=== PATIENT | female | born 1980 ===

== ENCOUNTER 2019-07-06 22:12 | Emergency (ER) | payer OTHER ==
[~2019-07-06] VITALS: Ht 157.5 cm; Wt 65.0 kg
--- NOTE | 2019-07-06 22:42 | NUR ---
PT C/O ABDOMINAL PAIN, N/V, DENIES ANY OTHER C/O AT THIS TIME. REPORTS HX OF SAME POST GASTIC SLEEVE IN 2016. REPORTS PAIN IS WORSE FOR LAST X1 WEEK. PT CONENCTED TO MONITORING, CALL LIGHT WITHIN REACH, ALL SAFETY MEASURES IN PLACE.
[2019-07-06] MEDS ORDERED: HYDROmorphone 2 MG/ML, 1ML IVPush PRN (23:00)
[2019-07-06] MEDS ORDERED: PROMETHAZINE 25 MG/ML, 1ML IM ONE (23:00)
[2019-07-06] MEDS ORDERED: SODIUM CHLORIDE FLUSH 10ML SYR IVF ONE (23:00)
[2019-07-06] MEDS: SODIUM CHLORIDE 0.9% 1,000ML IVBOLUS ONE ×2 (23:15→23:42)
[2019-07-06] MEDS ORDERED: HYDROmorphone 1 MG/ML, 1ML INJ ONE (23:19)
[2019-07-06] MEDS ORDERED: PROMETHAZINE 25 MG/ML, 1ML ONE (23:19)
--- NOTE | 2019-07-06 23:49 | NUR ---
PT RESTING ON [place] WITH FAMILY AT BS. CHEST PORT ACCESSED, MEDICATED PER MAR AND IVF STARTED. PT TOLERATED WELL. PT RESPORTS NO NEEDS AT THIS TIME. PROVIDED BLANKET, CONNECTED TO MONTIORING, CALL LIGHT WITHIN REACH.
[2019-07-06 23:54] LABS: MICROSCOPIC INDICATED
[2019-07-06 23:59] LABS: MEAN CORPUSCULAR HEMOGLOBIN 28.3 pg (27.0-34.8); MEAN CORPUSCULAR HGB CONC 32.4 g/dL (32.4-35.8); MEAN CORPUSCULAR VOLUME 87.4 fL (80-100); MEAN PLATELET VOLUME 8.2 fL (7.4-10.4); PLATELET COUNT 123 x10^3/uL (130-400); RED BLOOD COUNT 2.74 x10^6/uL (3.82-5.3); RED CELL DISTRIBUTION WIDTH 20.5 % (9.6-15.2)
[2019-07-07] LABS: MD YES
[2019-07-07 00:03] LABS: CULTURE INDICATED? NO
[2019-07-07 00:08] LABS: ALANINE AMINOTRANSFERASE 24 U/L (12-78); ALBUMIN 1.7 g/dL (3.4-5.0); ANION GAP 7 mmol/L (5-15); CALCIUM 6.9 mg/dL (8.5-10.1); CHLORIDE 117 mmol/L (98-107); CREATININE 0.36 mg/dL (0.55-1.02)
[2019-07-07 00:13] LABS: ALKALINE PHOSPHATASE 232 U/L (45-117); BILIRUBIN,TOTAL 1.4 mg/dL (0.2-1.0)
[2019-07-07 00:24] LABS: EOS% (MANUAL) 2 % (1-7); LYMPHS% (MANUAL) 36 % (22-44); MONOS#(MANUAL) 0.05 x10^3/uL (0.3-2.7); MONOS% (MANUAL) 1 % (2-9); SEG#(MANUAL) 3.05 x10^3/uL (1.8-6.8); SEGS% (MANUAL) 61 % (42-75)
[2019-07-07 00:25] LABS: ANISOCYTOSIS 1+
[2019-07-07 00:33] LABS: ECHINOCYTES 1+; SCHISTOCYTES 1+
[2019-07-07 00:34] LABS: OVALOCYTES 1+
[2019-07-07 00:35] LABS: <PLATELET ESTIMATE> ADEQUATE; <PLT MORPHOLOGY> NORMAL PLT MORPH
--- NOTE | 2019-07-07 01:04 | NUR ---
PT RESTING ON [facility] WITH FAMILY AT , AWAITING IMAGING AND LAB RESULTS AT THIS TIME. ALL MONITORS CONNECTED, CALL LIGHT WITHIN REACH.
--- NOTE | 2019-07-07 01:35 | NUR ---
PT PORT FLUSHED WITH 5ML HEPARIN AND D/C'D. PT TOLERATED WELL.
[2019-07-07 01:36] VITALS: BP 101/64
== END 2019-07-07 01:39 | disposition home or self-care (01) ==
LOC: ED 23:00
DX: K70.31 Alcoholic cirrhosis of liver with ascites (principal); R11.10 Vomiting, unspecified
CPT/HCPCS: 74176; 96361; 96372; 96374; 99284; J7030

== ENCOUNTER 2019-07-09 03:19 | Emergency (ER) | payer OTHER ==
[~2019-07-09] VITALS: Ht 160 cm; Wt 66.0 kg
--- NOTE | 2019-07-09 03:30 | NUR ---
BIB EMS W/ CO GENERALIZED ABD PAIN/N/V X TWO DAYS. ABD DISTENDED AND DIFFUSELY TENDER. HX OF LIVER CIRRHOSIS, LAST DRINK TODAY. +JAUNDICE. SEEN IN ED 07/06 FOR SAME. LBM "A FEW DAYS AGO". REPORTS BLOOD IN EMESIS, DENIES HX OF ESOPHAGEAL VARICES OR TAKING BLOOD THINNERS. EMS REPORTS NO VOMITING ENROUTE FROM [facility]. GIVEN IM PHENERGAN AND INTRANASAL FENTANYL PET WALKER WITH LITTLE IMPROVEMENT IN PAIN, 04/24. BP/SPO2 MONITORING IN PLACE. SO AT BEDSIDE. REPORT TO PRIMARY RNNETO.
--- NOTE | 2019-07-09 03:56 | NUR ---
RECEIVED REPORT FROM NOHEMI COBB TO ASSUME CARE OF PT. AT THIS TIME.
[2019-07-09] MEDS ORDERED: LIDOCAINE-MPF 1%, 5ML ONE (04:15)
[2019-07-09 04:23] LABS: ALANINE AMINOTRANSFERASE 29 U/L (12-78); ALBUMIN 2.1 g/dL (3.4-5.0); ANION GAP 9 mmol/L (5-15); CALCIUM 7.4 mg/dL (8.5-10.1); CHLORIDE 118 mmol/L (98-107); CREATININE 0.57 mg/dL (0.55-1.02)
[2019-07-09 04:25] LABS: ALKALINE PHOSPHATASE 270 U/L (45-117); TOTAL PROTEIN 7.4 g/dL (6.4-8.2)
[2019-07-09] MEDS ORDERED: PROMETHAZINE 25 MG/ML, 1ML ONE (04:29)
[2019-07-09] MEDS ORDERED: PROMETHAZINE 25 MG/ML, 1ML IM ONE (04:30)
[2019-07-09] MEDS ORDERED: HYDROmorphone 1 MG/ML, 1ML INJ ONE (04:30)
[2019-07-09] MEDS ORDERED: LIDOCAINE 1%, 10ML INFIL ONE (04:30)
[2019-07-09] MEDS ORDERED: HYDROmorphone 2 MG/ML, 1ML IVPush PRN (04:30)
[2019-07-09] MEDS ORDERED: SODIUM CHLORIDE 0.9% 1,000ML IVBOLUS ONE (04:30)
--- NOTE | 2019-07-09 04:34 | NUR ---
PARACENTESIS REMAINS IN PROCESS BY DR. PLEITEZ. WILL ACCESS PORT, REDRAW LABS, AND MEDICATE PT. WHEN DR. PLEITEZ FINISHED.
--- NOTE | 2019-07-09 05:04 | NUR ---
PORT ACCESSED; PT. TOLERATED WELL. PT MEDICATED PER MAR. IVF INFUSING. BLOOD DRAWN AND SENT TO LAB. AT BS FOR SUPPORT. PT. DENIES OTHER NEEDS AT THIS TIME. O2 PLACED FOR DESAT AFTER PAIN MEDS WITH IMMEDIATE INCREASE OF O2 SAT TO 96% AND ABOVE.
[2019-07-09 05:12] LABS: MEAN CORPUSCULAR HEMOGLOBIN 27.9 pg (27.0-34.8); MEAN CORPUSCULAR HGB CONC 32.3 g/dL (32.4-35.8); MEAN CORPUSCULAR VOLUME 86.6 fL (80-100); PLATELET COUNT 121 x10^3/uL (130-400); RED BLOOD COUNT 2.89 x10^6/uL (3.82-5.3); RED CELL DISTRIBUTION WIDTH 20.4 % (9.6-15.2)
[2019-07-09 05:38] LABS: MD YES
[2019-07-09 05:43] LABS: ANISOCYTOSIS 1+; BAND#(MANUAL) 0.15 x10^3/uL; BANDS%(MANUAL) 3 % (0-7); ECHINOCYTES 1+; EOS% (MANUAL) 2 % (1-7); LYMPH#(MANUAL) 2.04 x10^3/uL (1-3.4); LYMPHS% (MANUAL) 40 % (22-44); MONOS#(MANUAL) 0.26 x10^3/uL (0.3-2.7); MONOS% (MANUAL) 5 % (2-9); SEG#(MANUAL) 2.55 x10^3/uL (1.8-6.8); SEGS% (MANUAL) 50 % (42-75)
[2019-07-09 05:45] LABS: <PLATELET ESTIMATE> DECREASED; SCHISTOCYTES 1+
[2019-07-09 05:46] LABS: <PLT MORPHOLOGY> NORMAL PLT MORPH
[2019-07-09 05:52] LABS: CELLS COUNTED 76
[2019-07-09 06:42] VITALS: BP 102/61
== END 2019-07-09 06:43 | disposition home or self-care (01) ==
LOC: ED 04:02
DX: K70.31 Alcoholic cirrhosis of liver with ascites (principal)
CPT/HCPCS: 36415; 49083; 80053; 83690; 85025; 87070; 87205; 89051; 96361; 96372; 96374; 99285; J1170; J2550; J7030

== ENCOUNTER 2019-07-11 23:45 | Emergency (ER) | payer BC, OTHER ==
[~2019-07-11] VITALS: Ht 160 cm; Wt 65.1 kg
--- NOTE | 2019-07-12 01:10 | NUR ---
THIS IS A 38Y F THAT COMES FROM HOME FOR ABD PAIN LASTING 3 DAYS. PT STS PAIN IS WORSENING AND SHE IS UNABLE TO EAT BECAUSE OF THIS. PT HAS HX OF GASTRIC SX LAST ONE 2016. HX OF CARDIAC ARREST 06/18/19. PT CONNECTED TO ALL MONITORS, VSS CALL LIGHT IN REACH AT BEDSIDE. URINE SAMPLE SENT TO LAB
--- NOTE | 2019-07-12 01:36 | NUR ---
URINE SENT TO LAB
[2019-07-12 02:00] LABS: CULTURE INDICATED? YES; MICROSCOPIC INDICATED
[2019-07-12] MEDS ORDERED: OMNIPAQUE 350 MG/ML, 100ML BOTTLE ONE (02:04)
[2019-07-12] MEDS ORDERED: DIPHENHYDRAMINE 50 MG/ML, 1ML ONE (02:10)
[2019-07-12] MEDS ORDERED: PROCHLORPERAZINE 5 MG/ML, 2ML ONE (02:10)
[2019-07-12] MEDS ORDERED: MORPHINE SULFATE 4 MG/ML, 1ML ONE (02:11)
[2019-07-12] MEDS ORDERED: DIPHENHYDRAMINE 50 MG/ML, 1ML IVPush ONE (02:30)
[2019-07-12] MEDS ORDERED: PROCHLORPERAZINE 5 MG/ML, 2ML IVPush ONE (02:30)
[2019-07-12] MEDS ORDERED: MORPHINE SULFATE 4 MG/ML, 1ML IVPush PRN (02:30)
[2019-07-12 02:48] LABS: ALANINE AMINOTRANSFERASE 23 U/L (12-78); ALBUMIN 1.9 g/dL (3.4-5.0); ANION GAP 8 mmol/L (5-15); CALCIUM 7.3 mg/dL (8.5-10.1); CHLORIDE 114 mmol/L (98-107); CREATININE 0.49 mg/dL (0.55-1.02)
[2019-07-12 02:50] LABS: ALKALINE PHOSPHATASE 241 U/L (45-117); BILIRUBIN,TOTAL 2.4 mg/dL (0.2-1.0); TOTAL PROTEIN 6.8 g/dL (6.4-8.2)
--- NOTE | 2019-07-12 02:52 | NUR ---
PT TO CT Addendum: 07/12/19 at 0259 by [email or web address] PT MEDICATED PRIOR TO CT WITH CONTRAST PER MD
[2019-07-12 02:57] LABS: MEAN CORPUSCULAR HGB CONC 32.1 g/dL (32.4-35.8); MEAN CORPUSCULAR VOLUME 87.2 fL (80-100); MEAN PLATELET VOLUME 8.4 fL (7.4-10.4); PLATELET COUNT 119 x10^3/uL (130-400); RED BLOOD COUNT 3.11 x10^6/uL (3.82-5.3); RED CELL DISTRIBUTION WIDTH 20.8 % (9.6-15.2)
[2019-07-12 03:15] LABS: MD YES
[2019-07-12 03:20] VITALS: BP 128/84
[2019-07-12 03:20] LABS: EOS#(MANUAL) 0.43 x10^3/uL (0.0-0.4); EOS% (MANUAL) 8 % (1-7); LYMPH#(MANUAL) 2.32 x10^3/uL (1-3.4); LYMPHS% (MANUAL) 43 % (22-44); SEG#(MANUAL) 2.65 x10^3/uL (1.8-6.8); SEGS% (MANUAL) 49 % (42-75)
--- NOTE | 2019-07-12 03:21 | NUR ---
BREAK RN: PT BACK FROM CT, RESTING ON GURNEY IN NAD. DENIES ANY NEEDS AT THIS TIME. AWAITING CT RESULTS. WILL CONTINUE TO MONITOR.
[2019-07-12 03:22] LABS: <PLATELET ESTIMATE> DECREASED; <PLT MORPHOLOGY> NORMAL PLT MORPH; ANISOCYTOSIS 1+; HYPOCHROMIA 1+; MICROCYTOSIS 1+; OVALOCYTES 1+; TARGET CELLS 1+
--- NOTE | 2019-07-12 04:13 | NUR ---
PT GIVEN ICE WATER FOR PO CHALLENGE, PT TOLERATING SIPS WITHOUT NAUSEA OR DIFFICULTY. MD TO BE UPDATED
--- NOTE | 2019-07-12 04:17 | NUR ---
AT BEDSIDE FOR REASSESSMENT OF PT
== END 2019-07-12 04:36 | disposition home or self-care (01) ==
LOC: ED 07-12 01:24
DX: K70.31 Alcoholic cirrhosis of liver with ascites (principal); R10.84 Generalized abdominal pain; R11.2 Nausea with vomiting, unspecified; N28.1 Cyst of kidney, acquired
CPT/HCPCS: 36415; 74177; 80053; 81001; 81025; 83690; 85025; 87086; 87147; 93005; 96374; 96375; 99284; J0780; J1200; J2270; Q9967

== ENCOUNTER 2019-07-20 20:21 | Emergency (ER) | payer BC, OTHER ==
[~2019-07-20] VITALS: Ht 160 cm; Wt 65.5 kg
--- NOTE | 2019-07-20 20:59 | NUR ---
First contact with pt. Pt c/o SOB, N/V, upper abd pain x2 weeks. Pt states seen here multiple times for same, no improvement. Pt speaking in full sentences, noted abd distention. Pt placed in gown and positioned for comfort in bed with warm blankets. Continuous heart, oxygen and BP monitors applied, all safety measures observed. Awaiting provider eval.
[2019-07-20] MEDS ORDERED: HYDROmorphone 2 MG/ML, 1ML IVPush PRN (21:30)
[2019-07-20] MEDS ORDERED: PROMETHAZINE 25 MG/ML, 1ML IM ONE (21:30)
--- NOTE | 2019-07-20 21:43 | NUR ---
Pt's port accessed and labs collected, labeled at bedside, sent to lab. Pt taken to US via [place].
[2019-07-20 21:59] LABS: ALANINE AMINOTRANSFERASE 21 U/L (12-78); ALBUMIN 1.8 g/dL (3.4-5.0); ANION GAP 6 mmol/L (5-15); CALCIUM 7.2 mg/dL (8.5-10.1); CHLORIDE 113 mmol/L (98-107); CREATININE 0.57 mg/dL (0.55-1.02)
[2019-07-20 22:03] LABS: ALKALINE PHOSPHATASE 217 U/L (45-117); BILIRUBIN,TOTAL 1.5 mg/dL (0.2-1.0); MD YES; MEAN CORPUSCULAR HEMOGLOBIN 28.1 pg (27.0-34.8); MEAN CORPUSCULAR HGB CONC 31.6 g/dL (32.4-35.8); MEAN PLATELET VOLUME 8.6 fL (7.4-10.4); PLATELET COUNT 61 x10^3/uL (130-400); RED BLOOD COUNT 2.65 x10^6/uL (3.82-5.3); RED CELL DISTRIBUTION WIDTH 26.6 % (9.6-15.2); TOTAL PROTEIN 6.4 g/dL (6.4-8.2); TROPONIN I < 0.015 ng/mL (0.000-0.045)
[2019-07-20 22:09] LABS: ANISOCYTOSIS 1+; EOS#(MANUAL) 0.07 x10^3/uL (0.0-0.4); EOS% (MANUAL) 2 % (1-7); HYPOCHROMIA 1+; LYMPH#(MANUAL) 1.41 x10^3/uL (1-3.4); LYMPHS% (MANUAL) 38 % (22-44); MICROCYTOSIS 1+; MONOS#(MANUAL) 0.26 x10^3/uL (0.3-2.7); MONOS% (MANUAL) 7 % (2-9); SEG#(MANUAL) 1.96 x10^3/uL (1.8-6.8); SEGS% (MANUAL) 53 % (42-75)
[2019-07-20 22:10] LABS: OVALOCYTES 1+; SPHEROCYTES 1+; TARGET CELLS 1+
[2019-07-20 22:11] LABS: <PLATELET ESTIMATE> DECREASED; <PLT MORPHOLOGY> NORMAL PLT MORPH; SCHISTOCYTES 1+
[2019-07-20] MEDS ORDERED: PROMETHAZINE 25 MG/ML, 1ML ONE (22:25)
[2019-07-20] MEDS ORDERED: HYDROmorphone 1 MG/ML, 1ML INJ ONE (22:25)
--- NOTE | 2019-07-20 22:30 | NUR ---
Pt medicated per MAR, denies other needs.
[2019-07-20] MEDS ORDERED: LIDOCAINE-MPF 1%, 5ML ONE (22:55)
--- NOTE | 2019-07-20 23:15 | NUR ---
Pt resting in bed with eyes closed, resp even and unlabored, NADN.
[2019-07-20] MEDS ORDERED: DIPHENHYDRAMINE 50 MG/ML, 1ML ONE (23:19)
--- NOTE | 2019-07-20 23:23 | NUR ---
Pt pre-medicated with Benadryl per SEP. Pt to CT via sal.
[2019-07-20] MEDS ORDERED: DIPHENHYDRAMINE 50 MG/ML, 1ML IVPush PRN (23:30)
[2019-07-20] MEDS ORDERED: OMNIPAQUE 350 MG/ML, 100ML BOTTLE ONE (23:35)
--- NOTE | 2019-07-20 23:38 | NUR ---
Pt back from CT, resting in bed with eyes closed, resp even and unlabored, NADN. Appears to have tolerated the CT contrast without adverse reaction.
--- NOTE | 2019-07-21 00:07 | NUR ---
Pt continues resting in bed with eyes closed, resp even and unlabored, NADN.
--- NOTE | 2019-07-21 01:00 | NUR ---
Pt continues resting in bed with eyes closed, resp even and unlabored, NADN.
[2019-07-21 01:10] LABS: CELLS COUNTED 22
--- NOTE | 2019-07-21 01:22 | NUR ---
Dr. Montemayor at bedside to discuss POC with pt.
--- NOTE | 2019-07-21 01:40 | NUR ---
PORT ACCESSED DC'D, FLUSHED WITH HEPARIN FLUSH PER PROTOCOL. POC DISCUSSED. PT DECLINES ASSISTANCE GETTING DRESSED. CALL LIGHT AT BEDSIDE. AWAITING DC PAPERWORK AT THIS TIME.
[2019-07-21 01:48] VITALS: BP 119/54
--- NOTE | 2019-07-21 01:54 | NUR ---
pt ambulatory with steady gait to dc desk
[2019-07-21] MEDS ORDERED: POTA25TA PO (19:12)
[2019-07-21] MEDS ORDERED: MAGN300C PO (19:12)
[2019-07-21] MEDS ORDERED: LACT10SO28 PO (19:13)
[2019-07-21] MEDS ORDERED: ACET650S21 PO (19:13)
[2019-07-21] MEDS ORDERED: FURO-93 PO (19:13)
== END 2019-07-21 01:55 | disposition home or self-care (01) ==
LOC: ED 21:17
DX: R10.84 Generalized abdominal pain (principal); R06.00 Dyspnea, unspecified; D53.9 Nutritional anemia, unspecified; K70.31 Alcoholic cirrhosis of liver with ascites
CPT/HCPCS: 36415; 49083; 71275; 74177; 80053; 82042; 83615; 83690; 84484; 84703; 85025; 85379; 87070; 87205; 89051; 93005; 93971; 96372; 96374; 96375; 99285; J1170; J1200; J2550; Q9967

== ENCOUNTER 2019-07-21 16:16 | Inpatient (IN) | payer OTHER ==
[~2019-07-21] VITALS: Ht 160 cm; Wt 65.6 kg
--- NOTE | 2019-07-21 16:45 | NUR ---
lemon grower: Pt ambulatory to ED room 23 from lobby in [facility] at this time. Pt declined wheelchair to room.
--- NOTE | 2019-07-21 16:55 | NUR ---
THIS IS A 38 YO FEMALE COMING IN FOR INCREASED DISTENTION OF ABDOMEN LEADING TO CHEST PAIN AND DIFFICULTY TAKING DEEP BREATHS. PATIENT STATES "I WAS SEEN HERE LAST NIGHT FOR ABDOMINAL PAIN, I HAVE CIRRHOSIS, AND THEY DRAINED 125ML TO TEST FOR INFECTION".PATIENT STATES NOW THERE IS AN INCREASE IN DISTENTION, LEADING TO PRESSURE AND PAIN IN CHEST RATED 10/10, SWELLING IN THE LOWER LEGS, AND DIFFICULTY TAKING DEEP BREATHS. PATIENT DESCRIBED THE PAIN THROBBING, "HEAD PRESSURE, I CAN FEEL MY HEARTBEAT IN MY HEAD", AND CONSTANT. PATIENT HAS HX OF CARDIAC ARREST 1 MONTH AGO DUE TO LOW POTASSIUM. PATIENT HAS PORT PLACED IN RIGHT UPPER CHEST FOR ACCESS, AND WAS PREVIOUSLY GIVEN TPA THROUGH PORT. PATIENT'S ABDOMEN IS DISTENDED, ROUND, AND TENDER TO PALPATION IN ALL QUADRANTS. ALL MONITORING IN PLACE, NSR NOTED ON MONITOR, VSS, NAD, CALL LIGHT IN REACH, FAMILY IN ROOM.
[2019-07-21] MEDS ORDERED: MORPHINE SULFATE 4 MG/ML, 1ML IVPush PRN (17:00)
[2019-07-21] MEDS ORDERED: DIPHENHYDRAMINE 50 MG/ML, 1ML IVPush ONE (17:00)
[2019-07-21 17:04] LABS: ALANINE AMINOTRANSFERASE 22 U/L (12-78); ALBUMIN 1.9 g/dL (3.4-5.0); ANION GAP 5 mmol/L (5-15); CALCIUM 7.1 mg/dL (8.5-10.1); CHLORIDE 112 mmol/L (98-107)
[2019-07-21 17:09] LABS: ALKALINE PHOSPHATASE 209 U/L (45-117); BILIRUBIN,TOTAL 1.6 mg/dL (0.2-1.0); TOTAL PROTEIN 6.8 g/dL (6.4-8.2); TROPONIN I < 0.015 ng/mL (0.000-0.045)
[2019-07-21] MEDS ORDERED: ONDANSETRON 2MG/ML, 2ML ONE (17:09)
[2019-07-21] MEDS ORDERED: DIPHENHYDRAMINE 50 MG/ML, 1ML ONE (17:09)
[2019-07-21] MEDS ORDERED: MORPHINE SULFATE 4 MG/ML, 1ML ONE ×2 (17:09→21:34)
[2019-07-21] MEDS ORDERED: PROMETHAZINE 25 MG/ML, 1ML ONE (17:13)
[2019-07-21 17:27] LABS: MD YES; MEAN CORPUSCULAR HEMOGLOBIN 28.1 pg (27.0-34.8); MEAN CORPUSCULAR HGB CONC 31.6 g/dL (32.4-35.8); MEAN CORPUSCULAR VOLUME 89.1 fL (80-100); MEAN PLATELET VOLUME 8.6 fL (7.4-10.4); PLATELET COUNT 62 x10^3/uL (130-400); RED BLOOD COUNT 2.79 x10^6/uL (3.82-5.3); RED CELL DISTRIBUTION WIDTH 27.1 % (9.6-15.2)
[2019-07-21] MEDS ORDERED: PROMETHAZINE 25 MG/ML, 1ML IM ONE (17:30)
--- NOTE | 2019-07-21 17:36 | NUR ---
MAIDA RN PLACED PORT WITH STERILE TECHNIQUE. PATIENT MEDICATED THROUGH PORT PER EMAR, TOELRATED WELL. VSS, NAD, DENIES NEEDS AT THIS TIME.
[2019-07-21 17:52] LABS: BASOS#(MANUAL) 0.03 x10^3/uL (0-0.1); BASOS% (MANUAL) 1 % (0-1); EOS#(MANUAL) 0.03 x10^3/uL (0.0-0.4); EOS% (MANUAL) 1 % (1-7); LYMPH#(MANUAL) 0.96 x10^3/uL (1-3.4); LYMPHS% (MANUAL) 29 % (22-44); MONOS% (MANUAL) 9 % (2-9); SEG#(MANUAL) 1.98 x10^3/uL (1.8-6.8); SEGS% (MANUAL) 60 % (42-75)
[2019-07-21 17:53] LABS: HYPOCHROMIA 1+; OVALOCYTES 1+; POLYCHROMASIA 1+; SCHISTOCYTES 1+
[2019-07-21 17:54] LABS: TARGET CELLS 1+
[2019-07-21 17:55] LABS: CRENATED 1+
[2019-07-21 17:56] LABS: MICROCYTOSIS 1+
[2019-07-21 17:57] LABS: <PLATELET ESTIMATE> DECREASED; <PLT MORPHOLOGY> NORMAL PLT MORPH
--- NOTE | 2019-07-21 18:00 | NUR ---
pt to ct
--- NOTE | 2019-07-21 18:25 | NUR ---
PATIENT COMING BACK FROM CT WITH CRUSHING CHEST PAIN. EKG COMPLETED, GIVEN TO MD HERNANDO. PT PLACED ON 2L NC.
[2019-07-21] MEDS ORDERED: OMNIPAQUE 350 MG/ML, 100ML BOTTLE ONE (18:31)
[2019-07-21] MEDS ORDERED: LORazepam 2 MG/ML, 1ML ONE (18:36)
[2019-07-21] MEDS ORDERED: FENTANYL PF 100 MCG/2ML ONE (18:36)
--- NOTE | 2019-07-21 18:47 | NUR ---
1837: MD TO ROOM TO DISCUSS RESULTS AND PLAN OF CARE PATIENT MEDICATED PER EMAR FOR PAIN AND SHAKING, TOLERATED WELL. IVF STARTED TO MAINTAIN BLOOD PRESSURE. CALL LIGHT IN REACH, VSS AT THIS TIME, CALL LIGHT IN REACH, FAMILY IN ROOM. PATIENT STATES PAIN IS DOWN TO 8-9/10
[2019-07-21] MEDS ORDERED: FENTANYL PF 100 MCG/2ML IV ONE (19:00)
[2019-07-21] MEDS ORDERED: SODIUM CHLORIDE 0.9%, 500ML IVBOLUS ONE (19:00)
[2019-07-21] MEDS ORDERED: LORazepam 2 MG/ML, 1ML IVPush ONE (19:00)
--- NOTE | 2019-07-21 19:05 | NUR ---
PATIENT STATES PAIN IS NOW 6-7/10, RESTING ON GURNEY, NO LABORED BREATHING, SPEAKING IN FULL SENTENCES. VSS, NAD, CALL LIGHT IN REACH, FAMILY IN ROOM
[2019-07-21] MEDS ORDERED: POTA25TA PO (19:12)
[2019-07-21] MEDS ORDERED: MAGN300C PO (19:12)
[2019-07-21] MEDS ORDERED: ACET650S21 PO (19:13)
[2019-07-21] MEDS ORDERED: FURO-93 PO (19:13)
[2019-07-21] MEDS ORDERED: LACT10SO28 PO (19:13)
--- NOTE | 2019-07-21 19:48 | NUR ---
PATIENT RESTING, RESPIRATIONS EVEN AND UNLABORED. CALL LIGHT IN REACH, VSS, ON 2L NC, ALL MONITORING IN PLACE. FAMILY IN ROOM.
[2019-07-21] MEDS ORDERED: morphine SULFATE 10 MG/ML, 1ML IVPush PRN (20:00)
[2019-07-21] MEDS ORDERED: hydrALAzine 20 MG/ML, 1ML IVPush PRN (20:00)
[2019-07-21 20:28] LABS: FREE T4 (FREE THYROXINE) 1.33 ng/dL (0.76-1.46)
[2019-07-21] MEDS ORDERED: LACTULOSE 10 GM/15 ML UDC PO SCH (21:00)
--- NOTE | 2019-07-21 21:00 | NUR ---
LABS DRAWN OFF PORT PER LAB ORDERS.
--- NOTE | 2019-07-21 21:30 | NUR ---
PHARMACY SLIP SENT FOR ALBUMIN
[2019-07-21 21:31] LABS: INTERNATIONAL NORMALIZED RATIO 1.92 (0.93-1.1); PROTHROMBIN TIME 19.7 Seconds (9.6-11.5)
--- NOTE | 2019-07-21 21:52 | NUR ---
CALL PLACED TO PHARMACY TO CHECK WHERE ALBUMIN IS. PHARMACY STATES THEY WILL SEND IT SHORTLY
[2019-07-21] MEDS: ALBUMIN HUMAN 25% 100 ML IV SCH (22:01)
--- NOTE | 2019-07-21 22:07 | NUR ---
ALBUMIN STARTED PRIOR TO TRANSPORT
--- NOTE | 2019-07-21 22:13 | NUR ---
REPORT GIVEN TO NOHEMI BARRERA. PLAN OF CARE DISCUSSED. RN AWARE ALBUMIN INFUSING AT TIME OF TRANSFER.
[2019-07-21 23:14] VITALS: BP 106/66
[2019-07-21] MEDS: OXYcodone IR 5MG TABLET PO PRN (23:22)
[2019-07-21] MEDS: LACTULOSE 10 GM/15 ML UDC PO SCH (23:22)
[2019-07-22] VITALS (10 sets, daily range): BP systolic 104–117; BP diastolic 60–75
[2019-07-22] MEDS: OXYcodone IR 5MG TABLET PO PRN ×6 (00:05→21:16)
[2019-07-22 00:19] LABS: MICROSCOPIC NOT IND
[2019-07-22 00:22] LABS: CULTURE INDICATED? NO
[2019-07-22] MEDS: TEMAZEPAM 15 MG CAPSULE PO PRN ×2 (00:50→20:39)
[2019-07-22] MEDS: ALBUMIN HUMAN 25% 100 ML IV SCH ×2 (04:03→10:59)
[2019-07-22] MEDS: PROMETHAZINE 25 MG/ML, 1ML IM PRN ×2 (04:06→09:00)
[2019-07-22 05:47] LABS: CHLORIDE 108 mmol/L (98-107)
[2019-07-22 05:56] LABS: ALANINE AMINOTRANSFERASE 18 U/L (12-78); ALBUMIN 2.3 g/dL (3.4-5.0); ALKALINE PHOSPHATASE 156 U/L (45-117); ANION GAP 8 mmol/L (5-15); BILIRUBIN,TOTAL 2.3 mg/dL (0.2-1.0); CALCIUM 6.9 mg/dL (8.5-10.1); CHOL/HDL RATIO 3.1; CHOLESTEROL, TOTAL 108 mg/dL (140-239); CREATININE 0.52 mg/dL (0.55-1.02); HDL CHOL % 32 % (28-40); HDL CHOLESTEROL (DIRECT) 35 mg/dL (40-60); LDL CHOLESTEROL,CALCULATED 58 mg/dL (54-169); LDL/HDL RATIO 1.7 (0.5-3.0); TOTAL PROTEIN 5.8 g/dL (6.4-8.2); TRIGLYCERIDES 76 mg/dL (50-200); VLDL CHOLESTEROL 15 mg/dL (0-25)
[2019-07-22 08:00] LABS: MEAN CORPUSCULAR HEMOGLOBIN 28.8 pg (27.0-34.8); MEAN CORPUSCULAR HGB CONC 32.2 g/dL (32.4-35.8); MEAN CORPUSCULAR VOLUME 89.6 fL (80-100); MEAN PLATELET VOLUME 8.6 fL (7.4-10.4); PLATELET COUNT 50 x10^3/uL (130-400); RED CELL DISTRIBUTION WIDTH 26.2 % (9.6-15.2)
[2019-07-22 08:01] LABS: MD YES
[2019-07-22 08:05] LABS: LYMPH#(MANUAL) 1.22 x10^3/uL (1-3.4); LYMPHS% (MANUAL) 58 % (22-44); MONOS#(MANUAL) 0.17 x10^3/uL (0.3-2.7); MONOS% (MANUAL) 8 % (2-9); SEG#(MANUAL) 0.71 x10^3/uL (1.8-6.8); SEGS% (MANUAL) 34 % (42-75)
[2019-07-22 08:07] LABS: <PLATELET ESTIMATE> DECREASED; <PLT MORPHOLOGY> NORMAL PLT MORPH; ANISOCYTOSIS 2+; HYPOCHROMIA 1+; POLYCHROMASIA 1+
[2019-07-22 08:11] LABS: TARGET CELLS 1+
[2019-07-22] MEDS: MAGNESIUM OXIDE 400 MG TABLET PO SCH ×2 (09:00→09:02)
[2019-07-22] MEDS: FUROSEMIDE 20 MG TABLET PO SCH ×2 (09:00→09:02)
[2019-07-22] MEDS: SPIRONOLACTONE 25 MG TABLET PO SCH ×2 (09:00→09:02)
[2019-07-22] MEDS: LACTULOSE 10 GM/15 ML UDC PO SCH ×4 (09:00→20:39)
[2019-07-22] MEDS: POTASSIUM CHLORIDE 20 MEQ TAB.ER.PRT PO SCH ×2 (09:00→09:02)
[2019-07-22] MEDS: DIPHENHYDRAMINE 50 MG/ML, 1ML IVPush PRN ×2 (12:04→18:31)
[2019-07-22] MEDS ORDERED: LIDOCAINE 1%, 10ML ONE (12:34)
[2019-07-23 00:20] VITALS: BP 115/73
[2019-07-23] MEDS: DIPHENHYDRAMINE 50 MG/ML, 1ML IVPush PRN ×2 (02:00→08:59)
[2019-07-23] MEDS: OXYcodone IR 5MG TABLET PO PRN ×2 (02:00→06:21)
[2019-07-23] MEDS ORDERED: POTASSIUM CHLORIDE 20 MEQ TAB.ER.PRT PO ONE (07:00)
[2019-07-23 07:11] VITALS: BP 115/71
[2019-07-23 08:06] LABS: ALANINE AMINOTRANSFERASE 16 U/L (12-78); ALBUMIN 2.3 g/dL (3.4-5.0); ANION GAP 4 mmol/L (5-15); CALCIUM 7.7 mg/dL (8.5-10.1); CHLORIDE 107 mmol/L (98-107); CREATININE 0.43 mg/dL (0.55-1.02)
[2019-07-23 08:08] LABS: ALKALINE PHOSPHATASE 145 U/L (45-117); BILIRUBIN,TOTAL 3.3 mg/dL (0.2-1.0); TOTAL PROTEIN 5.8 g/dL (6.4-8.2)
[2019-07-23 08:24] LABS: MEAN CORPUSCULAR HEMOGLOBIN 29.2 pg (27.0-34.8); MEAN CORPUSCULAR HGB CONC 32.8 g/dL (32.4-35.8); MEAN CORPUSCULAR VOLUME 89.1 fL (80-100); MEAN PLATELET VOLUME 9.9 fL (7.4-10.4); RED BLOOD COUNT 2.56 x10^6/uL (3.82-5.3); RED CELL DISTRIBUTION WIDTH 24.6 % (9.6-15.2)
[2019-07-23 08:33] LABS: PLATELET COUNT 44 x10^3/uL (130-400)
[2019-07-23 08:37] LABS: MD YES
[2019-07-23 08:39] LABS: EOS#(MANUAL) 0.12 x10^3/uL (0.0-0.4); EOS% (MANUAL) 5 % (1-7); LYMPH#(MANUAL) 0.94 x10^3/uL (1-3.4); LYMPHS% (MANUAL) 39 % (22-44); MONOS#(MANUAL) 0.34 x10^3/uL (0.3-2.7); MONOS% (MANUAL) 14 % (2-9); SEG#(MANUAL) 1.01 x10^3/uL (1.8-6.8); SEGS% (MANUAL) 42 % (42-75)
[2019-07-23 08:40] LABS: ANISOCYTOSIS 1+; HYPOCHROMIA 1+; MICROCYTOSIS 1+; POLYCHROMASIA 1+; TARGET CELLS 1+
[2019-07-23 08:42] LABS: OVALOCYTES 1+
[2019-07-23 08:43] LABS: <PLATELET ESTIMATE> DECREASED; LARGE PLATELETS 1+; SCHISTOCYTES 1+
[2019-07-23] MEDS ORDERED: SPIRONOLACTONE 25 MG TABLET PO SCH (09:00)
[2019-07-23] MEDS: POTASSIUM CHLORIDE 20 MEQ TAB.ER.PRT PO SCH (09:00)
[2019-07-23] MEDS: FUROSEMIDE 20 MG TABLET PO SCH (09:00)
[2019-07-23] MEDS: MAGNESIUM OXIDE 400 MG TABLET PO SCH (09:00)
[2019-07-23] MEDS: LACTULOSE 10 GM/15 ML UDC PO SCH (09:00)
[2019-07-23] MEDS ORDERED: FLU VACC QS2019-20 36MOS UP/PF 0.5 ML IM-VACC ONE (12:30)
[2019-07-23 12:33] VITALS: BP 115/73
[2019-07-23] MEDS ORDERED: SPIR25TA PO (14:30)
== END 2019-07-23 14:45 | disposition home or self-care (01) | DRG 809 ==
LOC: ED 17:50 → EDIP 19:02 → 4EST 22:28 → DCLOUNGE 07-23 14:44
PROVIDERS: ADMIT Internal Medicine; ATTEND Internal Medicine
PROC: 30233N1 Transfusion of Nonautologous Red Blood Cells into Peripheral Vein, Percutaneous Approach (ICD-10-PCS; principal; 2019-07-22)
DX: D61.818 Other pancytopenia (principal); D68.9 Coagulation defect, unspecified; J90 Pleural effusion, not elsewhere classified; R18.8 Other ascites; K74.60 Unspecified cirrhosis of liver; D69.59 Other secondary thrombocytopenia; D72.819 Decreased white blood cell count, unspecified; E83.42 Hypomagnesemia; E83.51 Hypocalcemia; E87.6 Hypokalemia; E88.09 Other disorders of plasma-protein metabolism, not elsewhere classified; Z86.74 Personal history of sudden cardiac arrest; Z91.14 Patient's other noncompliance with medication regimen; Z98.84 Bariatric surgery status
CPT/HCPCS: 36415; 83036; 96360; 96372; 99285; J3490; 49083; 71045; 71275; 74176; 80053; 80061; 81003; 82306; 82607; 82728; 83540; 83550; 83735; 84439; 84443; 84466; 84484; 85014; 85018; 85025; 85610; 86850; 86900; 86923; 93005; 93970; G0378; J2550; J3010; P9047; Q9967; J1200; J2060; J2270; J7040; P9016

== ENCOUNTER 2019-07-27 16:05 | Inpatient (IN) | payer OTHER ==
[~2019-07-27] VITALS: Ht 160 cm; Wt 59.2 kg
[~2019-07-27 16:05] MED LIST: ACET650S21 PO; FURO-93 PO; LACT10SO28 PO; MAGN300C PO; POTA25TA PO; SPIR25TA PO
--- NOTE | 2019-07-27 16:43 | NUR ---
THIS IS A 38 YO FEMALE BIB [facility] FOR CHEST PAIN STARTING ABOUT 1400. PATIENT HAS HX OF [place], CIRRHOSIS WITH CHRONIC ABD PAIN. PATIENT DESCRIBED CHEST PAIN ACHING, RATED 8/10, AND IS INTERMITTENT WITH RADIATION DOWN BOTH ARMS. PATIENT STATES "I HAVE A LITTLE SHORTNESS OF BREATH, BUT I USUALLY DO ANYWAYS FROM THE CIRRHOSSI AND FLUID BUILDUP". PATIENT HAS PORT ON LEFT CHEST FOR ACCESS. PER [facility], "PATIENT REFUSED TAKING ASPIRIN, 12 LEAD WAS DONE AND PATIENT WAS IN SINUS RHYTHM". PATIENT A&OX4, VSS AT THIS TIME, ALL MONITORING IN PLACE, NAD, CALL LIGHT IN REACH, FAMILY IN ROOM.
--- NOTE | 2019-07-27 17:18 | NUR ---
PORT ACCESSED WITH 0.75INCH, PATIENT TOLERATED WELL. LABS DRAWN.
[2019-07-27 17:34] LABS: MD YES; MEAN CORPUSCULAR HEMOGLOBIN 28.7 pg (27.0-34.8); MEAN CORPUSCULAR HGB CONC 32.4 g/dL (32.4-35.8); MEAN CORPUSCULAR VOLUME 88.4 fL (80-100); MEAN PLATELET VOLUME 8.3 fL (7.4-10.4); PLATELET COUNT 98 x10^3/uL (130-400); RED CELL DISTRIBUTION WIDTH 25.8 % (9.6-15.2)
[2019-07-27 17:35] LABS: ALANINE AMINOTRANSFERASE 21 U/L (12-78); ALBUMIN 2.3 g/dL (3.4-5.0); ANION GAP 6 mmol/L (5-15); CALCIUM 6.9 mg/dL (8.5-10.1); CHLORIDE 119 mmol/L (98-107); CREATININE 0.51 mg/dL (0.55-1.02)
[2019-07-27 17:40] LABS: ALKALINE PHOSPHATASE 182 U/L (45-117); BILIRUBIN,TOTAL 1.7 mg/dL (0.2-1.0); TOTAL PROTEIN 6.9 g/dL (6.4-8.2); TROPONIN I < 0.015 ng/mL (0.000-0.045)
[2019-07-27 17:45] LABS: BAND#(MANUAL) 0.05 x10^3/uL; BANDS%(MANUAL) 1 % (0-7); EOS#(MANUAL) 0.32 x10^3/uL (0.0-0.4); EOS% (MANUAL) 6 % (1-7); LYMPH#(MANUAL) 1.54 x10^3/uL (1-3.4); LYMPHS% (MANUAL) 29 % (22-44); MONOS#(MANUAL) 0.27 x10^3/uL (0.3-2.7); MONOS% (MANUAL) 5 % (2-9); SEG#(MANUAL) 3.13 x10^3/uL (1.8-6.8); SEGS% (MANUAL) 59 % (42-75)
[2019-07-27 17:46] LABS: ANISOCYTOSIS 1+; HYPOCHROMIA 1+; MICROCYTOSIS 1+; POLYCHROMASIA 1+
[2019-07-27 17:47] LABS: <PLATELET ESTIMATE> DECREASED; ACANTHOCYTES 1+; SCHISTOCYTES 1+; TARGET CELLS 1+
[2019-07-27 17:48] LABS: <PLT MORPHOLOGY> NORMAL PLT MORPH
--- NOTE | 2019-07-27 17:56 | NUR ---
TASK RN: PT AMBULATED STEADILY TO RESTROOM TO PROVIDE UA.
[2019-07-27 18:20] LABS: MICROSCOPIC NOT IND
[2019-07-27 18:24] LABS: CULTURE INDICATED? NO
[2019-07-27] MEDS ORDERED: PROMETHAZINE 25 MG/ML, 1ML IM ONE (18:30)
[2019-07-27] MEDS: D5%-0.45% NACL 1,000 ML IV SCH ×3 (18:30→22:03)
[2019-07-27] MEDS ORDERED: MORPHINE SULFATE 4 MG/ML, 1ML ONE ×2 (18:35→20:12)
[2019-07-27] MEDS ORDERED: PROMETHAZINE 25 MG/ML, 1ML ONE (18:37)
[2019-07-27] MEDS: MORPHINE SULFATE 4 MG/ML, 1ML IVPush PRN ×2 (18:42→20:15)
--- NOTE | 2019-07-27 18:47 | NUR ---
PATIENT MEDICATED PER EMAR, TOELRATED WELL. VSS AT THIS TIME, IVF RUNNING, NAD, CALL LIGHT IN REACH, FAMILY IN ROOM.
--- NOTE | 2019-07-27 19:16 | NUR ---
DISCUSSED POC (ADMIT) WITH PT/SO WHO DEMONSTRATE UNDERSTANDING. PT DENIES PAIN/NEED FOR ADDITIONAL MEDICATIONS. IVF CONTINUES TO INFUSE. AWAITING ADMIT.
--- NOTE | 2019-07-27 20:16 | NUR ---
PATIENT GIVEN SECOND DOSE OF MORPHINE PER EMAR ND MD ORDERS, FOR 9/10 ABD AND CHEST PAIN. TOLERATED WELL, VSS, TACHYCARDIC AT 115, NAD, CALL LIGHT IN REACH, NEEDS ADDRESSED. WAITING FOR ADMITTING MD TO SEE
--- NOTE | 2019-07-27 20:32 | NUR ---
ATTEMPT TO CALL REPORT X1
[2019-07-27] MEDS ORDERED: ONDANSETRON 2MG/ML, 2ML IVPush PRN (21:00)
[2019-07-27] MEDS ORDERED: ONDANSETRON ODT 4 MG PO PRN (21:00)
[2019-07-27] MEDS ORDERED: hydrALAzine 20 MG/ML, 1ML IVPush PRN (21:00)
[2019-07-27 21:26] VITALS: BP 107/63
[2019-07-27] MEDS: SUCRALFATE 1 GM/10 ML UDC PO SCH (21:54)
[2019-07-27] MEDS: LACTULOSE 10 GM/15 ML UDC PO SCH (21:54)
[2019-07-27] MEDS: PANTOPRAZOLE 40 MG IV IVPush SCH (21:55)
[2019-07-27] MEDS: OXYcodone IR 5MG TABLET PO PRN (21:55)
[2019-07-27] MEDS: PROMETHAZINE 25 MG/ML, 1ML IM PRN (22:33)
[2019-07-28] MEDS: D5%-0.45% NACL 1,000 ML IV SCH (00:30)
[2019-07-28 02:35] VITALS: BP 96/55
[2019-07-28] MEDS: morphine SULFATE 10 MG/ML, 1ML IVPush PRN ×3 (03:27→21:23)
[2019-07-28] MEDS: PROMETHAZINE 25 MG/ML, 1ML IM PRN ×3 (03:49→13:23)
[2019-07-28 04:50] LABS: MEAN CORPUSCULAR HEMOGLOBIN 28.6 pg (27.0-34.8); MEAN CORPUSCULAR HGB CONC 31.9 g/dL (32.4-35.8); MEAN CORPUSCULAR VOLUME 89.8 fL (80-100); MEAN PLATELET VOLUME 8.2 fL (7.4-10.4); PLATELET COUNT 89 x10^3/uL (130-400); RED CELL DISTRIBUTION WIDTH 26.6 % (9.6-15.2)
[2019-07-28 04:57] LABS: CALCIUM 7.2 mg/dL (8.5-10.1); CHLORIDE 114 mmol/L (98-107)
[2019-07-28 05:01] LABS: ALANINE AMINOTRANSFERASE 18 U/L (12-78); ALBUMIN 2.2 g/dL (3.4-5.0); ALKALINE PHOSPHATASE 157 U/L (45-117); ANION GAP 5 mmol/L (5-15); BILIRUBIN,TOTAL 1.8 mg/dL (0.2-1.0); CREATININE 0.42 mg/dL (0.55-1.02); TOTAL PROTEIN 6.4 g/dL (6.4-8.2)
[2019-07-28 05:50] LABS: MD YES
[2019-07-28 05:51] LABS: EOS#(MANUAL) 0.04 x10^3/uL (0.0-0.4); EOS% (MANUAL) 1 % (1-7); LYMPH#(MANUAL) 1.44 x10^3/uL (1-3.4); LYMPHS% (MANUAL) 36 % (22-44); MONOS#(MANUAL) 0.28 x10^3/uL (0.3-2.7); MONOS% (MANUAL) 7 % (2-9); SEG#(MANUAL) 2.24 x10^3/uL (1.8-6.8); SEGS% (MANUAL) 56 % (42-75)
[2019-07-28 05:52] LABS: ACANTHOCYTES 1+; ANISOCYTOSIS 1+; ECHINOCYTES 1+; HYPOCHROMIA 1+; MICROCYTOSIS 1+
[2019-07-28 05:53] LABS: SCHISTOCYTES 1+; TARGET CELLS 1+
[2019-07-28 05:54] LABS: <PLATELET ESTIMATE> DECREASED; <PLT MORPHOLOGY> NORMAL PLT MORPH; POLYCHROMASIA 1+
[2019-07-28] MEDS: SUCRALFATE 1 GM/10 ML UDC PO SCH ×4 (07:13→20:34)
[2019-07-28] MEDS: LACTULOSE 10 GM/15 ML UDC PO SCH ×3 (08:37→20:34)
[2019-07-28] MEDS: PANTOPRAZOLE 40 MG IV IVPush SCH ×2 (08:40→20:34)
[2019-07-28] MEDS: MAGNESIUM OXIDE 400 MG TABLET PO SCH (08:40)
[2019-07-28] MEDS: OXYcodone IR 5MG TABLET PO PRN ×3 (08:40→19:11)
[2019-07-28 08:55] VITALS: BP 113/68
[2019-07-28 14:28] VITALS: BP 125/69
[2019-07-28] MEDS: METOCLOPRAMIDE 5 MG/ML, 2ML IVPush PRN (19:10)
[2019-07-28 21:17] VITALS: BP 118/70
[2019-07-29] MEDS: OXYcodone IR 5MG TABLET PO PRN ×5 (00:17→20:44)
[2019-07-29] MEDS: morphine SULFATE 10 MG/ML, 1ML IVPush PRN ×2 (02:07→06:37)
[2019-07-29 02:23] VITALS: BP 115/67
[2019-07-29 04:41] LABS: ANION GAP 6 mmol/L (5-15); CHLORIDE 105 mmol/L (98-107)
[2019-07-29] MEDS: METOCLOPRAMIDE 5 MG/ML, 2ML IVPush PRN (04:42)
[2019-07-29 04:45] LABS: ALANINE AMINOTRANSFERASE 21 U/L (12-78); ALKALINE PHOSPHATASE 158 U/L (45-117); CREATININE 0.52 mg/dL (0.55-1.02); TOTAL PROTEIN 5.9 g/dL (6.4-8.2)
[2019-07-29 05:45] LABS: BASOPHILS # (AUTO) 0.01 x10^3/uL (0-0.1); BASOPHILS % (AUTO) 0 % (0-1); EOSINOPHILS # (AUTO) 0.14 x10^3/uL (0-0.4); EOSINOPHILS % (AUTO) 4 % (1-7); LYMPHOCYTES # (AUTO) 1.26 x10^3/uL (1-3.4); LYMPHOCYTES % (AUTO) 34 % (22-44); MD SCAN; MEAN CORPUSCULAR HEMOGLOBIN 29.1 pg (27.0-34.8); MEAN CORPUSCULAR HGB CONC 32.2 g/dL (32.4-35.8); MEAN CORPUSCULAR VOLUME 90.4 fL (80-100); MEAN PLATELET VOLUME 8.3 fL (7.4-10.4); MONOCYTES # (AUTO) 0.46 x10^3/uL (0.2-0.8); MONOCYTES % (AUTO) 13 % (2-9); NEUTROPHILS % (AUTO) 49 % (42-75); PLATELET COUNT 79 x10^3/uL (130-400); RED BLOOD COUNT 2.61 x10^6/uL (3.82-5.3); RED CELL DISTRIBUTION WIDTH 26.2 % (9.6-15.2)
[2019-07-29] MEDS: SUCRALFATE 1 GM/10 ML UDC PO SCH ×4 (06:37→20:44)
[2019-07-29 07:44] VITALS: BP 128/75
[2019-07-29] MEDS: LACTULOSE 10 GM/15 ML UDC PO SCH ×3 (08:44→20:44)
[2019-07-29] MEDS: PANTOPRAZOLE 40 MG IV IVPush SCH ×2 (08:44→20:44)
[2019-07-29] MEDS: MAGNESIUM OXIDE 400 MG TABLET PO SCH (08:45)
[2019-07-29] MEDS: DIPHENHYDRAMINE 25 MG CAPSULE PO PRN ×2 (10:11→22:14)
[2019-07-29 15:29] VITALS: BP 119/69
[2019-07-29 19:42] VITALS: BP 122/73
[2019-07-30 01:33] VITALS: BP 119/69
[2019-07-30] MEDS: OXYcodone IR 5MG TABLET PO PRN ×3 (02:40→20:44)
[2019-07-30] MEDS: DIPHENHYDRAMINE 25 MG CAPSULE PO PRN ×3 (04:49→22:09)
[2019-07-30 05:30] LABS: ALBUMIN 2.1 g/dL (3.4-5.0); ANION GAP 6 mmol/L (5-15); CALCIUM 7.9 mg/dL (8.5-10.1); CHLORIDE 106 mmol/L (98-107)
[2019-07-30 05:36] LABS: ALANINE AMINOTRANSFERASE 15 U/L (12-78); ALKALINE PHOSPHATASE 155 U/L (45-117); BILIRUBIN,TOTAL 3.9 mg/dL (0.2-1.0)
[2019-07-30 05:41] LABS: MEAN CORPUSCULAR HEMOGLOBIN 29.1 pg (27.0-34.8); MEAN CORPUSCULAR HGB CONC 32.4 g/dL (32.4-35.8); MEAN CORPUSCULAR VOLUME 89.7 fL (80-100); MEAN PLATELET VOLUME 8.3 fL (7.4-10.4); PLATELET COUNT 80 x10^3/uL (130-400); RED BLOOD COUNT 2.61 x10^6/uL (3.82-5.3); RED CELL DISTRIBUTION WIDTH 24.7 % (9.6-15.2)
[2019-07-30 06:28] LABS: MD YES
[2019-07-30 06:38] LABS: BAND#(MANUAL) 0.03 x10^3/uL; BANDS%(MANUAL) 1 % (0-7); BASOS#(MANUAL) 0.06 x10^3/uL (0-0.1); BASOS% (MANUAL) 2 % (0-1); EOS#(MANUAL) 0.03 x10^3/uL (0.0-0.4); EOS% (MANUAL) 1 % (1-7); LYMPHS% (MANUAL) 25 % (22-44); MONOS#(MANUAL) 0.16 x10^3/uL (0.3-2.7); MONOS% (MANUAL) 5 % (2-9); SEG#(MANUAL) 2.11 x10^3/uL (1.8-6.8); SEGS% (MANUAL) 66 % (42-75)
[2019-07-30 06:39] LABS: ACANTHOCYTES 1+; ANISOCYTOSIS 1+; ECHINOCYTES 1+; HYPOCHROMIA 1+; MICROCYTOSIS 1+; POLYCHROMASIA 1+; TARGET CELLS 1+
[2019-07-30 06:41] LABS: <PLATELET ESTIMATE> DECREASED; <PLT MORPHOLOGY> NORMAL PLT MORPH
[2019-07-30] MEDS: SUCRALFATE 1 GM/10 ML UDC PO SCH ×4 (07:00→20:44)
[2019-07-30 08:01] VITALS: BP 121/75
[2019-07-30] MEDS: LACTULOSE 10 GM/15 ML UDC PO SCH ×3 (09:00→20:44)
[2019-07-30] MEDS: MAGNESIUM OXIDE 400 MG TABLET PO SCH (09:00)
[2019-07-30] MEDS ORDERED: DIPHENHYDRAMINE 50 MG/ML, 1ML IVPush ONE (10:00)
[2019-07-30] MEDS ORDERED: MORPHINE SULFATE 4 MG/ML, 1ML IVPush PRN ×2 (10:00→12:30)
[2019-07-30] MEDS: PANTOPRAZOLE 40 MG IV IVPush SCH ×2 (10:11→20:44)
[2019-07-30] MEDS ORDERED: PROPOFOL 10 MG/ML, 50ML ONE (11:30)
[2019-07-30 11:38] LABS: HCG UR SG 1.009 (1.003-1.030)
[2019-07-30] MEDS ORDERED: DIPHENHYDRAMINE 50 MG/ML, 1ML ONE (12:06)
[2019-07-30] MEDS ORDERED: MORPHINE SULFATE 4 MG/ML, 1ML ONE (12:06)
[2019-07-30] MEDS ORDERED: METOCLOPRAMIDE 5 MG/ML, 2ML ONE (12:07)
[2019-07-30] MEDS ORDERED: METOCLOPRAMIDE 5 MG/ML, 2ML IVPush ONE (12:30)
[2019-07-30] MEDS ORDERED: DIPHENHYDRAMINE 50 MG/ML, 1ML IVPush PRN (12:30)
[2019-07-30 13:51] VITALS: BP 103/65
[2019-07-30 15:09] LABS: INTERNATIONAL NORMALIZED RATIO 2.41 (0.93-1.1); PROTHROMBIN TIME 25.8 Seconds (9.6-11.5)
[2019-07-30 19:48] VITALS: BP 103/64
[2019-07-31 01:46] VITALS: BP 119/71
[2019-07-31] MEDS: OXYcodone IR 5MG TABLET PO PRN ×4 (01:49→20:39)
[2019-07-31] MEDS: DIPHENHYDRAMINE 25 MG CAPSULE PO PRN ×3 (04:02→18:11)
[2019-07-31 05:56] LABS: CHLORIDE 104 mmol/L (98-107)
[2019-07-31 06:04] LABS: ALANINE AMINOTRANSFERASE 14 U/L (12-78); ALKALINE PHOSPHATASE 151 U/L (45-117); ANION GAP 7 mmol/L (5-15); CALCIUM 7.9 mg/dL (8.5-10.1); CREATININE 0.39 mg/dL (0.55-1.02); TOTAL PROTEIN 5.9 g/dL (6.4-8.2)
[2019-07-31 06:58] LABS: MEAN CORPUSCULAR HEMOGLOBIN 28.7 pg (27.0-34.8); MEAN CORPUSCULAR VOLUME 89.7 fL (80-100); MEAN PLATELET VOLUME 8.6 fL (7.4-10.4); PLATELET COUNT 84 x10^3/uL (130-400); RED BLOOD COUNT 2.49 x10^6/uL (3.82-5.3); RED CELL DISTRIBUTION WIDTH 25.3 % (9.6-15.2)
[2019-07-31 07:00] LABS: BASOPHILS # (AUTO) 0.02 x10^3/uL (0-0.1); BASOPHILS % (AUTO) 1 % (0-1); EOSINOPHILS # (AUTO) 0.11 x10^3/uL (0-0.4); EOSINOPHILS % (AUTO) 4 % (1-7); LYMPHOCYTES # (AUTO) 1.15 x10^3/uL (1-3.4); LYMPHOCYTES % (AUTO) 35 % (22-44); MD SCAN; MONOCYTES # (AUTO) 0.32 x10^3/uL (0.2-0.8); MONOCYTES % (AUTO) 10 % (2-9); NEUTROPHILS # (AUTO) 1.66 x10^3/uL (1.8-6.8); NEUTROPHILS % (AUTO) 51 % (42-75)
[2019-07-31] MEDS: SUCRALFATE 1 GM/10 ML UDC PO SCH ×4 (07:48→20:39)
[2019-07-31] MEDS: LACTULOSE 10 GM/15 ML UDC PO SCH ×3 (07:49→20:39)
[2019-07-31] MEDS: PANTOPRAZOLE 40 MG IV IVPush SCH ×2 (07:49→20:38)
[2019-07-31 08:47] VITALS: BP 116/69
[2019-07-31] MEDS ORDERED: DIPHENHYDRAMINE 25 MG CAPSULE PO PRN (10:00)
[2019-07-31 14:03] LABS: MEAN CORPUSCULAR HEMOGLOBIN 28.7 pg (27.0-34.8); MEAN CORPUSCULAR HGB CONC 31.9 g/dL (32.4-35.8); MEAN CORPUSCULAR VOLUME 89.9 fL (80-100); MEAN PLATELET VOLUME 8.4 fL (7.4-10.4); PLATELET COUNT 82 x10^3/uL (130-400); RED BLOOD COUNT 2.51 x10^6/uL (3.82-5.3); RED CELL DISTRIBUTION WIDTH 25.3 % (9.6-15.2)
[2019-07-31 14:26] LABS: MD YES
[2019-07-31 14:29] LABS: ANISOCYTOSIS 1+; BASOS#(MANUAL) 0.03 x10^3/uL (0-0.1); BASOS% (MANUAL) 1 % (0-1); EOS#(MANUAL) 0.08 x10^3/uL (0.0-0.4); EOS% (MANUAL) 3 % (1-7); HYPOCHROMIA 1+; LYMPH#(MANUAL) 0.78 x10^3/uL (1-3.4); LYMPHS% (MANUAL) 31 % (22-44); MONOS% (MANUAL) 4 % (2-9); SEG#(MANUAL) 1.53 x10^3/uL (1.8-6.8); SEGS% (MANUAL) 61 % (42-75)
[2019-07-31 14:30] LABS: <PLATELET ESTIMATE> DECREASED; <PLT MORPHOLOGY> NORMAL PLT MORPH; ACANTHOCYTES 1+; OVALOCYTES 1+; TARGET CELLS 1+
[2019-07-31 16:34] VITALS: BP 107/69
[2019-07-31 20:14] VITALS: BP 130/79
[2019-08-01] VITALS (8 sets, daily range): BP systolic 106–128; BP diastolic 62–78
[2019-08-01] MEDS: DIPHENHYDRAMINE 25 MG CAPSULE PO PRN ×3 (01:34→14:20)
[2019-08-01] MEDS: OXYcodone IR 5MG TABLET PO PRN ×4 (01:34→19:23)
[2019-08-01 05:45] LABS: ALANINE AMINOTRANSFERASE 13 U/L (12-78); ANION GAP 7 mmol/L (5-15); CALCIUM 7.2 mg/dL (8.5-10.1); CHLORIDE 104 mmol/L (98-107); CREATININE 0.49 mg/dL (0.55-1.02)
[2019-08-01 05:47] LABS: ALKALINE PHOSPHATASE 160 U/L (45-117); BILIRUBIN,TOTAL 1.9 mg/dL (0.2-1.0); TOTAL PROTEIN 5.7 g/dL (6.4-8.2)
[2019-08-01 06:20] LABS: MEAN CORPUSCULAR HEMOGLOBIN 28.9 pg (27.0-34.8); MEAN CORPUSCULAR HGB CONC 32.4 g/dL (32.4-35.8); MEAN CORPUSCULAR VOLUME 89.3 fL (80-100); RED BLOOD COUNT 2.39 x10^6/uL (3.82-5.3); RED CELL DISTRIBUTION WIDTH 25.2 % (9.6-15.2)
[2019-08-01 07:15] LABS: MD YES
[2019-08-01 07:19] LABS: BAND#(MANUAL) 0.06 x10^3/uL; BANDS%(MANUAL) 2 % (0-7); BASOS#(MANUAL) 0.03 x10^3/uL (0-0.1); BASOS% (MANUAL) 1 % (0-1); EOS#(MANUAL) 0.12 x10^3/uL (0.0-0.4); EOS% (MANUAL) 4 % (1-7); LYMPH#(MANUAL) 0.99 x10^3/uL (1-3.4); LYMPHS% (MANUAL) 32 % (22-44); MONOS#(MANUAL) 0.19 x10^3/uL (0.3-2.7); MONOS% (MANUAL) 6 % (2-9); SEG#(MANUAL) 1.71 x10^3/uL (1.8-6.8); SEGS% (MANUAL) 55 % (42-75)
[2019-08-01 07:28] LABS: MEAN PLATELET VOLUME 8.3 fL (7.4-10.4); PLATELET COUNT 82 x10^3/uL (130-400)
[2019-08-01 07:29] LABS: ANISOCYTOSIS 1+
[2019-08-01 07:30] LABS: <PLATELET ESTIMATE> DECREASED; <PLT MORPHOLOGY> NORMAL PLT MORPH; ECHINOCYTES 1+; HYPOCHROMIA 1+; OVALOCYTES 1+; TARGET CELLS 1+
[2019-08-01 07:31] LABS: ACANTHOCYTES 1+
[2019-08-01] MEDS: SUCRALFATE 1 GM/10 ML UDC PO SCH ×4 (07:42→21:14)
[2019-08-01] MEDS: LACTULOSE 10 GM/15 ML UDC PO SCH ×3 (10:53→21:14)
[2019-08-01] MEDS: PANTOPRAZOLE 40 MG IV IVPush SCH ×2 (10:54→21:14)
[2019-08-01] MEDS ORDERED: DIPHENHYDRAMINE 25 MG CAPSULE PO ONE (14:30)
[2019-08-02] MEDS: DIPHENHYDRAMINE 25 MG CAPSULE PO PRN ×2 (00:02→06:53)
[2019-08-02 02:37] VITALS: BP 105/63
[2019-08-02] MEDS: OXYcodone IR 5MG TABLET PO PRN ×2 (02:46→10:41)
[2019-08-02 03:17] LABS: MEAN CORPUSCULAR HGB CONC 32.7 g/dL (32.4-35.8); MEAN CORPUSCULAR VOLUME 88.8 fL (80-100); RED BLOOD COUNT 2.77 x10^6/uL (3.82-5.3); RED CELL DISTRIBUTION WIDTH 24.2 % (9.6-15.2)
[2019-08-02 03:38] LABS: MEAN PLATELET VOLUME 8.5 fL (7.4-10.4); PLATELET COUNT 82 x10^3/uL (130-400)
[2019-08-02 03:39] LABS: MD YES
[2019-08-02 03:45] LABS: ANISOCYTOSIS 1+; BAND#(MANUAL) 0.03 x10^3/uL; BANDS%(MANUAL) 1 % (0-7); HYPOCHROMIA 1+; LYMPH#(MANUAL) 1.02 x10^3/uL (1-3.4); LYMPHS% (MANUAL) 33 % (22-44); METAMYELOCYTES# (MANUAL) 0.06 x10^3/uL (0-0); METAMYELOCYTES% (MANUAL) 2 % (0-1); MONOS#(MANUAL) 0.12 x10^3/uL (0.3-2.7); MONOS% (MANUAL) 4 % (2-9); SEG#(MANUAL) 1.86 x10^3/uL (1.8-6.8); SEGS% (MANUAL) 60 % (42-75)
[2019-08-02 03:46] LABS: <PLATELET ESTIMATE> DECREASED; <PLT MORPHOLOGY> NORMAL PLT MORPH; ACANTHOCYTES 1+; ECHINOCYTES 1+; OVALOCYTES 1+; TARGET CELLS 1+
[2019-08-02] MEDS: LACTULOSE 10 GM/15 ML UDC PO SCH (08:11)
[2019-08-02] MEDS: SUCRALFATE 1 GM/10 ML UDC PO SCH ×2 (08:11→10:40)
[2019-08-02 08:56] VITALS: BP 112/71
[2019-08-02] MEDS ORDERED: PANTOPROZOLE 40MG TABLET PO SCH (09:00)
[2019-08-02] MEDS ORDERED: SUCR1ORA5 PO (11:32)
[2019-08-02] MEDS ORDERED: PANT40TA5 PO (11:32)
== END 2019-08-02 13:43 | disposition home or self-care (01) | DRG 381 ==
LOC: ED 16:34 → EDIP 19:52 → 3N 21:10 → DCLOUNGE 08-02 13:31
PROVIDERS: ADMIT Internal Medicine; ATTEND Internal Medicine
PROC: 0DB68ZX Excision of Stomach, Via Natural or Artificial Opening Endoscopic, Diagnostic (ICD-10-PCS; principal; 2019-07-30 11:30)
PROC: 30233N1 Transfusion of Nonautologous Red Blood Cells into Peripheral Vein, Percutaneous Approach (ICD-10-PCS; 2019-08-01)
DX: K28.9 Gastrojejunal ulcer, unspecified as acute or chronic, without hemorrhage or perforation (principal); E87.0 Hyperosmolality and hypernatremia; D62 Acute posthemorrhagic anemia; D61.818 Other pancytopenia; K76.6 Portal hypertension; K70.31 Alcoholic cirrhosis of liver with ascites; K29.70 Gastritis, unspecified, without bleeding; G89.29 Other chronic pain; F10.10 Alcohol abuse, uncomplicated; E88.09 Other disorders of plasma-protein metabolism, not elsewhere classified; Z98.84 Bariatric surgery status; Z90.49 Acquired absence of other specified parts of digestive tract; Z91.041 Radiographic dye allergy status; Z88.0 Allergy status to penicillin; Z88.6 Allergy status to analgesic agent; Z88.8 Allergy status to other drugs, medicaments and biological substances; Z71.41 Alcohol abuse counseling and surveillance of alcoholic
CPT/HCPCS: 36415; 71045; 74018; 76705; 80053; 81003; 81025; 82140; 82728; 83540; 83550; 83690; 83735; 84484; 85025; 85610; 86850; 86900; 86923; 88305; 88342; 93005; 96372; 96374; 99285; G0378; J2550; J2704; C9113; J1200; J2270; J2765; P9016; Q0163

== ENCOUNTER 2019-08-11 23:32 | Emergency (ER) | payer BC, OTHER ==
[~2019-08-11] VITALS: Ht 160 cm; Wt 57.1 kg
[~2019-08-11 23:32] MED LIST changes: +PANT40TA5 PO; +SUCR1ORA5 PO
[2019-08-12] MEDS ORDERED: ONDANSETRON 2MG/ML, 2ML IVPush ONE (00:30)
[2019-08-12] MEDS ORDERED: PROMETHAZINE 25 MG/ML, 1ML IM ONE (00:30)
[2019-08-12] MEDS ORDERED: SODIUM CHLORIDE 0.9% 1,000ML IVBOLUS ONE (00:30)
[2019-08-12] MEDS ORDERED: SODIUM CHLORIDE FLUSH 10ML SYR IVF ONE (00:30)
[2019-08-12] MEDS ORDERED: MORPHINE SULFATE 4 MG/ML, 1ML IVPush PRN (00:30)
[2019-08-12 00:41] LABS: MEAN CORPUSCULAR HEMOGLOBIN 29.3 pg (27.0-34.8); MEAN CORPUSCULAR HGB CONC 32.4 g/dL (32.4-35.8); MEAN CORPUSCULAR VOLUME 90.4 fL (80-100); RED BLOOD COUNT 3.57 x10^6/uL (3.82-5.3); RED CELL DISTRIBUTION WIDTH 26.2 % (9.6-15.2)
[2019-08-12] MEDS ORDERED: MORPHINE SULFATE 4 MG/ML, 1ML ONE (01:02)
[2019-08-12] MEDS ORDERED: PROMETHAZINE 25 MG/ML, 1ML ONE (01:02)
[2019-08-12] MEDS ORDERED: ONDANSETRON 2MG/ML, 2ML ONE (01:02)
[2019-08-12 01:06] LABS: MD YES; PLATELET COUNT 121 x10^3/uL (130-400)
[2019-08-12 01:09] LABS: LYMPH#(MANUAL) 2.95 x10^3/uL (1-3.4); LYMPHS% (MANUAL) 50 % (22-44); MONOS#(MANUAL) 0.06 x10^3/uL (0.3-2.7); MONOS% (MANUAL) 1 % (2-9); SEG#(MANUAL) 2.89 x10^3/uL (1.8-6.8); SEGS% (MANUAL) 49 % (42-75)
[2019-08-12 01:10] LABS: ANISOCYTOSIS 1+
[2019-08-12 01:11] LABS: <PLATELET ESTIMATE> DECREASED; <PLT MORPHOLOGY> NORMAL PLT MORPH
[2019-08-12 01:19] LABS: ALANINE AMINOTRANSFERASE 27 U/L (12-78); ALBUMIN 2.4 g/dL (3.4-5.0); ANION GAP 8 mmol/L (5-15); CALCIUM 7.7 mg/dL (8.5-10.1); CHLORIDE 112 mmol/L (98-107); CREATININE 0.47 mg/dL (0.55-1.02)
--- NOTE | 2019-08-12 01:19 | NUR ---
Rn to bedside, patient assessed and orders placed by provider. RN to bedside with peripheral venous access supplies. Patient states prefers to have her port-o-cath accessed. RN returned with supplies. Port accessed per hospital protocol under sterile conditions, line draws and flushes. Rubber Goods Repairer returned to bedside to redraw patient due to hemalyzation of previous draw. RN pamela from central line and center mgr transferred from syringe into laboratory tubes. Patient attached to blood pressure cuff and pulsatile oxygen sensor. Vital signs are stable and improved from triage (see vital signs flowsheet.) RN then returned with medications ordered. Patient agreeable to analgesic and antiemetic IM shot, declines Zofran due to reported history of tachycardia. RN reviewed final order for urinalysis. Patient declines being able to provide at the moment. Reviewed clean catch technique and detached from monitor, informed patient where the patient bathroom is. Encouraged the patient to obtain sample as soon as possible. Patient states she is agreeable. Awaiting lab results and urinalysis.
[2019-08-12 01:20] LABS: ALKALINE PHOSPHATASE 256 U/L (45-117); BILIRUBIN,TOTAL 2.3 mg/dL (0.2-1.0); TOTAL PROTEIN 7.8 g/dL (6.4-8.2)
[2019-08-12 02:31] LABS: MICROSCOPIC INDICATED
[2019-08-12 02:39] LABS: CULTURE INDICATED? NO
[2019-08-12 02:40] VITALS: BP 126/77
== END 2019-08-12 03:14 | disposition home or self-care (01) ==
LOC: MERGE 08-12 01:30 → ED 08-12 01:30
DX: R10.84 Generalized abdominal pain (principal); R11.2 Nausea with vomiting, unspecified; R19.7 Diarrhea, unspecified
CPT/HCPCS: 36415; 80053; 81001; 83690; 84703; 85025; 96372; 96374; 99283; J2270; J2550

== ENCOUNTER 2019-08-20 07:27 | Inpatient (IN) | payer OTHER ==
[~2019-08-20] VITALS: Ht 160 cm; Wt 60.8 kg
[2019-08-20] MEDS ORDERED: PANTOPRAZOLE 80 MG in SODIUM CHLORIDE 0.9% 50 ML IVPB ONE (07:49)
[2019-08-20] MEDS ORDERED: PANTOPRAZOLE 80 MG in SODIUM CHLORIDE 0.9% 100 ML IV SCH (07:49)
[2019-08-20] MEDS ORDERED: SODIUM CHLORIDE 0.9% 1,000ML IVBOLUS ONE (08:00)
[2019-08-20] MEDS ORDERED: METOCLOPRAMIDE 5 MG/ML, 2ML IVPush ONE (08:00)
[2019-08-20] MEDS ORDERED: SODIUM CHLORIDE FLUSH 10ML SYR IVF ONE (08:00)
[2019-08-20] MEDS ORDERED: MORPHINE SULFATE 4 MG/ML, 1ML ONE (08:41)
[2019-08-20] MEDS ORDERED: METOCLOPRAMIDE 5 MG/ML, 2ML ONE (08:41)
[2019-08-20] MEDS: MORPHINE SULFATE 4 MG/ML, 1ML IVPush PRN ×2 (08:44→11:50)
[2019-08-20 08:50] LABS: INTERNATIONAL NORMALIZED RATIO 1.8 (0.93-1.1); PROTHROMBIN TIME 19.2 Seconds (9.6-11.5)
[2019-08-20 08:52] LABS: ALANINE AMINOTRANSFERASE 20 U/L (12-78); ALBUMIN 2.1 g/dL (3.4-5.0); ANION GAP 6 mmol/L (5-15); CALCIUM 7.2 mg/dL (8.5-10.1); CHLORIDE 115 mmol/L (98-107); CREATININE 0.58 mg/dL (0.55-1.02)
[2019-08-20 08:59] LABS: ALKALINE PHOSPHATASE 241 U/L (45-117); BILIRUBIN,TOTAL 2.3 mg/dL (0.2-1.0); TOTAL PROTEIN 7.3 g/dL (6.4-8.2); TROPONIN I < 0.015 ng/mL (0.000-0.045)
[2019-08-20 09:03] LABS: MEAN CORPUSCULAR HEMOGLOBIN 30.6 pg (27.0-34.8); MEAN CORPUSCULAR HGB CONC 33.1 g/dL (32.4-35.8); MEAN CORPUSCULAR VOLUME 92.6 fL (80-100); MEAN PLATELET VOLUME 9.2 fL (7.4-10.4); PLATELET COUNT 63 x10^3/uL (130-400); RED BLOOD COUNT 2.89 x10^6/uL (3.82-5.3); RED CELL DISTRIBUTION WIDTH 28.2 % (9.6-15.2)
[2019-08-20 09:09] LABS: MD YES
[2019-08-20 09:12] LABS: EOS#(MANUAL) 0.17 x10^3/uL (0.0-0.4); EOS% (MANUAL) 3 % (1-7); LYMPH#(MANUAL) 2.09 x10^3/uL (1-3.4); LYMPHS% (MANUAL) 36 % (22-44); MONOS#(MANUAL) 0.46 x10^3/uL (0.3-2.7); MONOS% (MANUAL) 8 % (2-9); SEG#(MANUAL) 3.07 x10^3/uL (1.8-6.8); SEGS% (MANUAL) 53 % (42-75)
[2019-08-20 09:13] LABS: ACANTHOCYTES 1+; ANISOCYTOSIS 1+; ECHINOCYTES 1+; OVALOCYTES 1+
[2019-08-20 09:14] LABS: TARGET CELLS 1+
[2019-08-20 09:15] LABS: <PLATELET ESTIMATE> DECREASED; <PLT MORPHOLOGY> NORMAL PLT MORPH
--- NOTE | 2019-08-20 09:41 | NUR ---
resting with eyes closed. no vomiting since arrival, some improvement in abdominal pain since medicated for same. bolus infusing and protonix drip as noted on MAR
--- NOTE | 2019-08-20 10:02 | NUR ---
HOSPITALIST AT BEDSIDE
[2019-08-20] MEDS ORDERED: LORazepam 2 MG/ML, 1ML IV PRN ×2 (10:30)
[2019-08-20] MEDS ORDERED: LORazepam 1MG TABLET PO PRN ×2 (10:30)
[2019-08-20] MEDS ORDERED: POTASSIUM CHLORIDE 20 MEQ, MAGNESIUM SULFATE 1 GM, FOLIC ACID 1 MG, THIAMINE 200 MG, MV... IV SCH (10:30)
[2019-08-20] MEDS ORDERED: LORazepam 0.5MG TABLET PO PRN (10:30)
[2019-08-20] MEDS ORDERED: THIAMINE 200 MG in SODIUM CHLORIDE 0.9% 50 ML IV ONE (10:30)
[2019-08-20] MEDS ORDERED: FOLIC ACID 5 MG/ML IM ONE (10:30)
--- NOTE | 2019-08-20 11:05 | NUR ---
REPORT TO SHAWN SONG. PT TO BE TRANSFERRED TO THE FLOOR
[2019-08-20 11:29] VITALS: BP 111/71
[2019-08-20 11:48] LABS: TROPONIN I < 0.015 ng/mL (0.000-0.045)
[2019-08-20] MEDS: POTASSIUM CHLORIDE 20 MEQ TAB.ER.PRT PO SCH (12:01)
[2019-08-20] MEDS: SUCRALFATE 1 GM/10 ML UDC PO SCH ×3 (12:01→20:38)
[2019-08-20] MEDS: PANTOPRAZOLE 40 MG IV IVPush SCH ×2 (12:01→20:38)
[2019-08-20 14:02] VITALS: BP 106/69
[2019-08-20] MEDS: LACTULOSE 10 GM/15 ML UDC PO SCH ×2 (16:59→20:38)
[2019-08-20 19:17] LABS: TROPONIN I < 0.015 ng/mL (0.000-0.045)
[2019-08-20 19:40] VITALS: BP 100/65
[2019-08-20 21:17] LABS: CULTURE INDICATED? YES; MICROSCOPIC INDICATED
[2019-08-21] VITALS (9 sets, daily range): BP systolic 87–109; BP diastolic 52–72
[2019-08-21] MEDS: LORazepam 2 MG/ML, 1ML IV PRN ×4 (05:51→21:03)
[2019-08-21 06:14] LABS: ALANINE AMINOTRANSFERASE 17 U/L (12-78); ALBUMIN 1.7 g/dL (3.4-5.0); ANION GAP 4 mmol/L (5-15); CALCIUM 6.7 mg/dL (8.5-10.1); CHLORIDE 115 mmol/L (98-107); CREATININE 0.42 mg/dL (0.55-1.02)
[2019-08-21 06:25] LABS: ALKALINE PHOSPHATASE 173 U/L (45-117); BILIRUBIN,TOTAL 2.3 mg/dL (0.2-1.0); TOTAL PROTEIN 5.8 g/dL (6.4-8.2)
[2019-08-21 06:28] LABS: MEAN CORPUSCULAR HEMOGLOBIN 31.2 pg (27.0-34.8); MEAN CORPUSCULAR HGB CONC 33.3 g/dL (32.4-35.8); MEAN CORPUSCULAR VOLUME 93.7 fL (80-100); RED BLOOD COUNT 2.24 x10^6/uL (3.82-5.3); RED CELL DISTRIBUTION WIDTH 28.1 % (9.6-15.2)
[2019-08-21 06:50] LABS: MEAN PLATELET VOLUME 8.5 fL (7.4-10.4)
[2019-08-21 06:52] LABS: PLATELET COUNT 42 x10^3/uL (130-400)
[2019-08-21 07:12] LABS: MD YES
[2019-08-21 07:17] LABS: BAND#(MANUAL) 0.02 x10^3/uL; BANDS%(MANUAL) 1 % (0-7); EOS#(MANUAL) 0.06 x10^3/uL (0.0-0.4); EOS% (MANUAL) 3 % (1-7); LYMPH#(MANUAL) 0.98 x10^3/uL (1-3.4); LYMPHS% (MANUAL) 49 % (22-44); MONOS% (MANUAL) 5 % (2-9); SEG#(MANUAL) 0.84 x10^3/uL (1.8-6.8); SEGS% (MANUAL) 42 % (42-75)
[2019-08-21 07:18] LABS: ANISOCYTOSIS 2+; OVALOCYTES 1+
[2019-08-21 07:19] LABS: HYPOCHROMIA 2+; SCHISTOCYTES 1+; TARGET CELLS 1+
[2019-08-21 07:20] LABS: <PLATELET ESTIMATE> DECREASED; <PLT MORPHOLOGY> NORMAL PLT MORPH
[2019-08-21] MEDS ORDERED: MAGNESIUM SULFATE PMX 4GM/100M 100 ML IV ONE (07:30)
[2019-08-21] MEDS ORDERED: POTASSIUM PHOSPHATE 22 MEQ in SODIUM CHLORIDE 0.9% 500 ML IV ONE (07:30)
[2019-08-21] MEDS: POTASSIUM CHLORIDE 20 MEQ TAB.ER.PRT PO SCH (08:44)
[2019-08-21] MEDS: PANTOPRAZOLE 40 MG IV IVPush SCH ×2 (08:44→20:44)
[2019-08-21] MEDS: FUROSEMIDE 20 MG TABLET PO SCH ×2 (08:44→20:44)
[2019-08-21] MEDS: LACTULOSE 10 GM/15 ML UDC PO SCH ×3 (08:44→20:43)
[2019-08-21] MEDS: SPIRONOLACTONE 25 MG TABLET PO SCH (08:44)
[2019-08-21] MEDS: SUCRALFATE 1 GM/10 ML UDC PO SCH ×4 (08:55→20:44)
[2019-08-21] MEDS ORDERED: FUROSEMIDE 20 MG TABLET PO SCH (09:00)
[2019-08-21] MEDS ORDERED: LIDOCAINE 1%, 10ML ONE (09:46)
[2019-08-21 11:10] LABS: CELLS COUNTED 42
[2019-08-21] MEDS: OXYcodone IR 5MG TABLET PO PRN ×4 (11:17→21:04)
[2019-08-21] MEDS: METOCLOPRAMIDE 5 MG/ML, 2ML IVPush PRN ×2 (11:18→22:50)
[2019-08-21] MEDS: CEFTRIAXONE PMX 2GM/50ML 50 ML IV SCH (17:08)
[2019-08-21] MEDS: METRONIDAZOLE PMX 500MG/100ML 100 ML IV SCH (17:50)
[2019-08-21] MEDS: MAGNESIUM OXIDE 400 MG TABLET PO SCH (20:44)
[2019-08-22] MEDS: LORazepam 2 MG/ML, 1ML IV PRN ×7 (01:04→22:24)
[2019-08-22] MEDS: METRONIDAZOLE PMX 500MG/100ML 100 ML IV SCH ×3 (01:09→17:17)
[2019-08-22 02:21] VITALS: BP 104/68
[2019-08-22] MEDS: OXYcodone IR 5MG TABLET PO PRN ×4 (03:15→21:51)
[2019-08-22 05:38] VITALS: BP 102/65
[2019-08-22] MEDS: SUCRALFATE 1 GM/10 ML UDC PO SCH ×4 (06:06→20:16)
[2019-08-22 06:10] LABS: MEAN CORPUSCULAR HEMOGLOBIN 30.9 pg (27.0-34.8); MEAN CORPUSCULAR HGB CONC 33.8 g/dL (32.4-35.8); MEAN CORPUSCULAR VOLUME 91.5 fL (80-100); RED BLOOD COUNT 2.68 x10^6/uL (3.82-5.3); RED CELL DISTRIBUTION WIDTH 27.1 % (9.6-15.2)
[2019-08-22 06:19] LABS: ALBUMIN 1.8 g/dL (3.4-5.0); ANION GAP 5 mmol/L (5-15); CALCIUM 7.2 mg/dL (8.5-10.1); CHLORIDE 104 mmol/L (98-107)
[2019-08-22 06:22] LABS: ALANINE AMINOTRANSFERASE 17 U/L (12-78); ALKALINE PHOSPHATASE 191 U/L (45-117); BILIRUBIN,TOTAL 2.7 mg/dL (0.2-1.0); CREATININE 0.56 mg/dL (0.55-1.02); TOTAL PROTEIN 6.2 g/dL (6.4-8.2)
[2019-08-22 06:32] LABS: MD YES; MEAN PLATELET VOLUME 8.9 fL (7.4-10.4)
[2019-08-22 06:36] LABS: PLATELET COUNT 38 x10^3/uL (130-400)
[2019-08-22 06:39] LABS: BAND#(MANUAL) 0.06 x10^3/uL; BANDS%(MANUAL) 2 % (0-7); LYMPH#(MANUAL) 1.15 x10^3/uL (1-3.4); LYMPHS% (MANUAL) 37 % (22-44); MONOS#(MANUAL) 0.16 x10^3/uL (0.3-2.7); MONOS% (MANUAL) 5 % (2-9); NRBC % (MANUAL) 1 % (0-1); SEG#(MANUAL) 1.74 x10^3/uL (1.8-6.8); SEGS% (MANUAL) 56 % (42-75)
[2019-08-22 06:41] LABS: ANISOCYTOSIS 2+; OVALOCYTES 1+
[2019-08-22 06:42] LABS: <PLATELET ESTIMATE> DECREASED; <PLT MORPHOLOGY> NORMAL PLT MORPH; ECHINOCYTES 1+
[2019-08-22 07:11] VITALS: BP 102/67
[2019-08-22] MEDS: PANTOPRAZOLE 40 MG IV IVPush SCH ×2 (09:29→20:16)
[2019-08-22] MEDS: LACTULOSE 10 GM/15 ML UDC PO SCH ×3 (09:30→20:17)
[2019-08-22] MEDS: POTASSIUM CHLORIDE 20 MEQ TAB.ER.PRT PO SCH (09:30)
[2019-08-22] MEDS: SPIRONOLACTONE 25 MG TABLET PO SCH (09:30)
[2019-08-22] MEDS: MAGNESIUM OXIDE 400 MG TABLET PO SCH ×2 (09:31→20:17)
[2019-08-22] MEDS: FUROSEMIDE 20 MG TABLET PO SCH ×2 (09:31→20:17)
[2019-08-22] MEDS: THIAMINE 100MG TABLET PO SCH (09:31)
[2019-08-22] MEDS: FOLIC ACID 1 MG TABLET PO SCH (09:31)
[2019-08-22] MEDS: METOCLOPRAMIDE 5 MG/ML, 2ML IVPush PRN ×2 (12:42→19:13)
[2019-08-22 13:43] VITALS: BP 102/68
[2019-08-22] MEDS ORDERED: MORPHINE SULFATE 4 MG/ML, 1ML IVPush PRN (17:00)
[2019-08-22] MEDS: CEFTRIAXONE PMX 2GM/50ML 50 ML IV SCH (17:13)
[2019-08-22 19:51] VITALS: BP 107/69
[2019-08-23] MEDS: LORazepam 2 MG/ML, 1ML IV PRN ×4 (00:14→06:35)
[2019-08-23 00:19] VITALS: BP 103/66
[2019-08-23] MEDS: METRONIDAZOLE PMX 500MG/100ML 100 ML IV SCH ×3 (01:18→17:41)
[2019-08-23] MEDS: METOCLOPRAMIDE 5 MG/ML, 2ML IVPush PRN ×3 (01:19→17:08)
[2019-08-23] MEDS: OXYcodone IR 5MG TABLET PO PRN ×4 (04:05→21:16)
[2019-08-23] MEDS: SUCRALFATE 1 GM/10 ML UDC PO SCH ×4 (06:35→21:15)
[2019-08-23 07:51] VITALS: BP 100/64
[2019-08-23] MEDS: THIAMINE 100MG TABLET PO SCH (08:33)
[2019-08-23] MEDS: SPIRONOLACTONE 25 MG TABLET PO SCH (08:33)
[2019-08-23] MEDS: PANTOPRAZOLE 40 MG IV IVPush SCH ×2 (08:33→21:16)
[2019-08-23] MEDS: LACTULOSE 10 GM/15 ML UDC PO SCH ×2 (08:33→17:08)
[2019-08-23] MEDS: FOLIC ACID 1 MG TABLET PO SCH (08:33)
[2019-08-23] MEDS: MAGNESIUM OXIDE 400 MG TABLET PO SCH ×2 (08:33→21:15)
[2019-08-23] MEDS: POTASSIUM CHLORIDE 20 MEQ TAB.ER.PRT PO SCH (08:33)
[2019-08-23] MEDS: FUROSEMIDE 20 MG TABLET PO SCH ×2 (08:34→21:15)
[2019-08-23 14:06] VITALS: BP 105/64
[2019-08-23] MEDS: CEFTRIAXONE PMX 2GM/50ML 50 ML IV SCH (17:08)
[2019-08-23] MEDS ORDERED: MAGNESIUM SULFATE PMX 2GM/50ML 50 ML IV ONE (18:30)
[2019-08-23 19:28] VITALS: BP 101/66
[2019-08-23] MEDS ORDERED: POTASSIUM PHOSPHATE 44 MEQ in SODIUM CHLORIDE 0.9% 500 ML IV ONE (20:30)
[2019-08-23] MEDS: LACTULOSE 20 GM/30 ML UDC PO SCH (21:15)
[2019-08-23] MEDS: PROPRANOLOL 20 MG TABLET PO SCH (21:16)
[2019-08-24 00:01] VITALS: BP 98/62
[2019-08-24] MEDS: OXYcodone IR 5MG TABLET PO PRN ×4 (01:16→17:29)
[2019-08-24] MEDS: METRONIDAZOLE PMX 500MG/100ML 100 ML IV SCH ×3 (01:16→18:15)
[2019-08-24] MEDS: PROPRANOLOL 20 MG TABLET PO SCH ×3 (06:01→22:11)
[2019-08-24] MEDS: SUCRALFATE 1 GM/10 ML UDC PO SCH ×4 (06:01→22:10)
[2019-08-24 06:29] LABS: ALBUMIN 1.8 g/dL (3.4-5.0); ANION GAP 5 mmol/L (5-15); CALCIUM 7.4 mg/dL (8.5-10.1); CHLORIDE 105 mmol/L (98-107)
[2019-08-24 06:33] LABS: ALANINE AMINOTRANSFERASE 15 U/L (12-78); ALKALINE PHOSPHATASE 178 U/L (45-117); BILIRUBIN,TOTAL 2.5 mg/dL (0.2-1.0); TOTAL PROTEIN 6.2 g/dL (6.4-8.2)
[2019-08-24 08:16] LABS: MD YES; MEAN CORPUSCULAR HEMOGLOBIN 30.6 pg (27.0-34.8); MEAN CORPUSCULAR HGB CONC 32.6 g/dL (32.4-35.8); MEAN PLATELET VOLUME 9.3 fL (7.4-10.4); RED BLOOD COUNT 2.94 x10^6/uL (3.82-5.3); RED CELL DISTRIBUTION WIDTH 27.2 % (9.6-15.2)
[2019-08-24 08:20] LABS: ANISOCYTOSIS 2+; HYPOCHROMIA 1+; LYMPH#(MANUAL) 0.64 x10^3/uL (1-3.4); LYMPHS% (MANUAL) 16 % (22-44); MONOS#(MANUAL) 0.16 x10^3/uL (0.3-2.7); MONOS% (MANUAL) 4 % (2-9); OVALOCYTES 1+; SEGS% (MANUAL) 80 % (42-75)
[2019-08-24 08:21] LABS: <PLATELET ESTIMATE> DECREASED
[2019-08-24 08:22] LABS: PLATELET COUNT 47 x10^3/uL (130-400)
[2019-08-24 08:38] VITALS: BP 99/62
[2019-08-24] MEDS: THIAMINE 100MG TABLET PO SCH (09:18)
[2019-08-24] MEDS: FOLIC ACID 1 MG TABLET PO SCH (09:18)
[2019-08-24] MEDS: PANTOPRAZOLE 40 MG IV IVPush SCH ×2 (09:18→22:10)
[2019-08-24] MEDS: POTASSIUM CHLORIDE 20 MEQ TAB.ER.PRT PO SCH (09:18)
[2019-08-24] MEDS: MAGNESIUM OXIDE 400 MG TABLET PO SCH ×2 (09:18→22:10)
[2019-08-24] MEDS: SPIRONOLACTONE 25 MG TABLET PO SCH (09:18)
[2019-08-24] MEDS: LACTULOSE 20 GM/30 ML UDC PO SCH ×3 (09:18→22:10)
[2019-08-24] MEDS: FUROSEMIDE 20 MG TABLET PO SCH ×2 (09:19→22:10)
[2019-08-24 13:48] VITALS: BP 96/60
[2019-08-24] MEDS: CEFTRIAXONE PMX 2GM/50ML 50 ML IV SCH (17:29)
[2019-08-24 19:21] VITALS: BP 97/62
[2019-08-25] MEDS: METRONIDAZOLE PMX 500MG/100ML 100 ML IV SCH ×3 (01:49→18:00)
[2019-08-25] MEDS: OXYcodone IR 5MG TABLET PO PRN ×3 (01:49→14:33)
[2019-08-25 01:59] VITALS: BP 87/54
[2019-08-25 02:00] VITALS: BP 93/59
[2019-08-25 05:36] LABS: ANION GAP 5 mmol/L (5-15); CALCIUM 7.5 mg/dL (8.5-10.1); CHLORIDE 105 mmol/L (98-107); CREATININE 0.74 mg/dL (0.55-1.02)
[2019-08-25] MEDS: PROPRANOLOL 20 MG TABLET PO SCH ×3 (06:01→21:36)
[2019-08-25] MEDS: SUCRALFATE 1 GM/10 ML UDC PO SCH ×4 (06:01→21:35)
[2019-08-25 06:20] LABS: MEAN CORPUSCULAR HEMOGLOBIN 31.1 pg (27.0-34.8); MEAN CORPUSCULAR HGB CONC 33.3 g/dL (32.4-35.8); MEAN CORPUSCULAR VOLUME 93.5 fL (80-100); MEAN PLATELET VOLUME 9.6 fL (7.4-10.4); PLATELET COUNT 61 x10^3/uL (130-400); RED BLOOD COUNT 2.86 x10^6/uL (3.82-5.3); RED CELL DISTRIBUTION WIDTH 27.4 % (9.6-15.2)
[2019-08-25 06:39] LABS: MD YES
[2019-08-25 06:43] LABS: LYMPH#(MANUAL) 1.19 x10^3/uL (1-3.4); LYMPHS% (MANUAL) 33 % (22-44); MONOS#(MANUAL) 0.32 x10^3/uL (0.3-2.7); MONOS% (MANUAL) 9 % (2-9); SEG#(MANUAL) 2.09 x10^3/uL (1.8-6.8); SEGS% (MANUAL) 58 % (42-75)
[2019-08-25 06:44] LABS: ANISOCYTOSIS 2+; SCHISTOCYTES 1+
[2019-08-25 06:45] LABS: OVALOCYTES 1+
[2019-08-25 06:46] LABS: <PLATELET ESTIMATE> DECREASED; <PLT MORPHOLOGY> NORMAL PLT MORPH
[2019-08-25 07:25] VITALS: BP 89/58
[2019-08-25] MEDS ORDERED: POTASSIUM PHOSPHATE 44 MEQ in SODIUM CHLORIDE 0.9% 500 ML IV ONE (08:00)
[2019-08-25] MEDS ORDERED: MAGNESIUM SULFATE 6 GM in SODIUM CHLORIDE 0.9% 150 ML IV ONE (08:00)
[2019-08-25] MEDS: LACTULOSE 20 GM/30 ML UDC PO SCH ×3 (08:20→21:35)
[2019-08-25] MEDS: PANTOPRAZOLE 40 MG IV IVPush SCH ×2 (08:20→21:35)
[2019-08-25] MEDS: SPIRONOLACTONE 25 MG TABLET PO SCH (08:20)
[2019-08-25] MEDS: MAGNESIUM OXIDE 400 MG TABLET PO SCH ×2 (08:21→21:36)
[2019-08-25] MEDS: POTASSIUM CHLORIDE 20 MEQ TAB.ER.PRT PO SCH ×3 (08:21→10:00)
[2019-08-25] MEDS: FOLIC ACID 1 MG TABLET PO SCH (08:21)
[2019-08-25] MEDS: THIAMINE 100MG TABLET PO SCH (08:22)
[2019-08-25] MEDS: FUROSEMIDE 20 MG TABLET PO SCH ×2 (08:22→21:36)
[2019-08-25 14:30] VITALS: BP 90/55
[2019-08-25] MEDS ORDERED: DIPHENHYDRAMINE 50 MG CAPSULE PO PRN (16:30)
[2019-08-25] MEDS: CEFTRIAXONE PMX 2GM/50ML 50 ML IV SCH (17:24)
[2019-08-25 19:51] VITALS: BP 95/58
[2019-08-25] MEDS ORDERED: METOCLOPRAMIDE 5 MG/ML, 2ML IVPush ONE (21:00)
[2019-08-26 00:02] VITALS: BP 94/63
[2019-08-26] MEDS: METRONIDAZOLE PMX 500MG/100ML 100 ML IV SCH ×2 (02:01→10:00)
[2019-08-26] MEDS: PROPRANOLOL 20 MG TABLET PO SCH (06:12)
[2019-08-26] MEDS: SUCRALFATE 1 GM/10 ML UDC PO SCH ×2 (06:12→11:00)
[2019-08-26] MEDS: METOCLOPRAMIDE 5 MG/ML, 2ML IVPush PRN (06:20)
[2019-08-26 06:37] LABS: CHLORIDE 106 mmol/L (98-107)
[2019-08-26 06:52] LABS: ANION GAP 7 mmol/L (5-15); CALCIUM 7.4 mg/dL (8.5-10.1); CREATININE 0.72 mg/dL (0.55-1.02)
[2019-08-26 06:53] LABS: ALANINE AMINOTRANSFERASE 11 U/L (12-78); ALBUMIN 1.8 g/dL (3.4-5.0); ALKALINE PHOSPHATASE 176 U/L (45-117); BILIRUBIN,TOTAL 2.8 mg/dL (0.2-1.0); TOTAL PROTEIN 6.3 g/dL (6.4-8.2)
[2019-08-26] MEDS ORDERED: MAGNESIUM SULFATE PMX 2GM/50ML 50 ML IV ONE (08:00)
[2019-08-26] MEDS ORDERED: POTASSIUM PHOSPHATE 44 MEQ in SODIUM CHLORIDE 0.9% 500 ML IV SCH (08:00)
[2019-08-26] MEDS: POTASSIUM CHLORIDE 20 MEQ TAB.ER.PRT PO SCH ×3 (09:00→10:00)
[2019-08-26 09:11] VITALS: BP 93/56
[2019-08-26] MEDS: PANTOPRAZOLE 40 MG IV IVPush SCH (09:16)
[2019-08-26] MEDS: LACTULOSE 20 GM/30 ML UDC PO SCH (09:16)
[2019-08-26] MEDS: FOLIC ACID 1 MG TABLET PO SCH (09:17)
[2019-08-26] MEDS: MAGNESIUM OXIDE 400 MG TABLET PO SCH (09:17)
[2019-08-26] MEDS: SPIRONOLACTONE 25 MG TABLET PO SCH (09:18)
[2019-08-26] MEDS: THIAMINE 100MG TABLET PO SCH (09:18)
[2019-08-26] MEDS: FUROSEMIDE 20 MG TABLET PO SCH (09:18)
== END 2019-08-26 12:53 | disposition left against medical advice (07) | DRG 441 ==
LOC: ED 09:35 → EDIP 10:16 → 4WST 11:20 → OBSVTOIN 08-21 07:41
PROVIDERS: ADMIT Internal Medicine; ATTEND Internal Medicine
PROC: 0W9G3ZZ Drainage of Peritoneal Cavity, Percutaneous Approach (ICD-10-PCS; principal; 2019-08-21)
PROC: 30233N1 Transfusion of Nonautologous Red Blood Cells into Peripheral Vein, Percutaneous Approach (ICD-10-PCS; 2019-08-21)
DX: K72.00 Acute and subacute hepatic failure without coma (principal); E43 Unspecified severe protein-calorie malnutrition; G93.41 Metabolic encephalopathy; D61.818 Other pancytopenia; D68.4 Acquired coagulation factor deficiency; K76.6 Portal hypertension; N39.0 Urinary tract infection, site not specified; K70.31 Alcoholic cirrhosis of liver with ascites; Z68.23 Body mass index [BMI] 23.0-23.9, adult; Z88.0 Allergy status to penicillin; Z88.8 Allergy status to other drugs, medicaments and biological substances; Z91.041 Radiographic dye allergy status; E83.39 Other disorders of phosphorus metabolism; E83.42 Hypomagnesemia; E87.6 Hypokalemia; F10.229 Alcohol dependence with intoxication, unspecified; G89.29 Other chronic pain; I25.2 Old myocardial infarction; Y90.8 Blood alcohol level of 240 mg/100 ml or more; Z86.711 Personal history of pulmonary embolism; Z87.11 Personal history of peptic ulcer disease; Z98.84 Bariatric surgery status
CPT/HCPCS: 36415; 74018; 89051; 99285; J3490; J7042; 49083; 71045; 74176; 76700; 78582; 80048; 80053; 80307; 81001; 82140; 83690; 83735; 84100; 84443; 84484; 84702; 85014; 85018; 85025; 85379; 85610; 85730; 86850; 86900; 86923; 87040; 87070; 87086; 87205; 93005; G0378; J0696; J3411; J3475; J3480; A9540; A9558; C9113; J2060; J2270; J2765; J7030; J7040; P9016

== ENCOUNTER 2019-09-22 02:25 | Emergency (ER) | payer OTHER ==
[~2019-09-22] VITALS: Ht 160 cm; Wt 60.5 kg
[~2019-09-22 02:25] MED LIST changes: +LEVO750T26 PO
[2019-09-22] MEDS ORDERED: ASPIRIN 81 MG TABLET CHEW PO ONE (03:00)
[2019-09-22 03:55] LABS: RAPID INFLUENZA A Negative (Negative); RAPID INFLUENZA B Negative (Negative)
[2019-09-22 03:59] LABS: ALANINE AMINOTRANSFERASE 24 U/L (12-78); ANION GAP 6 mmol/L (5-15); CHLORIDE 113 mmol/L (98-107); CREATININE 0.52 mg/dL (0.55-1.02)
[2019-09-22 04:03] LABS: ALKALINE PHOSPHATASE 183 U/L (45-117); BILIRUBIN,TOTAL 1.8 mg/dL (0.2-1.0); TOTAL PROTEIN 6.5 g/dL (6.4-8.2); TROPONIN I < 0.015 ng/mL (0.000-0.045)
[2019-09-22 04:14] LABS: MEAN CORPUSCULAR HEMOGLOBIN 33.9 pg (27.0-34.8); MEAN CORPUSCULAR HGB CONC 33.7 g/dL (32.4-35.8); MEAN CORPUSCULAR VOLUME 100.5 fL (80-100); MEAN PLATELET VOLUME 7.8 fL (7.4-10.4); PLATELET COUNT 59 x10^3/uL (130-400); RED BLOOD COUNT 2.58 x10^6/uL (3.82-5.3); RED CELL DISTRIBUTION WIDTH 25.3 % (9.6-15.2)
[2019-09-22] MEDS ORDERED: POTASSIUM CHLORIDE 20 MEQ TAB.ER.PRT ONE (04:24)
[2019-09-22] MEDS ORDERED: POTASSIUM CHLORIDE 20 MEQ TAB.ER.PRT PO ONE (04:30)
[2019-09-22 04:36] VITALS: BP 96/57
[2019-09-22 04:49] LABS: MD YES
[2019-09-22 04:51] LABS: EOS#(MANUAL) 0.04 x10^3/uL (0.0-0.4); EOS% (MANUAL) 1 % (1-7); LYMPH#(MANUAL) 1.33 x10^3/uL (1-3.4); LYMPHS% (MANUAL) 38 % (22-44); MONOS#(MANUAL) 0.28 x10^3/uL (0.3-2.7); MONOS% (MANUAL) 8 % (2-9); SEG#(MANUAL) 1.86 x10^3/uL (1.8-6.8); SEGS% (MANUAL) 53 % (42-75)
[2019-09-22 04:52] LABS: <PLATELET ESTIMATE> DECREASED; <PLT MORPHOLOGY> NORMAL PLT MORPH; ANISOCYTOSIS 1+; OVALOCYTES 1+
== END 2019-09-22 04:43 | disposition home or self-care (01) ==
LOC: ED 04:30
DX: K29.20 Alcoholic gastritis without bleeding (principal); F10.220 Alcohol dependence with intoxication, uncomplicated; R07.89 Other chest pain; E87.6 Hypokalemia; Z72.9 Problem related to lifestyle, unspecified; Y90.0 Blood alcohol level of less than 20 mg/100 ml
CPT/HCPCS: 36415; 71045; 80053; 80307; 83690; 83880; 84484; 84703; 85025; 87400; 93005; 99285

== ENCOUNTER 2019-10-29 19:51 | Observation (INO) | payer OTHER ==
[~2019-10-29] VITALS: Ht 160 cm; Wt 62.0 kg
--- NOTE | 2019-10-29 20:03 | NUR ---
C/O ABD DISTENTION X4 DAYS, FEELS PRESSURE.
[2019-10-29] MEDS ORDERED: SODIUM CHLORIDE FLUSH 10ML SYR IVF ONE (20:30)
[2019-10-29] MEDS ORDERED: MORPHINE SULFATE 4 MG/ML, 1ML IVPush PRN (20:30)
[2019-10-29] MEDS ORDERED: MORPHINE SULFATE 4 MG/ML, 1ML ONE (20:42)
[2019-10-29] MEDS ORDERED: DIPHENHYDRAMINE 50 MG CAPSULE PO STA (20:48)
[2019-10-29] MEDS ORDERED: DIPHENHYDRAMINE 25 MG CAPSULE ONE (20:52)
[2019-10-29] MEDS ORDERED: METOCLOPRAMIDE 5 MG/ML, 2ML ONE (20:54)
[2019-10-29] MEDS ORDERED: METOCLOPRAMIDE 5 MG/ML, 2ML IVPush ONE (21:00)
--- NOTE | 2019-10-29 21:00 | NUR ---
MEDICATED PER SEP. PT RESTING IN NO ACUTE DISTRESS. VSS.
--- NOTE | 2019-10-29 21:40 | NUR ---
U/S TECH AT BEDSIDE.
[2019-10-29 21:48] LABS: ALANINE AMINOTRANSFERASE 19 U/L (12-78); ALBUMIN 1.8 g/dL (3.4-5.0); CHLORIDE 103 mmol/L (98-107); CREATININE 0.76 mg/dL (0.55-1.02)
[2019-10-29 21:50] LABS: ALKALINE PHOSPHATASE 141 U/L (45-117); BILIRUBIN,TOTAL 4.8 mg/dL (0.2-1.0); TOTAL PROTEIN 6.6 g/dL (6.4-8.2)
[2019-10-29 21:55] LABS: ANION GAP 8 mmol/L (5-15)
[2019-10-29] MEDS ORDERED: POTASSIUM CHLORIDE 20 MEQ in SODIUM CHLORIDE 0.9% 250 ML IV ONE (22:00)
[2019-10-29] MEDS ORDERED: POTASSIUM CHLORIDE 20 MEQ TAB.ER.PRT PO ONE (22:00)
[2019-10-29] MEDS ORDERED: POTASSIUM CHLORIDE 20 MEQ TAB.ER.PRT ONE (22:02)
[2019-10-29 22:03] LABS: MD YES; MEAN CORPUSCULAR HEMOGLOBIN 35.2 pg (27.0-34.8); MEAN CORPUSCULAR VOLUME 103.7 fL (80-100); MEAN PLATELET VOLUME 8.4 fL (7.4-10.4); PLATELET COUNT 97 x10^3/uL (130-400); RED BLOOD COUNT 2.32 x10^6/uL (3.82-5.3); RED CELL DISTRIBUTION WIDTH 23.1 % (9.6-15.2)
[2019-10-29 22:07] LABS: ANISOCYTOSIS 1+; BASOS#(MANUAL) 0.22 x10^3/uL (0-0.1); BASOS% (MANUAL) 4 % (0-1); LYMPH#(MANUAL) 0.94 x10^3/uL (1-3.4); LYMPHS% (MANUAL) 17 % (22-44); MONOS#(MANUAL) 0.22 x10^3/uL (0.3-2.7); MONOS% (MANUAL) 4 % (2-9); SEG#(MANUAL) 4.13 x10^3/uL (1.8-6.8); SEGS% (MANUAL) 75 % (42-75)
[2019-10-29 22:08] LABS: ACANTHOCYTES 1+; ECHINOCYTES 1+; OVALOCYTES 1+
[2019-10-29 22:09] LABS: TARGET CELLS 1+; TEAR DROPS 1+
[2019-10-29 22:10] LABS: <PLATELET ESTIMATE> DECREASED; SCHISTOCYTES 1+
[2019-10-29 22:11] LABS: <PLT MORPHOLOGY> NORMAL PLT MORPH
[2019-10-29 22:12] LABS: INTERNATIONAL NORMALIZED RATIO 2.48 (0.93-1.1); PROTHROMBIN TIME 26.5 Seconds (9.6-11.5)
--- NOTE | 2019-10-29 22:24 | NUR ---
PT UP TO BR ON STEADY GAIT. VSS.
[2019-10-29] MEDS ORDERED: MAGNESIUM SULFATE 1 GM in SODIUM CHLORIDE 0.9% 50 ML IV ONE (23:00)
[2019-10-29] MEDS ORDERED: MAGNESIUM SULFATE/D5W 100 ML IVPB ONE (23:00)
--- NOTE | 2019-10-29 23:12 | NUR ---
ADMITTING HOSPITALIST AT BEDSIDE.
[2019-10-29] MEDS ORDERED: hydrALAzine 20 MG/ML, 1ML IVPush PRN (23:30)
[2019-10-29] MEDS ORDERED: ONDANSETRON 2MG/ML, 2ML IVPush PRN (23:30)
--- NOTE | 2019-10-30 00:11 | NUR ---
REPORT GIVEN TO WENDY SONG.
[2019-10-30 00:43] VITALS: BP 94/56
[2019-10-30 01:01] VITALS: BP 94/54
[2019-10-30] MEDS: morphine SULFATE 10 MG/ML, 1ML IVPush PRN ×4 (01:12→12:18)
[2019-10-30 06:00] LABS: ANION GAP 3 mmol/L (5-15); CALCIUM 7.3 mg/dL (8.5-10.1); CHLORIDE 106 mmol/L (98-107)
[2019-10-30 06:02] LABS: CREATININE 0.73 mg/dL (0.55-1.02)
[2019-10-30 06:06] LABS: MEAN CORPUSCULAR HEMOGLOBIN 34.8 pg (27.0-34.8); MEAN CORPUSCULAR HGB CONC 33.5 g/dL (32.4-35.8); MEAN CORPUSCULAR VOLUME 103.6 fL (80-100); RED BLOOD COUNT 2.21 x10^6/uL (3.82-5.3); RED CELL DISTRIBUTION WIDTH 23.4 % (9.6-15.2)
[2019-10-30 06:59] VITALS: BP 101/56
[2019-10-30 07:04] LABS: MD YES; MEAN PLATELET VOLUME 7.9 fL (7.4-10.4); PLATELET COUNT 92 x10^3/uL (130-400)
[2019-10-30 07:07] LABS: ACANTHOCYTES 1+; ANISOCYTOSIS 1+; BAND#(MANUAL) 0.12 x10^3/uL; BANDS%(MANUAL) 2 % (0-7); BASOS#(MANUAL) 0.06 x10^3/uL (0-0.1); BASOS% (MANUAL) 1 % (0-1); ECHINOCYTES 1+; EOS#(MANUAL) 0.19 x10^3/uL (0.0-0.4); EOS% (MANUAL) 3 % (1-7); LYMPH#(MANUAL) 0.99 x10^3/uL (1-3.4); LYMPHS% (MANUAL) 16 % (22-44); MONOS#(MANUAL) 0.31 x10^3/uL (0.3-2.7); MONOS% (MANUAL) 5 % (2-9); OVALOCYTES 1+; REACTIVE LYMPHS # (MANUAL) 0.06 x10^3/uL (0-0); REACTIVE LYMPHS % (MANUAL) 1 % (0-0); SCHISTOCYTES 1+; SEG#(MANUAL) 4.46 x10^3/uL (1.8-6.8); SEGS% (MANUAL) 72 % (42-75); TARGET CELLS 1+
[2019-10-30 07:09] LABS: <PLATELET ESTIMATE> DECREASED; <PLT MORPHOLOGY> NORMAL PLT MORPH
[2019-10-30] MEDS ORDERED: PANTOPRAZOLE 40 MG IV IVPush SCH (07:30)
[2019-10-30] MEDS ORDERED: K-LYTE 25 MEQ TABLET.EFF PO SCH (09:00)
[2019-10-30] MEDS ORDERED: MAGNESIUM OXIDE 400 MG TABLET PO SCH (09:00)
[2019-10-30] MEDS ORDERED: POTASSIUM CHLORIDE 20 MEQ TAB.ER.PRT PO SCH (09:00)
[2019-10-30] MEDS ORDERED: LACTULOSE 10 GM/15 ML UDC PO SCH (09:00)
[2019-10-30] MEDS ORDERED: SPIRONOLACTONE 25 MG TABLET PO SCH (09:00)
[2019-10-30] MEDS ORDERED: FUROSEMIDE 20 MG TABLET PO SCH (09:00)
[2019-10-30 12:00] VITALS: BP 99/61
[2019-10-30] MEDS ORDERED: POTASSIUM CHLORIDE 20 MEQ TAB.ER.PRT PO ONE (12:00)
[2019-10-30] MEDS ORDERED: PANT40TA5 PO ×2 (12:05)
[2019-10-30 13:20] VITALS: BP 102/60
[2019-11-11] MEDS ORDERED: ASCO500T9 PO ×2 (11:08)
[2019-11-12] MEDS ORDERED: FURO-93 PO ×2 (15:45)
[2019-11-12] MEDS ORDERED: CEFD300C37 PO ×2 (15:45)
== END 2019-10-30 14:33 | disposition home or self-care (01) ==
LOC: ED 20:48 → INTOOBSV 22:33 → EDIP 22:33 → 4WST 10-30 00:27
PROVIDERS: ADMIT Internal Medicine; ATTEND Hospitalist
DX: K70.31 Alcoholic cirrhosis of liver with ascites (principal); K29.20 Alcoholic gastritis without bleeding; E87.6 Hypokalemia; E83.42 Hypomagnesemia; K76.6 Portal hypertension; D61.818 Other pancytopenia; K63.89 Other specified diseases of intestine; D53.1 Other megaloblastic anemias, not elsewhere classified; D68.9 Coagulation defect, unspecified; F10.129 Alcohol abuse with intoxication, unspecified; Z87.11 Personal history of peptic ulcer disease; Z93.4 Other artificial openings of gastrointestinal tract status; Z88.0 Allergy status to penicillin; Z79.899 Other long term (current) drug therapy; Z88.6 Allergy status to analgesic agent
CPT/HCPCS: 36415; 71045; 76700; 80048; 80053; 80307; 82140; 83690; 83735; 84100; 84145; 85025; 85610; 85730; 93005; 96365; 96366; 96368; 96375; 96376; 99291; C9113; G0378; J2270; J2765; J3480; J7050; 96361

== ENCOUNTER 2019-11-06 19:47 | Inpatient (IN) | payer OTHER ==
[~2019-11-06] VITALS: Ht 160 cm; Wt 62.8 kg
--- NOTE | 2019-11-06 20:03 | NUR ---
PT C/O "NOT FEELING WELL" FOR A COUPLE DAYS. DIARRHEA TODAY WITH N/V. "ABD FEELS DISTENDED". PT CONNECTED TO MONITORING. CALL LIGTH IN REACH.
[2019-11-06] MEDS ORDERED: MORPHINE SULFATE 4 MG/ML, 1ML ONE (20:25)
[2019-11-06] MEDS ORDERED: morphine SULFATE 10 MG/ML, 1ML IVPush ONE (20:30)
--- NOTE | 2019-11-06 20:35 | NUR ---
PT INDWELLING PORT TO RIGHT CHEST ACCESSED BY TASK RN. LABS COLLECTED, WERE TWO SETS OF BLOOD CULTURES. PAIN MEDS ADMIN PER SEP, OXYGEN PLACE FOR SAFETY. CONSENT SIGNED FOR PARACENTESIS. PT RESTING ON RNEY. FINCH.
[2019-11-06 20:45] LABS: ALANINE AMINOTRANSFERASE 27 U/L (12-78); ALBUMIN 1.9 g/dL (3.4-5.0); ANION GAP 8 mmol/L (5-15); CALCIUM 7.5 mg/dL (8.5-10.1); CHLORIDE 102 mmol/L (98-107)
[2019-11-06 20:48] LABS: ALKALINE PHOSPHATASE 182 U/L (45-117); BILIRUBIN,TOTAL 7.4 mg/dL (0.2-1.0); CREATININE 0.62 mg/dL (0.55-1.02); TOTAL PROTEIN 7.6 g/dL (6.4-8.2)
[2019-11-06 20:48] LABS: CULTURE INDICATED? YES; MICROSCOPIC INDICATED
[2019-11-06 20:55] LABS: MEAN CORPUSCULAR HEMOGLOBIN 36.3 pg (27.0-34.8); MEAN CORPUSCULAR HGB CONC 34.1 g/dL (32.4-35.8); MEAN CORPUSCULAR VOLUME 106.3 fL (80-100); MEAN PLATELET VOLUME 7.6 fL (7.4-10.4); PLATELET COUNT 106 x10^3/uL (130-400); RED BLOOD COUNT 2.45 x10^6/uL (3.82-5.3); RED CELL DISTRIBUTION WIDTH 23.6 % (9.6-15.2)
[2019-11-06 20:56] LABS: MD YES
[2019-11-06 21:00] LABS: BAND#(MANUAL) 0.12 x10^3/uL; BANDS%(MANUAL) 2 % (0-7); EOS#(MANUAL) 0.06 x10^3/uL (0.0-0.4); EOS% (MANUAL) 1 % (1-7); LYMPH#(MANUAL) 0.73 x10^3/uL (1-3.4); LYMPHS% (MANUAL) 12 % (22-44); MONOS#(MANUAL) 0.43 x10^3/uL (0.3-2.7); MONOS% (MANUAL) 7 % (2-9); REACTIVE LYMPHS # (MANUAL) 0.12 x10^3/uL (0-0); REACTIVE LYMPHS % (MANUAL) 2 % (0-0); SEG#(MANUAL) 4.64 x10^3/uL (1.8-6.8); SEGS% (MANUAL) 76 % (42-75)
[2019-11-06] MEDS ORDERED: LIDOCAINE 1%, 10ML INFIL ONE (21:00)
[2019-11-06 21:01] LABS: <RBC MORPHOLOGY> NORMAL; ACANTHOCYTES 1+; ANISOCYTOSIS 1+; ECHINOCYTES 1+; OVALOCYTES 1+; POLYCHROMASIA 1+; SCHISTOCYTES 1+; TARGET CELLS 1+; TEAR DROPS 1+
[2019-11-06] MEDS ORDERED: LIDOCAINE-MPF 1%, 5ML ONE (21:01)
--- NOTE | 2019-11-06 21:02 | NUR ---
PT TAKEN TO [place]. SANDEEP PULLED FOR PROVIDER ADMIN.
[2019-11-06 21:03] LABS: <PLATELET ESTIMATE> DECREASED; <PLT MORPHOLOGY> NORMAL PLT MORPH
--- NOTE | 2019-11-06 21:07 | NUR ---
PT BACK FROM CT. PT RESTING ON [place]. STEF. PT STATES PAIN IS MUCH BETTER AFTER PAIN MEDS.
[2019-11-06] MEDS ORDERED: CEFTRIAXONE PMX 1GM/50ML 50 ML ONE (21:08)
[2019-11-06] MEDS ORDERED: CEFTRIAXONE PMX 1GM/50ML 50 ML IV ONE (21:30)
--- NOTE | 2019-11-06 21:37 | NUR ---
US AT BEDSIDE FOR PARACENTESIS.
[2019-11-06] MEDS ORDERED: MAALOX/HYOSCYAMINE/LIDOCAINE 45 ML BTL ONE (22:24)
--- NOTE | 2019-11-06 22:28 | NUR ---
PARACENTESIS COMPLETE. PT HR IN 120S, PT C/O SUBSTERNAL CPFranco CASTRO NOTIFIED. NEW ORDER FOR GI COCKTAIL. VALET PER SEP.
[2019-11-06] MEDS ORDERED: MAALOX/HYOSCYAMINE/LIDOCAINE 45 ML BTL PO ONE (22:30)
[2019-11-06] MEDS ORDERED: OXYcodone/APAP 5/325MG TABLET ONE (22:33)
[2019-11-06] MEDS ORDERED: DIPHENHYDRAMINE 50 MG/ML, 1ML ONE (22:54)
--- NOTE | 2019-11-06 22:59 | NUR ---
PT HR HIGH 130S. NOTIFIED. NEW ORDER FOR CT WITH CONTRAST AND BENADRYL, D/T CONTRAST ALLERGY. FINAL INSPECTOR BALANCE WHEEL PER SEP. PT RESTING ON GURNEY. ROGERS
[2019-11-06] MEDS ORDERED: METOCLOPRAMIDE 5 MG/ML, 2ML IVPush ONE (23:00)
[2019-11-06] MEDS ORDERED: OXYcodone/APAP 5/325MG TABLET PO ONE (23:00)
[2019-11-06] MEDS ORDERED: DIPHENHYDRAMINE 50 MG/ML, 1ML IVPush ONE (23:00)
--- NOTE | 2019-11-06 23:21 | NUR ---
PT TAKEN TO CT.
--- NOTE | 2019-11-06 23:33 | NUR ---
PT BACK FROM CT. PT RECONNECTED TO MONITORING. HOSPITALIST AT BEDSIDE.
[2019-11-06] MEDS ORDERED: OMNIPAQUE 350 MG/ML, 100ML BOTTLE ONE (23:36)
[2019-11-06] MEDS ORDERED: LORazepam 2 MG/ML, 1ML ONE (23:37)
--- NOTE | 2019-11-06 23:54 | NUR ---
CHARTER BOAT OPERATOR PER SEP. PT GIVEN CUP OF ICE WATER. REPORT GIVEN TO JORDYN SONG.
--- NOTE | 2019-11-06 23:57 | NUR ---
REPORT FROM NOHEMI COLIN. PT TO BE ADMITTED. [facility] AT BEDSIDE. DISCUSSED VS AND LABS WITH ERP, NO IVF ORDERED AT THIS TIME. PT RESTING [place]ML[place]. BP/SPO2/ECG MONITORING IN PLACE. SINUS TACH ON MONITOR.
[2019-11-07] MEDS ORDERED: LORazepam 2 MG/ML, 1ML IVPush ONE
--- NOTE | 2019-11-07 00:30 | NUR ---
REPORT TO NOHEMI MORIN
[2019-11-07] MEDS ORDERED: NS + 20MEQ KCL 1,000 ML IV SCH (00:34)
[2019-11-07 00:54] VITALS: BP 118/71
[2019-11-07] MEDS ORDERED: ENALAPRILAT 1.25 MG/ML, 2ML IVPush PRN (01:00)
[2019-11-07] MEDS ORDERED: LABETALOL 5MG/ML, 20ML IVPush PRN (01:00)
[2019-11-07] MEDS ORDERED: LORazepam 1MG TABLET PO PRN (01:00)
[2019-11-07] MEDS ORDERED: PROCHLORPERAZINE 5 MG TABLET PO PRN (01:00)
[2019-11-07 01:13] LABS: BILIRUBIN, DIRECT 2.6 mg/dL (0.1-0.2); BILIRUBIN,INDIRECT 5.3 mg/dL (0.0-2.0); BILIRUBIN,TOTAL 7.9 mg/dL (0.2-1.0)
[2019-11-07 01:16] LABS: TROPONIN I < 0.015 ng/mL (0.000-0.045)
[2019-11-07] MEDS: morphine SULFATE 10 MG/ML, 1ML IVPush PRN ×3 (02:00→15:32)
[2019-11-07 06:01] LABS: AMPHETAMINE SCREEN, URINE Negative (Negative); BARBITURATE SCREEN, URINE Negative (Negative); BENZODIAZEPINE SCREEN, URINE Positive (Negative); CANNABINOID SCREEN, URINE Negative (Negative); COCAINE SCREEN, URINE Negative (Negative); METHADONE SCREEN, URINE Negative (Negative); OPIATE SCREEN, URINE Positive (Negative)
[2019-11-07 06:53] LABS: CHLORIDE 103 mmol/L (98-107)
[2019-11-07 07:04] LABS: ALANINE AMINOTRANSFERASE 25 U/L (12-78); ALBUMIN 1.7 g/dL (3.4-5.0); ALKALINE PHOSPHATASE 142 U/L (45-117); ANION GAP 8 mmol/L (5-15); BILIRUBIN,TOTAL 8.5 mg/dL (0.2-1.0); CALCIUM 7.3 mg/dL (8.5-10.1); CREATININE 0.77 mg/dL (0.55-1.02); TOTAL PROTEIN 6.6 g/dL (6.4-8.2); TROPONIN I < 0.015 ng/mL (0.000-0.045)
[2019-11-07 07:53] LABS: MEAN CORPUSCULAR HEMOGLOBIN 35.9 pg (27.0-34.8); MEAN CORPUSCULAR HGB CONC 33.5 g/dL (32.4-35.8); MEAN CORPUSCULAR VOLUME 107.2 fL (80-100); PLATELET COUNT 93 x10^3/uL (130-400); RED CELL DISTRIBUTION WIDTH 23.5 % (9.6-15.2)
[2019-11-07 07:54] LABS: MD YES
[2019-11-07 07:56] LABS: BAND#(MANUAL) 1.04 x10^3/uL; BANDS%(MANUAL) 9 % (0-7); EOS#(MANUAL) 0.23 x10^3/uL (0.0-0.4); EOS% (MANUAL) 2 % (1-7); LYMPH#(MANUAL) 0.46 x10^3/uL (1-3.4); LYMPHS% (MANUAL) 4 % (22-44); MONOS#(MANUAL) 0.69 x10^3/uL (0.3-2.7); MONOS% (MANUAL) 6 % (2-9); SEG#(MANUAL) 9.09 x10^3/uL (1.8-6.8); SEGS% (MANUAL) 79 % (42-75)
[2019-11-07 07:57] LABS: ANISOCYTOSIS 1+; HYPOCHROMIA 1+; OVALOCYTES 1+; TARGET CELLS 1+
[2019-11-07 07:58] LABS: POLYCHROMASIA 1+; ROULEAUX 1+; SCHISTOCYTES 1+
[2019-11-07 07:59] LABS: <PLATELET ESTIMATE> DECREASED; ACANTHOCYTES 1+; ECHINOCYTES 1+
[2019-11-07 08:00] LABS: <PLT MORPHOLOGY> NORMAL PLT MORPH
[2019-11-07 08:11] VITALS: BP 123/75
[2019-11-07] MEDS: FAMOTIDINE 20 MG TABLET PO SCH ×2 (08:37→21:18)
[2019-11-07] MEDS: K-LYTE 25 MEQ TABLET.EFF PO SCH (08:37)
[2019-11-07] MEDS: LACTULOSE 10 GM/15 ML UDC PO SCH ×3 (08:37→21:18)
[2019-11-07] MEDS: MAGNESIUM OXIDE 400 MG TABLET PO SCH (08:37)
[2019-11-07] MEDS: MULTIVITS,STRESS FORMULA 1 TABLET PO SCH (08:52)
[2019-11-07] MEDS: CHOLECALCIFEROL 400 UNITS TABLET PO SCH (08:52)
[2019-11-07] MEDS ORDERED: MAGNESIUM SULFATE PMX 2GM/50ML 50 ML IV ONE (09:00)
[2019-11-07 11:54] VITALS: BP 105/62
[2019-11-07 12:00] VITALS: BP 105/62
[2019-11-07] MEDS: HYDROcodone/APAP 5/325 TABLET PO PRN ×3 (12:20→23:40)
[2019-11-07] MEDS: ASCORBIC ACID 500 MG TABLET PO SCH (16:27)
[2019-11-07 18:50] VITALS: BP 128/67
[2019-11-07] MEDS ORDERED: morphine SULFATE 10 MG/ML, 1ML IVPush PRN (19:00)
[2019-11-07] MEDS: PROMETHAZINE 25 MG/ML, 1ML IM PRN (21:19)
[2019-11-07] MEDS: CEFTRIAXONE PMX 1GM/50ML 50 ML IV SCH (21:19)
[2019-11-07 21:37] LABS: OCCULT BLOOD POSITIVE (NEGATIVE)
[2019-11-07 22:08] LABS: CLOSTRIDIUM DIFFICILE ANTIGEN NEGATIVE; CLOSTRIDIUM DIFFICILE TOXIN NEGATIVE (Negative)
[2019-11-08] VITALS (7 sets, daily range): BP systolic 99–113; BP diastolic 57–71
[2019-11-08] MEDS: HYDROcodone/APAP 5/325 TABLET PO PRN (03:54)
[2019-11-08 05:35] LABS: ALBUMIN 1.7 g/dL (3.4-5.0); ANION GAP 7 mmol/L (5-15); CALCIUM 7.6 mg/dL (8.5-10.1); CHLORIDE 102 mmol/L (98-107); CREATININE 0.69 mg/dL (0.55-1.02)
[2019-11-08 06:33] LABS: MEAN CORPUSCULAR HEMOGLOBIN 36.6 pg (27.0-34.8); MEAN CORPUSCULAR HGB CONC 33.6 g/dL (32.4-35.8); MEAN CORPUSCULAR VOLUME 108.8 fL (80-100); MEAN PLATELET VOLUME 8.3 fL (7.4-10.4); PLATELET COUNT 77 x10^3/uL (130-400); RED BLOOD COUNT 1.84 x10^6/uL (3.82-5.3); RED CELL DISTRIBUTION WIDTH 22.6 % (9.6-15.2)
[2019-11-08 06:39] LABS: BASOPHILS % (AUTO) 0 % (0-1); EOSINOPHILS # (AUTO) 0.09 x10^3/uL (0-0.4); EOSINOPHILS % (AUTO) 1 % (1-7); LYMPHOCYTES # (AUTO) 1.01 x10^3/uL (1-3.4); LYMPHOCYTES % (AUTO) 17 % (22-44); MD MORPH REVIEW ONLY; MONOCYTES # (AUTO) 0.22 x10^3/uL (0.2-0.8); MONOCYTES % (AUTO) 4 % (2-9); NEUTROPHILS # (AUTO) 4.74 x10^3/uL (1.8-6.8); NEUTROPHILS % (AUTO) 78 % (42-75)
[2019-11-08 06:41] LABS: ANISOCYTOSIS 1+; HYPOCHROMIA 1+; POLYCHROMASIA 1+
[2019-11-08 06:42] LABS: ACANTHOCYTES 1+; ECHINOCYTES 1+; OVALOCYTES 1+
[2019-11-08 06:43] LABS: <PLATELET ESTIMATE> DECREASED; <PLT MORPHOLOGY> NORMAL PLT MORPH; TARGET CELLS 1+
[2019-11-08] MEDS: ASCORBIC ACID 500 MG TABLET PO SCH ×2 (09:18→16:31)
[2019-11-08] MEDS: K-LYTE 25 MEQ TABLET.EFF PO SCH (09:18)
[2019-11-08] MEDS: FAMOTIDINE 20 MG TABLET PO SCH (09:18)
[2019-11-08] MEDS: MULTIVITS,STRESS FORMULA 1 TABLET PO SCH (09:18)
[2019-11-08] MEDS: LACTULOSE 10 GM/15 ML UDC PO SCH ×3 (09:18→20:59)
[2019-11-08] MEDS: MAGNESIUM OXIDE 400 MG TABLET PO SCH (09:18)
[2019-11-08] MEDS: CHOLECALCIFEROL 400 UNITS TABLET PO SCH (09:18)
[2019-11-08] MEDS: HYDROmorphone 1 MG/ML, 1ML INJ IV PRN ×3 (09:19→18:27)
[2019-11-08] MEDS ORDERED: PANTOPRAZOLE 40 MG IV IVPush SCH (10:30)
[2019-11-08] MEDS: PANTOPRAZOLE 80 MG in SODIUM CHLORIDE 0.9% 100 ML IV SCH ×3 (11:00→20:50)
[2019-11-08] MEDS ORDERED: OCTREOTIDE 1,250 MCG in SODIUM CHLORIDE 0.9% 247.5 ML IV PRN (11:00)
[2019-11-08] MEDS ORDERED: ALBUMIN HUMAN 25% 100 ML IV ONE (11:00)
[2019-11-08] MEDS: PHYTONADIONE 10 MG/ML, 1ML SQ SCH (13:34)
[2019-11-08] MEDS ORDERED: PANTOPRAZOLE 80 MG in SODIUM CHLORIDE 0.9% 50 ML IV ONE (14:30)
[2019-11-08 15:55] LABS: INTERNATIONAL NORMALIZED RATIO 2.24 (0.93-1.1); PROTHROMBIN TIME 23.9 Seconds (9.6-11.5)
[2019-11-08] MEDS ORDERED: GOLYTELY 4,000ML ORAL.SOL PO ONE (18:00)
[2019-11-08] MEDS: TEMAZEPAM 15 MG CAPSULE PO PRN (20:59)
[2019-11-08] MEDS: CEFTRIAXONE PMX 1GM/50ML 50 ML IV SCH (20:59)
[2019-11-09] VITALS (10 sets, daily range): BP systolic 93–107; BP diastolic 54–85
[2019-11-09] MEDS: PANTOPRAZOLE 80 MG in SODIUM CHLORIDE 0.9% 100 ML IV SCH ×4 (00:45→23:04)
[2019-11-09] MEDS: HYDROmorphone 1 MG/ML, 1ML INJ IV PRN ×4 (01:55→17:59)
[2019-11-09] MEDS: PROMETHAZINE 25 MG/ML, 1ML IM PRN (01:59)
[2019-11-09 06:25] LABS: ALANINE AMINOTRANSFERASE 20 U/L (12-78); ALBUMIN 1.7 g/dL (3.4-5.0); ANION GAP 5 mmol/L (5-15); CALCIUM 7.4 mg/dL (8.5-10.1); CHLORIDE 101 mmol/L (98-107)
[2019-11-09 06:27] LABS: ALKALINE PHOSPHATASE 115 U/L (45-117); BILIRUBIN,TOTAL 8.3 mg/dL (0.2-1.0); TOTAL PROTEIN 5.7 g/dL (6.4-8.2)
[2019-11-09 06:30] LABS: INTERNATIONAL NORMALIZED RATIO 2.37 (0.93-1.1); PROTHROMBIN TIME 25.3 Seconds (9.6-11.5)
[2019-11-09 06:45] LABS: MEAN CORPUSCULAR HEMOGLOBIN 35.2 pg (27.0-34.8); MEAN CORPUSCULAR HGB CONC 33.1 g/dL (32.4-35.8); MEAN CORPUSCULAR VOLUME 106.4 fL (80-100); MEAN PLATELET VOLUME 8.3 fL (7.4-10.4); PLATELET COUNT 83 x10^3/uL (130-400)
[2019-11-09 07:16] LABS: BASOPHILS # (AUTO) 0.03 x10^3/uL (0-0.1); BASOPHILS % (AUTO) 1 % (0-1); EOSINOPHILS # (AUTO) 0.09 x10^3/uL (0-0.4); EOSINOPHILS % (AUTO) 2 % (1-7); LYMPHOCYTES # (AUTO) 1.15 x10^3/uL (1-3.4); LYMPHOCYTES % (AUTO) 22 % (22-44); MD SCAN; MONOCYTES # (AUTO) 0.29 x10^3/uL (0.2-0.8); MONOCYTES % (AUTO) 5 % (2-9); NEUTROPHILS % (AUTO) 71 % (42-75)
[2019-11-09] MEDS: MULTIVITS,STRESS FORMULA 1 TABLET PO SCH (10:00)
[2019-11-09] MEDS: MAGNESIUM OXIDE 400 MG TABLET PO SCH (10:00)
[2019-11-09] MEDS: LACTULOSE 10 GM/15 ML UDC PO SCH ×3 (10:00→20:51)
[2019-11-09] MEDS: K-LYTE 25 MEQ TABLET.EFF PO SCH (10:00)
[2019-11-09] MEDS: CHOLECALCIFEROL 400 UNITS TABLET PO SCH (10:00)
[2019-11-09] MEDS: ASCORBIC ACID 500 MG TABLET PO SCH ×2 (10:00→17:45)
[2019-11-09] MEDS: PHYTONADIONE 10 MG/ML, 1ML SQ SCH (10:04)
[2019-11-09] MEDS: DIPHENHYDRAMINE 25 MG CAPSULE PO PRN (13:31)
[2019-11-09] MEDS: HYDROcodone/APAP 5/325 TABLET PO PRN ×2 (15:08→20:51)
[2019-11-09] MEDS: METOCLOPRAMIDE 5 MG/ML, 2ML IVPush PRN (15:47)
[2019-11-09 17:32] LABS: INTERNATIONAL NORMALIZED RATIO 2.07 (0.93-1.1); PROTHROMBIN TIME 22.1 Seconds (9.6-11.5)
[2019-11-09 17:57] LABS: MEAN CORPUSCULAR HEMOGLOBIN 34.7 pg (27.0-34.8); MEAN CORPUSCULAR HGB CONC 33.8 g/dL (32.4-35.8); MEAN CORPUSCULAR VOLUME 102.5 fL (80-100); MEAN PLATELET VOLUME 8.1 fL (7.4-10.4); PLATELET COUNT 79 x10^3/uL (130-400); RED BLOOD COUNT 2.62 x10^6/uL (3.82-5.3); RED CELL DISTRIBUTION WIDTH 21.9 % (9.6-15.2)
[2019-11-09 18:00] LABS: MD YES
[2019-11-09 18:09] LABS: ANISOCYTOSIS 1+; BAND#(MANUAL) 0.12 x10^3/uL; BANDS%(MANUAL) 2 % (0-7); BASOS#(MANUAL) 0.06 x10^3/uL (0-0.1); BASOS% (MANUAL) 1 % (0-1); LYMPH#(MANUAL) 1.33 x10^3/uL (1-3.4); LYMPHS% (MANUAL) 23 % (22-44); MONOS#(MANUAL) 0.29 x10^3/uL (0.3-2.7); MONOS% (MANUAL) 5 % (2-9); SEGS% (MANUAL) 69 % (42-75)
[2019-11-09 18:11] LABS: ACANTHOCYTES 1+; TARGET CELLS 1+
[2019-11-09 18:12] LABS: ECHINOCYTES 1+; HYPOCHROMIA 1+; POLYCHROMASIA 1+
[2019-11-09 18:13] LABS: <PLATELET ESTIMATE> DECREASED; <PLT MORPHOLOGY> NORMAL PLT MORPH; OVALOCYTES 1+; SCHISTOCYTES 1+
[2019-11-09] MEDS: TEMAZEPAM 15 MG CAPSULE PO PRN (20:51)
[2019-11-09] MEDS: CEFTRIAXONE PMX 1GM/50ML 50 ML IV SCH (20:53)
[2019-11-10 00:41] VITALS: BP 98/57
[2019-11-10] MEDS: HYDROmorphone 1 MG/ML, 1ML INJ IV PRN ×5 (02:04→21:07)
[2019-11-10 06:34] LABS: ALBUMIN 1.8 g/dL (3.4-5.0); ANION GAP 4 mmol/L (5-15); CALCIUM 7.6 mg/dL (8.5-10.1); CHLORIDE 106 mmol/L (98-107); CREATININE 0.54 mg/dL (0.55-1.02)
[2019-11-10 06:56] LABS: MD YES; MEAN CORPUSCULAR HEMOGLOBIN 35.3 pg (27.0-34.8); MEAN CORPUSCULAR HGB CONC 34.3 g/dL (32.4-35.8); MEAN CORPUSCULAR VOLUME 102.9 fL (80-100); MEAN PLATELET VOLUME 7.7 fL (7.4-10.4); PLATELET COUNT 80 x10^3/uL (130-400); RED BLOOD COUNT 2.65 x10^6/uL (3.82-5.3); RED CELL DISTRIBUTION WIDTH 22.6 % (9.6-15.2)
[2019-11-10] MEDS ORDERED: OCTREOTIDE 500 MCG in SODIUM CHLORIDE 0.9% 99 ML IV PRN (07:00)
[2019-11-10 07:14] LABS: ANISOCYTOSIS 1+; BASOS#(MANUAL) 0.11 x10^3/uL (0-0.1); BASOS% (MANUAL) 2 % (0-1); EOS#(MANUAL) 0.11 x10^3/uL (0.0-0.4); EOS% (MANUAL) 2 % (1-7); LYMPHS% (MANUAL) 16 % (22-44); MONOS#(MANUAL) 0.17 x10^3/uL (0.3-2.7); MONOS% (MANUAL) 3 % (2-9); POLYCHROMASIA 1+; SEG#(MANUAL) 4.31 x10^3/uL (1.8-6.8); SEGS% (MANUAL) 77 % (42-75)
[2019-11-10 07:17] LABS: <PLATELET ESTIMATE> DECREASED; <PLT MORPHOLOGY> NORMAL PLT MORPH
[2019-11-10 07:18] LABS: ECHINOCYTES 1+
[2019-11-10 07:36] LABS: HCG UR SG 1.012 (1.003-1.030)
[2019-11-10 08:05] VITALS: BP 95/59
[2019-11-10] MEDS: HYDROcodone/APAP 5/325 TABLET PO PRN ×4 (08:19→21:07)
[2019-11-10] MEDS: DIPHENHYDRAMINE 25 MG CAPSULE PO PRN ×2 (08:19→21:41)
[2019-11-10] MEDS: METOCLOPRAMIDE 5 MG/ML, 2ML IVPush PRN ×2 (08:20→21:41)
[2019-11-10] MEDS: PANTOPRAZOLE 80 MG in SODIUM CHLORIDE 0.9% 100 ML IV SCH ×2 (08:21→21:41)
[2019-11-10] MEDS: PHYTONADIONE 10 MG/ML, 1ML SQ SCH (08:21)
[2019-11-10] MEDS: MAGNESIUM OXIDE 400 MG TABLET PO SCH (08:38)
[2019-11-10] MEDS: CHOLECALCIFEROL 400 UNITS TABLET PO SCH (08:38)
[2019-11-10] MEDS: ASCORBIC ACID 500 MG TABLET PO SCH ×2 (08:38→17:05)
[2019-11-10] MEDS: LACTULOSE 10 GM/15 ML UDC PO SCH ×3 (08:38→21:07)
[2019-11-10] MEDS: K-LYTE 25 MEQ TABLET.EFF PO SCH (08:38)
[2019-11-10] MEDS: MULTIVITS,STRESS FORMULA 1 TABLET PO SCH (08:38)
[2019-11-10] MEDS ORDERED: CHLORHEXIDINE 15 ML UDC ONE (09:33)
[2019-11-10] MEDS ORDERED: PROPOFOL 10 MG/ML, 20ML ONE (09:52)
[2019-11-10] MEDS ORDERED: SUCCINYLCHOLINE 20 MG/ML, 10ML ONE (09:52)
[2019-11-10] MEDS ORDERED: MEPERIDINE/PF 25MG/0.5ML IVPush PRN (10:30)
[2019-11-10] MEDS ORDERED: LABETALOL 5MG/ML, 20ML IV PRN (10:30)
[2019-11-10] MEDS ORDERED: ONDANSETRON 2MG/ML, 2ML IVPush PRN (10:30)
[2019-11-10] MEDS ORDERED: ALBUTEROL SULFATE 2.5 MG/3 ML NPPB PRN (10:30)
[2019-11-10] MEDS ORDERED: hydrALAzine 20 MG/ML, 1ML IV PRN (10:30)
[2019-11-10] MEDS ORDERED: FENTANYL PF 100 MCG/2ML IV PRN (10:30)
[2019-11-10] MEDS ORDERED: OXYcodone 5 MG/5 ML ORAL.SOL UDC PO PRN (10:30)
[2019-11-10] MEDS ORDERED: DIAZEPAM 5 MG/ML, 2ML IV PRN ×2 (10:30)
[2019-11-10] MEDS ORDERED: PROMETHAZINE 25 MG/ML, 1ML IV PRN (10:30)
[2019-11-10] MEDS ORDERED: HYDROmorphone 1 MG/ML, 1ML INJ IV PRN (10:30)
[2019-11-10] MEDS ORDERED: KETOROLAC 30 MG/1 ML IV PRN (10:30)
[2019-11-10] MEDS ORDERED: METOCLOPRAMIDE 5 MG/ML, 2ML IV PRN (10:30)
[2019-11-10 13:34] VITALS: BP 94/61
[2019-11-10 13:59] LABS: INTERNATIONAL NORMALIZED RATIO 2.32 (0.93-1.1); PROTHROMBIN TIME 24.8 Seconds (9.6-11.5)
[2019-11-10] MEDS: SUCRALFATE 1 GM TABLET PO SCH ×2 (17:05→21:06)
[2019-11-10 18:58] VITALS: BP 100/62
[2019-11-10] MEDS: CEFTRIAXONE PMX 1GM/50ML 50 ML IV SCH (20:23)
[2019-11-10] MEDS: TEMAZEPAM 15 MG CAPSULE PO PRN (21:35)
[2019-11-11 00:40] VITALS: BP 105/66
[2019-11-11] MEDS: HYDROmorphone 1 MG/ML, 1ML INJ IV PRN ×2 (02:37→09:23)
[2019-11-11] MEDS: HYDROcodone/APAP 5/325 TABLET PO PRN ×2 (02:38→11:41)
[2019-11-11] MEDS: SUCRALFATE 1 GM TABLET PO SCH ×2 (05:11→11:41)
[2019-11-11 05:24] LABS: ALBUMIN 1.5 g/dL (3.4-5.0); ANION GAP 3 mmol/L (5-15); CALCIUM 7.4 mg/dL (8.5-10.1); CHLORIDE 105 mmol/L (98-107); CREATININE 0.63 mg/dL (0.55-1.02)
[2019-11-11 06:00] LABS: MD YES; MEAN CORPUSCULAR HEMOGLOBIN 35.5 pg (27.0-34.8); MEAN CORPUSCULAR HGB CONC 34.1 g/dL (32.4-35.8); MEAN PLATELET VOLUME 7.4 fL (7.4-10.4); PLATELET COUNT 72 x10^3/uL (130-400); RED BLOOD COUNT 2.31 x10^6/uL (3.82-5.3); RED CELL DISTRIBUTION WIDTH 21.8 % (9.6-15.2)
[2019-11-11 06:03] LABS: ANISOCYTOSIS 1+; BASOS#(MANUAL) 0.09 x10^3/uL (0-0.1); BASOS% (MANUAL) 2 % (0-1); EOS#(MANUAL) 0.05 x10^3/uL (0.0-0.4); EOS% (MANUAL) 1 % (1-7); LYMPHS% (MANUAL) 17 % (22-44); MONOS#(MANUAL) 0.24 x10^3/uL (0.3-2.7); MONOS% (MANUAL) 5 % (2-9); POLYCHROMASIA 1+; SEG#(MANUAL) 3.53 x10^3/uL (1.8-6.8); SEGS% (MANUAL) 75 % (42-75)
[2019-11-11 06:04] LABS: ECHINOCYTES 1+
[2019-11-11 06:05] LABS: <PLATELET ESTIMATE> DECREASED; <PLT MORPHOLOGY> NORMAL PLT MORPH; ACANTHOCYTES 1+
[2019-11-11 06:44] VITALS: BP 93/56
[2019-11-11] MEDS: PANTOPRAZOLE 80 MG in SODIUM CHLORIDE 0.9% 100 ML IV SCH (07:00)
[2019-11-11] MEDS: LACTULOSE 10 GM/15 ML UDC PO SCH (08:11)
[2019-11-11] MEDS: ASCORBIC ACID 500 MG TABLET PO SCH (08:11)
[2019-11-11] MEDS: MULTIVITS,STRESS FORMULA 1 TABLET PO SCH (08:11)
[2019-11-11] MEDS: DIPHENHYDRAMINE 25 MG CAPSULE PO PRN (08:11)
[2019-11-11] MEDS: CHOLECALCIFEROL 400 UNITS TABLET PO SCH (08:11)
[2019-11-11] MEDS: MAGNESIUM OXIDE 400 MG TABLET PO SCH (08:11)
[2019-11-11] MEDS: K-LYTE 25 MEQ TABLET.EFF PO SCH (08:12)
[2019-11-11] MEDS: METOCLOPRAMIDE 5 MG/ML, 2ML IVPush PRN (08:12)
[2019-11-11 08:17] VITALS: BP 95/59
[2019-11-11 08:48] LABS: PROTHROMBIN TIME 21.3 Seconds (9.6-11.5)
[2019-11-11 09:15] VITALS: BP 101/63
[2019-11-11] MEDS ORDERED: PANTOPRAZOLE 40 MG IV IVPush SCH ×2 (10:00→21:00)
[2019-11-11] MEDS ORDERED: HYDR-3237 PO (11:08)
[2019-11-11] MEDS ORDERED: CHOL400T2 PO (11:08)
[2019-11-11] MEDS ORDERED: ASCO500T6 PO (11:08)
[2019-11-11] MEDS ORDERED: SUCR1TAB33 PO (11:08)
[2019-11-11] MEDS ORDERED: OMEP-110 PO ×4 (11:08→11:19)
[2019-11-11 12:01] VITALS: BP 110/69
[2019-11-12] MEDS ORDERED: CEFD300C37 PO (15:45)
[2019-11-12] MEDS ORDERED: SUCR1TAB33 PO (15:45)
[2019-11-12] MEDS ORDERED: LACT10SO28 PO (15:45)
[2019-11-12] MEDS ORDERED: FURO-93 PO (15:45)
[2019-11-12] MEDS ORDERED: OMEP-110 PO (15:45)
[2019-11-12] MEDS ORDERED: SPIR25TA PO (15:45)
== END 2019-11-11 12:12 | disposition home or self-care (01) | DRG 871 ==
LOC: ED 20:24 → EDIP 22:38 → 4EST 11-07 00:52
PROVIDERS: ATTEND Family Medicine
PROC: 0W9G3ZZ Drainage of Peritoneal Cavity, Percutaneous Approach (ICD-10-PCS; principal; 2019-11-06)
PROC: 30233N1 Transfusion of Nonautologous Red Blood Cells into Peripheral Vein, Percutaneous Approach (ICD-10-PCS; 2019-11-08)
PROC: 0DJ08ZZ Inspection of Upper Intestinal Tract, Via Natural or Artificial Opening Endoscopic (ICD-10-PCS; 2019-11-10)
PROC: 0DJD8ZZ Inspection of Lower Intestinal Tract, Via Natural or Artificial Opening Endoscopic (ICD-10-PCS; 2019-11-10)
DX: A41.9 Sepsis, unspecified organism (principal); E43 Unspecified severe protein-calorie malnutrition; J18.9 Pneumonia, unspecified organism; E87.1 Hypo-osmolality and hyponatremia; E87.2 Acidosis; K92.2 Gastrointestinal hemorrhage, unspecified; D53.9 Nutritional anemia, unspecified; D69.59 Other secondary thrombocytopenia; E55.9 Vitamin D deficiency, unspecified; Z68.24 Body mass index [BMI] 24.0-24.9, adult; E87.6 Hypokalemia; F10.10 Alcohol abuse, uncomplicated; K70.11 Alcoholic hepatitis with ascites; G89.29 Other chronic pain; K44.9 Diaphragmatic hernia without obstruction or gangrene; I10 Essential (primary) hypertension; K70.31 Alcoholic cirrhosis of liver with ascites; N30.91 Cystitis, unspecified with hematuria; Z83.3 Family history of diabetes mellitus; Z87.11 Personal history of peptic ulcer disease; Z98.84 Bariatric surgery status; Z80.0 Family history of malignant neoplasm of digestive organs
CPT/HCPCS: 36415; 36430; 49083; 70450; 74174; 76705; 80053; 80069; 80307; 81001; 81025; 82107; 82140; 82180; 82247; 82248; 82272; 82306; 82728; 83540; 83550; 83605; 83690; 83735; 84100; 84207; 84252; 84425; 84443; 84446; 84484; 84590; 84630; 85025; 85610; 86850; 86900; 86923; 87040; 87070; 87086; 87205; 87324; 89051; 93005; 93306; 96374; 96375; G0378; J0696; J1170; J2354; J2550; J2704; J3430; J3480; P9047; Q9967; C9113; J0330; J1200; J2060; J2270; J2765; J3475; J7050; P9016; Q0163

== ENCOUNTER 2019-11-12 02:26 | Observation (INO) | payer OTHER ==
[~2019-11-12] VITALS: Ht 160 cm; Wt 72.8 kg
[~2019-11-12 02:26] MED LIST changes: +ASCO500T6 PO; +CHOL400T2 PO; +HYDR-3237 PO; +OMEP-110 PO; +SUCR1TAB33 PO
--- NOTE | 2019-11-12 02:46 | NUR ---
PT BIB EMS TRANSFERRED FROM [place]. PT REPORTS SHE HAD A PEG TUBE REMOVED X2 YEARS AGO, REPORTS CLEANING THE SITE TONIGHT AND "IT STARTED SPOUTING DARK BLOOD EVERYWHERE". PRESENTS TO [place] WITH BLEEDING WELL CONTROLLED, PT REPORTS CONTINUED 10/10 ABDOMINAL PAIN, REQUESTING DILAUDID ON ARRIVAL. PT SEEN HERE EARLIER TODAY FOR MULT C/O INCLUDING CP. PT DENIES ANY OTHER MEDICAL C/O AT THIS TIME. PT CONNECTED TO MONITORING, ERMD IN ROOM TO EVAL PT ON ARRIVAL. CALL LIGHT WITHIN REACH, ALL SAFETY MEASURES IN PLACE.
[2019-11-12] MEDS ORDERED: HYDROmorphone 1 MG/ML, 1ML INJ ONE (02:54)
[2019-11-12] MEDS ORDERED: HYDROmorphone 1 MG/ML, 1ML INJ IV ONE (03:00)
--- NOTE | 2019-11-12 04:15 | NUR ---
FIRST ATTEMPT TO CALL REPORT
--- NOTE | 2019-11-12 04:18 | NUR ---
PT RESTING ON [facility]. MONITORING IN PLACE, CALL LIGHT WITHIN REACH, ALL SAFETY MEASURES IN PLACE.
[2019-11-12] MEDS ORDERED: METOCLOPRAMIDE 5 MG/ML, 2ML ONE (04:26)
[2019-11-12] MEDS ORDERED: METOCLOPRAMIDE 5 MG/ML, 2ML IVPush ONE (04:30)
[2019-11-12] MEDS ORDERED: POTASSIUM CHLORIDE 20 MEQ, MAGNESIUM SULFATE 2 GM, THIAMINE 200 MG, MVI ADULT 10 ML, FO... IV SCH (04:33)
[2019-11-12 04:48] VITALS: BP 94/60
[2019-11-12 04:54] VITALS: BP 114/69
[2019-11-12] MEDS ORDERED: DIPHENHYDRAMINE 25 MG CAPSULE PO PRN (05:00)
[2019-11-12] MEDS ORDERED: hydrALAzine 20 MG/ML, 1ML IVPush PRN (05:00)
[2019-11-12] MEDS ORDERED: METOCLOPRAMIDE 5 MG/ML, 2ML IVPush PRN (05:00)
[2019-11-12] MEDS: SUCRALFATE 1 GM TABLET PO SCH ×3 (05:07→16:22)
[2019-11-12 06:54] LABS: BASOPHILS # (AUTO) 0.03 x10^3/uL (0-0.1); BASOPHILS % (AUTO) 1 % (0-1); EOSINOPHILS # (AUTO) 0.13 x10^3/uL (0-0.4); EOSINOPHILS % (AUTO) 3 % (1-7); LYMPHOCYTES # (AUTO) 0.96 x10^3/uL (1-3.4); LYMPHOCYTES % (AUTO) 20 % (22-44); MD MORPH REVIEW ONLY; MEAN CORPUSCULAR HEMOGLOBIN 35.4 pg (27.0-34.8); MEAN CORPUSCULAR HGB CONC 33.3 g/dL (32.4-35.8); MEAN CORPUSCULAR VOLUME 106.2 fL (80-100); MEAN PLATELET VOLUME 7.3 fL (7.4-10.4); MONOCYTES # (AUTO) 0.35 x10^3/uL (0.2-0.8); MONOCYTES % (AUTO) 7 % (2-9); NEUTROPHILS # (AUTO) 3.43 x10^3/uL (1.8-6.8); NEUTROPHILS % (AUTO) 70 % (42-75); PLATELET COUNT 73 x10^3/uL (130-400); RED BLOOD COUNT 2.72 x10^6/uL (3.82-5.3)
[2019-11-12 06:55] LABS: <PLATELET ESTIMATE> DECREASED; <PLT MORPHOLOGY> NORMAL PLT MORPH; ACANTHOCYTES 1+; ANISOCYTOSIS 1+; ECHINOCYTES 1+; POLYCHROMASIA 1+
[2019-11-12 07:32] VITALS: BP 94/61
[2019-11-12] MEDS ORDERED: SPIRONOLACTONE 25 MG TABLET PO SCH (09:00)
[2019-11-12] MEDS ORDERED: MAGNESIUM OXIDE 400 MG TABLET PO SCH (09:00)
[2019-11-12] MEDS ORDERED: K-LYTE 25 MEQ TABLET.EFF PO SCH (09:00)
[2019-11-12] MEDS ORDERED: FUROSEMIDE 20 MG TABLET PO SCH (09:00)
[2019-11-12] MEDS ORDERED: OMEPRAZOLE 20 MG CAPSULE.DR PO SCH (09:00)
[2019-11-12] MEDS: LACTULOSE 10 GM/15 ML UDC PO SCH ×2 (09:31→16:22)
[2019-11-12] MEDS: HYDROmorphone 2 MG/ML, 1ML IVPush PRN ×2 (09:32→12:56)
[2019-11-12] MEDS: OXYcodone IR 5MG TABLET PO PRN ×2 (10:00→16:23)
[2019-11-12 13:58] VITALS: BP 96/58
[2019-11-12] MEDS ORDERED: SUCR1TAB33 PO (15:45)
[2019-11-12] MEDS ORDERED: CEFD300C37 PO (15:45)
[2019-11-12] MEDS ORDERED: FURO-93 PO (15:45)
[2019-11-12] MEDS ORDERED: OMEP-110 PO (15:45)
[2019-11-12] MEDS ORDERED: LACT10SO28 PO (15:45)
[2019-11-12] MEDS ORDERED: SPIR25TA PO (15:45)
[2019-11-12] MEDS ORDERED: CEFDINIR 300 MG CAPSULE PO SCH (21:00)
[2019-11-13] MEDS ORDERED: FOLIC ACID 1 MG TABLET PO SCH (09:00)
[2019-11-13] MEDS ORDERED: THIAMINE 100MG TABLET PO SCH (09:00)
== END 2019-11-12 18:00 | disposition home or self-care (01) ==
LOC: ED 03:42 → EDIP 04:14 → INTOOBSV 04:14 → 3N 04:31
PROVIDERS: ADMIT Family Medicine; ATTEND Internal Medicine
DX: R10.9 Unspecified abdominal pain (principal); D53.9 Nutritional anemia, unspecified; D68.9 Coagulation defect, unspecified; D69.6 Thrombocytopenia, unspecified; E43 Unspecified severe protein-calorie malnutrition; G89.29 Other chronic pain; F10.10 Alcohol abuse, uncomplicated; K65.2 Spontaneous bacterial peritonitis; K72.90 Hepatic failure, unspecified without coma; Z79.899 Other long term (current) drug therapy; Z98.84 Bariatric surgery status
CPT/HCPCS: 36415; 85014; 85018; 85025; 96365; 96366; 96375; 96376; 99284; G0378; J1170; J2765; J3411; J3475; J3480; J7042

== ENCOUNTER 2019-11-16 13:39 | Inpatient (IN) | payer OTHER ==
[~2019-11-16] VITALS: Ht 160 cm; Wt 77.7 kg
[~2019-11-16 13:39] MED LIST changes: +CEFD300C37 PO
--- NOTE | 2019-11-16 14:04 | NUR ---
Pt arrives to ed with new onset of fluid retention and abd distension. Pt has liver cirrohsis. Pt reports severe abd pain. Pt reports no sob, cough or fever. Pt reports that sheis in alot of pain due to the retention. Significant other at bedside. Pt requesting pain medications at this time. Pt informed that md will evaluate her and make clinical decision for pain control. Informed that RNs do not give pain medications without physcian orders. This RN inforemd ERP group pt in alot of pain and distended. Pt connected to monitors and call light in reach. Awaiting further orders.
[2019-11-16] MEDS ORDERED: SODIUM CHLORIDE FLUSH 10ML SYR IVF ONE (15:00)
[2019-11-16] MEDS ORDERED: MORPHINE SULFATE 4 MG/ML, 1ML ONE ×2 (15:15→17:20)
[2019-11-16] MEDS: MORPHINE SULFATE 4 MG/ML, 1ML IVPush PRN ×2 (15:18→17:21)
--- NOTE | 2019-11-16 15:22 | NUR ---
PORT ACCESSED FOLLOWING STERILE PROCEDURE POLICIES. BLOOD DRAWN, PT MEDICATED PER EMAR. PT WHEELED TO BR AND PROVIDED URINE SAMPLE. SAMPLE COLLECTED AND SENT TO LAB.
[2019-11-16 15:28] LABS: MICROSCOPIC NOT IND
[2019-11-16 15:34] LABS: CULTURE INDICATED? NO
[2019-11-16 15:38] LABS: INTERNATIONAL NORMALIZED RATIO 1.93 (0.93-1.1); PROTHROMBIN TIME 20.6 Seconds (9.6-11.5)
[2019-11-16] MEDS ORDERED: DIPHENHYDRAMINE 50 MG/ML, 1ML ONE (15:38)
[2019-11-16] MEDS ORDERED: METOCLOPRAMIDE 5 MG/ML, 2ML ONE (15:39)
[2019-11-16 15:40] LABS: ALANINE AMINOTRANSFERASE 24 U/L (12-78); ALBUMIN 1.6 g/dL (3.4-5.0); ANION GAP 9 mmol/L (5-15); CALCIUM 6.7 mg/dL (8.5-10.1); CHLORIDE 103 mmol/L (98-107); CREATININE 0.84 mg/dL (0.55-1.02)
[2019-11-16 15:45] LABS: ALKALINE PHOSPHATASE 205 U/L (45-117); BILIRUBIN,TOTAL 7.3 mg/dL (0.2-1.0); TOTAL PROTEIN 6.2 g/dL (6.4-8.2)
[2019-11-16 15:56] LABS: ACETONE, SERUM Negative (Negative)
[2019-11-16] MEDS ORDERED: METOCLOPRAMIDE 5 MG/ML, 2ML IVPush ONE ×2 (16:00→22:00)
[2019-11-16] MEDS ORDERED: DIPHENHYDRAMINE 50 MG/ML, 1ML IVPush ONE ×2 (16:00→22:00)
[2019-11-16 16:01] LABS: MEAN CORPUSCULAR HGB CONC 33.1 g/dL (32.4-35.8); MEAN CORPUSCULAR VOLUME 108.5 fL (80-100); MEAN PLATELET VOLUME 7.3 fL (7.4-10.4); PLATELET COUNT 84 x10^3/uL (130-400); RED BLOOD COUNT 2.26 x10^6/uL (3.82-5.3)
[2019-11-16 16:02] LABS: RED CELL DISTRIBUTION WIDTH 25.7 % (9.6-15.2)
[2019-11-16 16:25] LABS: MD YES
[2019-11-16 16:32] LABS: ANISOCYTOSIS 2+; LYMPH#(MANUAL) 1.04 x10^3/uL (1-3.4); LYMPHS% (MANUAL) 15 % (22-44); MONOS% (MANUAL) 13 % (2-9); SEG#(MANUAL) 4.97 x10^3/uL (1.8-6.8); SEGS% (MANUAL) 72 % (42-75)
[2019-11-16 16:33] LABS: ACANTHOCYTES 1+; ECHINOCYTES 1+; POLYCHROMASIA 1+
[2019-11-16 16:36] LABS: <PLATELET ESTIMATE> DECREASED; <PLT MORPHOLOGY> NORMAL PLT MORPH
--- NOTE | 2019-11-16 16:47 | NUR ---
MED SEAN FROM PHARMACY.
[2019-11-16] MEDS ORDERED: POTASSIUM CHLORIDE 40 MEQ in SODIUM CHLORIDE 0.9% 500 ML IV SCH (17:00)
[2019-11-16] MEDS ORDERED: BISACODYL 10 MG SUPP PR PRN (18:00)
[2019-11-16] MEDS ORDERED: POTASSIUM CHLORIDE 40 MEQ in SODIUM CHLORIDE 0.9% 500 ML IV ONE (18:00)
[2019-11-16] MEDS ORDERED: POLYETHYLENE GLYCOL 17 GM PACKET PO PRN (18:00)
[2019-11-16] MEDS ORDERED: SODIUM CHLORIDE FLUSH 10ML SYR IVF PRN (18:00)
--- NOTE | 2019-11-16 18:07 | NUR ---
REPORT GIVEN TO CODY SONG. PT IS READY FOR TRANSPORT AT THIS TIME.
--- NOTE | 2019-11-16 18:31 | NUR ---
PT TRANSPORTED TO FLOOR AT THIS TIME.
[2019-11-16 19:30] VITALS: BP 102/58
[2019-11-16] MEDS: LACTULOSE 10 GM/15 ML UDC PO SCH (20:30)
[2019-11-16] MEDS: PROMETHAZINE 25 MG/ML, 1ML IM PRN (20:30)
[2019-11-16] MEDS: OMEPRAZOLE 20 MG CAPSULE.DR PO SCH (20:30)
[2019-11-16] MEDS: OXYcodone IR 5MG TABLET PO PRN (20:31)
[2019-11-16] MEDS: POTASSIUM CHLORIDE 20 MEQ TAB.ER.PRT PO SCH (20:31)
[2019-11-16] MEDS: SUCRALFATE 1 GM TABLET PO SCH (20:31)
[2019-11-16] MEDS: THIAMINE 100MG TABLET PO SCH (20:31)
[2019-11-16] MEDS: SODIUM CHLORIDE FLUSH 10ML SYR IVF SCH (20:32)
[2019-11-16] MEDS ORDERED: TEMAZEPAM 15 MG CAPSULE PO ONE (22:00)
[2019-11-17] MEDS: OXYcodone IR 5MG TABLET PO PRN ×6 (00:33→20:57)
[2019-11-17 01:19] VITALS: BP 109/68
[2019-11-17 05:03] LABS: MEAN CORPUSCULAR HGB CONC 34.4 g/dL (32.4-35.8); MEAN CORPUSCULAR VOLUME 107.8 fL (80-100); MEAN PLATELET VOLUME 7.7 fL (7.4-10.4); PLATELET COUNT 69 x10^3/uL (130-400); RED BLOOD COUNT 2.16 x10^6/uL (3.82-5.3); RED CELL DISTRIBUTION WIDTH 27.1 % (9.6-15.2)
[2019-11-17 05:09] LABS: INTERNATIONAL NORMALIZED RATIO 1.98 (0.93-1.1); PROTHROMBIN TIME 21.1 Seconds (9.6-11.5)
[2019-11-17 05:12] LABS: ALBUMIN 1.5 g/dL (3.4-5.0); CALCIUM 6.8 mg/dL (8.5-10.1); CHLORIDE 102 mmol/L (98-107)
[2019-11-17 05:17] LABS: ALANINE AMINOTRANSFERASE 24 U/L (12-78); ALKALINE PHOSPHATASE 191 U/L (45-117); ANION GAP 7 mmol/L (5-15); BILIRUBIN,TOTAL 7.7 mg/dL (0.2-1.0); CREATININE 0.69 mg/dL (0.55-1.02); TOTAL PROTEIN 6.2 g/dL (6.4-8.2)
[2019-11-17] MEDS: SUCRALFATE 1 GM TABLET PO SCH ×4 (05:18→20:23)
[2019-11-17 05:42] LABS: MD YES
[2019-11-17 05:44] LABS: EOS#(MANUAL) 0.16 x10^3/uL (0.0-0.4); EOS% (MANUAL) 4 % (1-7); LYMPH#(MANUAL) 1.31 x10^3/uL (1-3.4); LYMPHS% (MANUAL) 32 % (22-44); MONOS#(MANUAL) 0.25 x10^3/uL (0.3-2.7); MONOS% (MANUAL) 6 % (2-9); SEG#(MANUAL) 2.38 x10^3/uL (1.8-6.8); SEGS% (MANUAL) 58 % (42-75)
[2019-11-17 05:45] LABS: ACANTHOCYTES 1+; ANISOCYTOSIS 2+; ECHINOCYTES 1+; POLYCHROMASIA 1+
[2019-11-17 05:46] LABS: OVALOCYTES 1+
[2019-11-17 05:47] LABS: SCHISTOCYTES 1+
[2019-11-17 05:48] LABS: <PLATELET ESTIMATE> DECREASED; <PLT MORPHOLOGY> NORMAL PLT MORPH
[2019-11-17 07:21] VITALS: BP 104/64
[2019-11-17] MEDS: FUROSEMIDE 20 MG TABLET PO SCH (08:38)
[2019-11-17] MEDS: MULTIVITAMINS/MINERALS TABLET PO SCH (08:38)
[2019-11-17] MEDS: LACTULOSE 10 GM/15 ML UDC PO SCH ×3 (08:38→20:24)
[2019-11-17] MEDS: FOLIC ACID 1 MG TABLET PO SCH (08:38)
[2019-11-17] MEDS: SPIRONOLACTONE 25 MG TABLET PO SCH (08:38)
[2019-11-17] MEDS: MAGNESIUM OXIDE 400 MG TABLET PO SCH (08:38)
[2019-11-17] MEDS: POTASSIUM CHLORIDE 20 MEQ TAB.ER.PRT PO SCH ×2 (08:38→20:24)
[2019-11-17] MEDS: ASCORBIC ACID 500 MG TABLET PO SCH ×2 (08:38→16:54)
[2019-11-17] MEDS: OMEPRAZOLE 20 MG CAPSULE.DR PO SCH ×2 (08:39→20:24)
[2019-11-17] MEDS: THIAMINE 100MG TABLET PO SCH ×2 (08:39→20:24)
[2019-11-17] MEDS: CHOLECALCIFEROL 400 UNITS TABLET PO SCH (08:39)
[2019-11-17] MEDS: SENNA/DOCUSATE TABLET PO SCH (08:42)
[2019-11-17] MEDS: SODIUM CHLORIDE FLUSH 10ML SYR IVF SCH ×2 (08:42→20:18)
[2019-11-17] MEDS: DIPHENHYDRAMINE 12.5MG/5ML, 10ML UDC PO PRN ×2 (12:30→20:17)
[2019-11-17] MEDS: PROMETHAZINE 25 MG/ML, 1ML IM PRN (13:43)
[2019-11-17 14:52] VITALS: BP 109/68
[2019-11-17 20:21] VITALS: BP 111/70
[2019-11-17] MEDS ORDERED: TEMAZEPAM 15 MG CAPSULE PO ONE (21:00)
[2019-11-18 00:27] VITALS: BP 115/63
[2019-11-18] MEDS: OXYcodone IR 5MG TABLET PO PRN ×6 (01:00→23:44)
[2019-11-18] MEDS: PROMETHAZINE 25 MG/ML, 1ML IM PRN ×2 (01:01→11:53)
[2019-11-18 05:17] LABS: ALANINE AMINOTRANSFERASE 21 U/L (12-78); ALBUMIN 1.6 g/dL (3.4-5.0); ANION GAP 4 mmol/L (5-15); CALCIUM 7.3 mg/dL (8.5-10.1); CHLORIDE 98 mmol/L (98-107); CREATININE 0.65 mg/dL (0.55-1.02)
[2019-11-18 05:20] LABS: ALKALINE PHOSPHATASE 169 U/L (45-117); BILIRUBIN,TOTAL 9.9 mg/dL (0.2-1.0); TOTAL PROTEIN 6.2 g/dL (6.4-8.2)
[2019-11-18] MEDS: SUCRALFATE 1 GM TABLET PO SCH ×4 (05:27→19:41)
[2019-11-18 05:51] LABS: MD YES; MEAN CORPUSCULAR HGB CONC 33.5 g/dL (32.4-35.8); MEAN CORPUSCULAR VOLUME 110.5 fL (80-100); MEAN PLATELET VOLUME 7.4 fL (7.4-10.4); PLATELET COUNT 67 x10^3/uL (130-400); RED BLOOD COUNT 2.04 x10^6/uL (3.82-5.3)
[2019-11-18 05:53] LABS: EOS#(MANUAL) 0.05 x10^3/uL (0.0-0.4); EOS% (MANUAL) 1 % (1-7); LYMPH#(MANUAL) 1.01 x10^3/uL (1-3.4); LYMPHS% (MANUAL) 22 % (22-44); MONOS#(MANUAL) 0.37 x10^3/uL (0.3-2.7); MONOS% (MANUAL) 8 % (2-9); SEG#(MANUAL) 3.17 x10^3/uL (1.8-6.8); SEGS% (MANUAL) 69 % (42-75)
[2019-11-18 05:54] LABS: <PLATELET ESTIMATE> DECREASED; ACANTHOCYTES 1+; ANISOCYTOSIS 2+; ECHINOCYTES 1+; POLYCHROMASIA 1+; SCHISTOCYTES 1+
[2019-11-18 05:55] LABS: <PLT MORPHOLOGY> NORMAL PLT MORPH
[2019-11-18 06:56] VITALS: BP 107/68
[2019-11-18] MEDS: LACTULOSE 10 GM/15 ML UDC PO SCH ×3 (08:24→19:39)
[2019-11-18] MEDS: DIPHENHYDRAMINE 12.5MG/5ML, 10ML UDC PO PRN ×3 (08:24→21:00)
[2019-11-18] MEDS: CHOLECALCIFEROL 400 UNITS TABLET PO SCH (08:25)
[2019-11-18] MEDS: MULTIVITAMINS/MINERALS TABLET PO SCH (08:25)
[2019-11-18] MEDS: MAGNESIUM OXIDE 400 MG TABLET PO SCH (08:25)
[2019-11-18] MEDS: FOLIC ACID 1 MG TABLET PO SCH (08:25)
[2019-11-18] MEDS: ASCORBIC ACID 500 MG TABLET PO SCH ×2 (08:25→14:59)
[2019-11-18] MEDS: OMEPRAZOLE 20 MG CAPSULE.DR PO SCH ×2 (08:25→19:41)
[2019-11-18] MEDS: THIAMINE 100MG TABLET PO SCH ×2 (08:25→19:40)
[2019-11-18] MEDS: FUROSEMIDE 20 MG TABLET PO SCH (08:25)
[2019-11-18] MEDS: SENNA/DOCUSATE TABLET PO SCH (08:25)
[2019-11-18] MEDS: SPIRONOLACTONE 25 MG TABLET PO SCH (08:25)
[2019-11-18] MEDS: SODIUM CHLORIDE FLUSH 10ML SYR IVF SCH ×2 (08:26→19:41)
[2019-11-18] MEDS: CEFTRIAXONE PMX 1GM/50ML 50 ML IV SCH (11:04)
[2019-11-18 12:32] VITALS: BP 111/72
[2019-11-18] MEDS: FUROSEMIDE 20 MG/2 ML IV SCH (16:11)
[2019-11-18] MEDS: ALBUMIN HUMAN 25% 50 ML IV SCH ×2 (16:11→21:01)
[2019-11-18 16:47] VITALS: BP 113/70
[2019-11-18 18:20] LABS: MICROSCOPIC NOT IND
[2019-11-18] MEDS ORDERED: POTASSIUM CHLORIDE 20 MEQ TAB.ER.PRT ONE (19:37)
[2019-11-18 19:51] VITALS: BP 108/65
[2019-11-18] MEDS ORDERED: TEMAZEPAM 15 MG CAPSULE PO ONE (21:00)
[2019-11-19] VITALS (12 sets, daily range): BP systolic 97–118; BP diastolic 51–74
[2019-11-19] MEDS: PROMETHAZINE 25 MG/ML, 1ML IM PRN ×3 (03:29→17:45)
[2019-11-19] MEDS: SUCRALFATE 1 GM TABLET PO SCH ×4 (05:11→21:21)
[2019-11-19] MEDS: OXYcodone IR 5MG TABLET PO PRN ×4 (05:11→22:47)
[2019-11-19] MEDS: DIPHENHYDRAMINE 12.5MG/5ML, 10ML UDC PO PRN ×2 (05:20→22:48)
[2019-11-19 05:47] LABS: ALANINE AMINOTRANSFERASE 18 U/L (12-78); ALBUMIN 1.8 g/dL (3.4-5.0); ANION GAP 6 mmol/L (5-15); CALCIUM 7.2 mg/dL (8.5-10.1); CHLORIDE 97 mmol/L (98-107); CREATININE 0.65 mg/dL (0.55-1.02)
[2019-11-19 05:49] LABS: ALKALINE PHOSPHATASE 155 U/L (45-117); BILIRUBIN,TOTAL 7.8 mg/dL (0.2-1.0); TOTAL PROTEIN 6.1 g/dL (6.4-8.2)
[2019-11-19 06:29] LABS: MEAN CORPUSCULAR HEMOGLOBIN 36.5 pg (27.0-34.8); MEAN CORPUSCULAR HGB CONC 32.9 g/dL (32.4-35.8); MEAN CORPUSCULAR VOLUME 110.8 fL (80-100); PLATELET COUNT 64 x10^3/uL (130-400); RED BLOOD COUNT 1.91 x10^6/uL (3.82-5.3); RED CELL DISTRIBUTION WIDTH 25.2 % (9.6-15.2)
[2019-11-19 06:31] LABS: BASOPHILS % (AUTO) 0 % (0-1); EOSINOPHILS # (AUTO) 0.06 x10^3/uL (0-0.4); EOSINOPHILS % (AUTO) 1 % (1-7); LYMPHOCYTES % (AUTO) 22 % (22-44); MD SCAN; MONOCYTES # (AUTO) 0.41 x10^3/uL (0.2-0.8); MONOCYTES % (AUTO) 8 % (2-9); NEUTROPHILS # (AUTO) 3.38 x10^3/uL (1.8-6.8); NEUTROPHILS % (AUTO) 68 % (42-75)
[2019-11-19] MEDS: SODIUM CHLORIDE FLUSH 10ML SYR IVF SCH ×2 (09:00→21:19)
[2019-11-19] MEDS: THIAMINE 100MG TABLET PO SCH ×2 (09:00→21:44)
[2019-11-19] MEDS: OMEPRAZOLE 20 MG CAPSULE.DR PO SCH ×2 (09:45→21:20)
[2019-11-19] MEDS: CHOLECALCIFEROL 400 UNITS TABLET PO SCH (09:45)
[2019-11-19] MEDS: MULTIVITAMINS/MINERALS TABLET PO SCH (09:45)
[2019-11-19] MEDS: FOLIC ACID 1 MG TABLET PO SCH (09:45)
[2019-11-19] MEDS: SENNA/DOCUSATE TABLET PO SCH (09:46)
[2019-11-19] MEDS: ASCORBIC ACID 500 MG TABLET PO SCH ×2 (09:46→17:46)
[2019-11-19] MEDS: SPIRONOLACTONE 25 MG TABLET PO SCH (09:46)
[2019-11-19] MEDS: MAGNESIUM OXIDE 400 MG TABLET PO SCH (09:46)
[2019-11-19] MEDS: LACTULOSE 10 GM/15 ML UDC PO SCH ×3 (09:47→21:20)
[2019-11-19] MEDS: FUROSEMIDE 20 MG/2 ML IV SCH ×2 (09:47→17:45)
[2019-11-19] MEDS: POTASSIUM CHLORIDE 20 MEQ TAB.ER.PRT PO SCH (11:20)
[2019-11-19] MEDS: ALBUMIN HUMAN 25% 50 ML IV SCH ×2 (11:21→22:48)
[2019-11-19 11:48] LABS: INTERNATIONAL NORMALIZED RATIO 2.15 (0.93-1.1)
[2019-11-19] MEDS: CEFTRIAXONE PMX 1GM/50ML 50 ML IV SCH (13:24)
[2019-11-20 00:52] VITALS: BP 105/66
[2019-11-20 01:35] VITALS: BP 101/66
[2019-11-20] MEDS: OXYcodone IR 5MG TABLET PO PRN ×5 (02:45→18:02)
[2019-11-20 04:43] LABS: OCCULT BLOOD POSITIVE (NEGATIVE)
[2019-11-20 05:05] LABS: ALANINE AMINOTRANSFERASE 17 U/L (12-78); ALBUMIN 2.1 g/dL (3.4-5.0); ANION GAP 5 mmol/L (5-15); CALCIUM 7.2 mg/dL (8.5-10.1); CHLORIDE 97 mmol/L (98-107); CREATININE 0.57 mg/dL (0.55-1.02)
[2019-11-20 05:07] LABS: ALKALINE PHOSPHATASE 152 U/L (45-117); BILIRUBIN,TOTAL 13.1 mg/dL (0.2-1.0); TOTAL PROTEIN 6.4 g/dL (6.4-8.2)
[2019-11-20] MEDS: SUCRALFATE 1 GM TABLET PO SCH ×4 (05:14→21:42)
[2019-11-20 05:57] LABS: MEAN CORPUSCULAR HEMOGLOBIN 35.7 pg (27.0-34.8); MEAN CORPUSCULAR HGB CONC 34.7 g/dL (32.4-35.8); MEAN CORPUSCULAR VOLUME 102.9 fL (80-100); RED BLOOD COUNT 2.55 x10^6/uL (3.82-5.3)
[2019-11-20 05:58] LABS: MD YES
[2019-11-20 05:59] LABS: MEAN PLATELET VOLUME 7.7 fL (7.4-10.4); PLATELET COUNT 64 x10^3/uL (130-400)
[2019-11-20 06:01] LABS: SEGS% (MANUAL) 75 % (42-75)
[2019-11-20 06:04] LABS: ANISOCYTOSIS 2+; BAND#(MANUAL) 0.07 x10^3/uL; BANDS%(MANUAL) 1 % (0-7); BASOS#(MANUAL) 0.07 x10^3/uL (0-0.1); BASOS% (MANUAL) 1 % (0-1); EOS#(MANUAL) 0.14 x10^3/uL (0.0-0.4); EOS% (MANUAL) 2 % (1-7); LYMPHS% (MANUAL) 16 % (22-44); MONOS#(MANUAL) 0.35 x10^3/uL (0.3-2.7); MONOS% (MANUAL) 5 % (2-9); SEG#(MANUAL) 5.24 x10^3/uL (1.8-6.8)
[2019-11-20 06:05] LABS: OVALOCYTES 1+; POLYCHROMASIA 1+; SCHISTOCYTES 1+
[2019-11-20 06:06] LABS: ECHINOCYTES 1+
[2019-11-20 06:07] LABS: <PLATELET ESTIMATE> DECREASED; <PLT MORPHOLOGY> NORMAL PLT MORPH; TEAR DROPS 1+
[2019-11-20] MEDS: FUROSEMIDE 20 MG/2 ML IV SCH (07:52)
[2019-11-20] MEDS: LACTULOSE 10 GM/15 ML UDC PO SCH ×3 (07:52→21:43)
[2019-11-20] MEDS: DIPHENHYDRAMINE 12.5MG/5ML, 10ML UDC PO PRN ×3 (07:53→22:13)
[2019-11-20] MEDS: POTASSIUM CHLORIDE 20 MEQ TAB.ER.PRT PO SCH (07:53)
[2019-11-20] MEDS: SPIRONOLACTONE 25 MG TABLET PO SCH (07:53)
[2019-11-20] MEDS: FOLIC ACID 1 MG TABLET PO SCH (07:53)
[2019-11-20] MEDS: OMEPRAZOLE 20 MG CAPSULE.DR PO SCH (07:53)
[2019-11-20] MEDS: CHOLECALCIFEROL 400 UNITS TABLET PO SCH (07:54)
[2019-11-20] MEDS: MULTIVITAMINS/MINERALS TABLET PO SCH (07:54)
[2019-11-20] MEDS: ASCORBIC ACID 500 MG TABLET PO SCH ×2 (07:54→16:02)
[2019-11-20] MEDS: THIAMINE 100MG TABLET PO SCH ×2 (07:54→21:42)
[2019-11-20] MEDS: SODIUM CHLORIDE FLUSH 10ML SYR IVF SCH ×2 (07:54→21:43)
[2019-11-20] MEDS: MAGNESIUM OXIDE 400 MG TABLET PO SCH (07:54)
[2019-11-20] MEDS: SENNA/DOCUSATE TABLET PO SCH (07:54)
[2019-11-20 08:58] VITALS: BP 110/71
[2019-11-20] MEDS: CEFTRIAXONE PMX 1GM/50ML 50 ML IV SCH (12:13)
[2019-11-20] MEDS: PANTOPRAZOLE 40 MG IV IVPush SCH (13:15)
[2019-11-20] MEDS: ALBUMIN HUMAN 25% 100 ML IV SCH ×2 (13:15→21:42)
[2019-11-20 14:34] VITALS: BP 106/64
[2019-11-20] MEDS ORDERED: FUROSEMIDE 20 MG/2 ML ONE (15:28)
[2019-11-20] MEDS: FUROSEMIDE 40 MG/4 ML IV SCH (15:56)
[2019-11-20] MEDS: morphine SULFATE ORAL.CONC 20 MG/ML PO PRN ×2 (16:00→21:43)
[2019-11-20 19:43] VITALS: BP 102/65
[2019-11-21] MEDS: PANTOPRAZOLE 40 MG IV IVPush SCH (00:51)
[2019-11-21 01:56] VITALS: BP 100/59
[2019-11-21] MEDS: OXYcodone IR 5MG TABLET PO PRN ×2 (02:04→07:38)
[2019-11-21] MEDS: DIPHENHYDRAMINE 12.5MG/5ML, 10ML UDC PO PRN ×2 (02:08→11:05)
[2019-11-21] MEDS: morphine SULFATE ORAL.CONC 20 MG/ML PO PRN ×2 (05:45→11:05)
[2019-11-21] MEDS: ALBUMIN HUMAN 25% 100 ML IV SCH (05:45)
[2019-11-21] MEDS: SUCRALFATE 1 GM TABLET PO SCH ×2 (05:45→11:31)
[2019-11-21 06:26] LABS: INTERNATIONAL NORMALIZED RATIO 2.26 (0.93-1.1); PROTHROMBIN TIME 24.2 Seconds (9.6-11.5)
[2019-11-21 06:28] LABS: ALANINE AMINOTRANSFERASE 14 U/L (12-78); ALBUMIN 2.4 g/dL (3.4-5.0); ANION GAP 6 mmol/L (5-15); CALCIUM 7.4 mg/dL (8.5-10.1); CHLORIDE 98 mmol/L (98-107); CREATININE 0.59 mg/dL (0.55-1.02)
[2019-11-21 06:30] LABS: ALKALINE PHOSPHATASE 109 U/L (45-117); BILIRUBIN,TOTAL 10.1 mg/dL (0.2-1.0); TOTAL PROTEIN 5.7 g/dL (6.4-8.2)
[2019-11-21 06:44] LABS: MEAN CORPUSCULAR HEMOGLOBIN 36.3 pg (27.0-34.8); MEAN CORPUSCULAR HGB CONC 34.8 g/dL (32.4-35.8); MEAN CORPUSCULAR VOLUME 104.3 fL (80-100); MEAN PLATELET VOLUME 7.6 fL (7.4-10.4); PLATELET COUNT 63 x10^3/uL (130-400); RED BLOOD COUNT 2.22 x10^6/uL (3.82-5.3); RED CELL DISTRIBUTION WIDTH 28.1 % (9.6-15.2)
[2019-11-21 06:45] LABS: MD YES
[2019-11-21 06:47] LABS: ANISOCYTOSIS 2+; EOS% (MANUAL) 4 % (1-7); LYMPH#(MANUAL) 0.74 x10^3/uL (1-3.4); LYMPHS% (MANUAL) 15 % (22-44); MONOS% (MANUAL) 4 % (2-9); OVALOCYTES 1+; POLYCHROMASIA 1+; SEG#(MANUAL) 3.77 x10^3/uL (1.8-6.8); SEGS% (MANUAL) 77 % (42-75)
[2019-11-21 06:48] LABS: ACANTHOCYTES 1+; ECHINOCYTES 1+; SCHISTOCYTES 1+
[2019-11-21 06:49] LABS: <PLATELET ESTIMATE> DECREASED; <PLT MORPHOLOGY> NORMAL PLT MORPH
[2019-11-21 07:12] VITALS: BP 94/57
[2019-11-21] MEDS ORDERED: FUROSEMIDE 20 MG/2 ML ONE (07:26)
[2019-11-21] MEDS: FUROSEMIDE 40 MG/4 ML IV SCH (07:37)
[2019-11-21] MEDS: ASCORBIC ACID 500 MG TABLET PO SCH (07:40)
[2019-11-21] MEDS: MULTIVITAMINS/MINERALS TABLET PO SCH (07:41)
[2019-11-21] MEDS: MAGNESIUM OXIDE 400 MG TABLET PO SCH (07:41)
[2019-11-21] MEDS: SPIRONOLACTONE 25 MG TABLET PO SCH (07:41)
[2019-11-21] MEDS: SENNA/DOCUSATE TABLET PO SCH (07:41)
[2019-11-21] MEDS: THIAMINE 100MG TABLET PO SCH (07:41)
[2019-11-21] MEDS: FOLIC ACID 1 MG TABLET PO SCH (07:41)
[2019-11-21] MEDS: CHOLECALCIFEROL 400 UNITS TABLET PO SCH (07:41)
[2019-11-21] MEDS: LACTULOSE 10 GM/15 ML UDC PO SCH (07:41)
[2019-11-21] MEDS: SODIUM CHLORIDE FLUSH 10ML SYR IVF SCH (07:43)
[2019-11-21] MEDS ORDERED: POTASSIUM CHLORIDE 20 MEQ TAB.ER.PRT PO SCH (09:00)
[2019-11-21] MEDS ORDERED: FURO-92 PO (10:28)
[2019-11-21] MEDS ORDERED: MAGN400T50 PO (10:28)
[2019-11-21] MEDS ORDERED: SPIR25TA PO (10:28)
[2019-11-21] MEDS ORDERED: TRAZ50TA66 PO (10:28)
[2019-11-21] MEDS ORDERED: OXYC5TAB3 PO (10:28)
[2019-11-21] MEDS ORDERED: CEPH-368 PO (10:28)
[2019-11-21] MEDS ORDERED: POTA20PA25 PO (10:28)
[2019-11-21] MEDS ORDERED: LIDOCAINE 1%, 10ML ONE (10:43)
[2019-11-21] MEDS: CEFTRIAXONE PMX 1GM/50ML 50 ML IV SCH (11:31)
== END 2019-11-21 11:25 | disposition home or self-care (01) | DRG 432 ==
LOC: ED 14:27 → EDIP 16:43 → 4EST 18:37
PROVIDERS: ADMIT Family Medicine; ATTEND Internal Medicine
PROC: 30233N1 Transfusion of Nonautologous Red Blood Cells into Peripheral Vein, Percutaneous Approach (ICD-10-PCS; principal; 2019-11-19)
DX: K70.31 Alcoholic cirrhosis of liver with ascites (principal); E43 Unspecified severe protein-calorie malnutrition; K65.2 Spontaneous bacterial peritonitis; E87.2 Acidosis; K76.6 Portal hypertension; R65.10 Systemic inflammatory response syndrome (SIRS) of non-infectious origin without acute organ dysfunction; D68.9 Coagulation defect, unspecified; D63.8 Anemia in other chronic diseases classified elsewhere; K70.40 Alcoholic hepatic failure without coma; D53.9 Nutritional anemia, unspecified; D69.6 Thrombocytopenia, unspecified; E87.6 Hypokalemia; G89.29 Other chronic pain; K29.20 Alcoholic gastritis without bleeding; Y90.6 Blood alcohol level of 120-199 mg/100 ml; Z66 Do not resuscitate; Z80.0 Family history of malignant neoplasm of digestive organs; Z87.11 Personal history of peptic ulcer disease; Z98.84 Bariatric surgery status; Z83.3 Family history of diabetes mellitus; Z68.30 Body mass index [BMI] 30.0-30.9, adult
CPT/HCPCS: 36415; 49083; 71045; 76700; 80053; 80307; 81003; 82010; 82140; 82272; 83605; 83690; 83880; 84703; 85014; 85018; 85025; 85610; 85730; 86850; 86900; 86923; 87040; 93005; 96365; 96375; 96376; 99285; G0378; J0696; J1940; J2550; J3480; P9047; C9113; J1200; J2270; J2765; J7030; P9016

== ENCOUNTER 2019-11-26 04:29 | Emergency (ER) | payer OTHER ==
[~2019-11-26] VITALS: Ht 160 cm; Wt 75.6 kg
[~2019-11-26 04:29] MED LIST changes: +CEPH-368 PO; +FURO-92 PO; +MAGN400T50 PO; +OXYC5TAB3 PO; +POTA20PA25 PO; +TRAZ50TA66 PO
[2019-11-26] MEDS ORDERED: METOCLOPRAMIDE 5 MG/ML, 2ML ONE (05:51)
[2019-11-26] MEDS ORDERED: DIPHENHYDRAMINE 50 MG/ML, 1ML ONE (05:51)
[2019-11-26] MEDS ORDERED: morphine SULFATE 10 MG/ML, 1ML ONE (05:52)
[2019-11-26] MEDS ORDERED: METOCLOPRAMIDE 5 MG/ML, 2ML IVPush ONE (06:00)
[2019-11-26] MEDS ORDERED: DIPHENHYDRAMINE 25 MG CAPSULE PO ONE (06:00)
[2019-11-26] MEDS ORDERED: DIPHENHYDRAMINE 50 MG/ML, 1ML IV ONE (06:00)
[2019-11-26] MEDS ORDERED: ICN DIPHENHYDRAMINE 10 MG/ML INJ.DIL IV ONE (06:00)
[2019-11-26] MEDS ORDERED: morphine SULFATE 10 MG/ML, 1ML IVPush ONE (06:00)
[2019-11-26 06:13] LABS: ALANINE AMINOTRANSFERASE 16 U/L (12-78); ALBUMIN 2.1 g/dL (3.4-5.0); ANION GAP 4 mmol/L (5-15); CALCIUM 7.5 mg/dL (8.5-10.1); CHLORIDE 98 mmol/L (98-107); INTERNATIONAL NORMALIZED RATIO 2.52 (0.93-1.1)
[2019-11-26 06:15] LABS: MEAN CORPUSCULAR HGB CONC 33.5 g/dL (32.4-35.8); MEAN CORPUSCULAR VOLUME 107.6 fL (80-100); RED BLOOD COUNT 2.39 x10^6/uL (3.82-5.3); RED CELL DISTRIBUTION WIDTH 26.7 % (9.6-15.2)
[2019-11-26 06:16] LABS: ALKALINE PHOSPHATASE 145 U/L (45-117); BILIRUBIN,TOTAL 7.2 mg/dL (0.2-1.0); CREATININE 0.67 mg/dL (0.55-1.02); TOTAL PROTEIN 5.9 g/dL (6.4-8.2)
--- NOTE | 2019-11-26 06:23 | NUR ---
PATIENT UP TO BEDSIDE COMMODE TOLERATED WELL.
[2019-11-26 06:40] LABS: BASOPHILS # (AUTO) 0.01 x10^3/uL (0-0.1); BASOPHILS % (AUTO) 0 % (0-1); EOSINOPHILS # (AUTO) 0.17 x10^3/uL (0-0.4); EOSINOPHILS % (AUTO) 4 % (1-7); LYMPHOCYTES # (AUTO) 0.83 x10^3/uL (1-3.4); LYMPHOCYTES % (AUTO) 18 % (22-44); MD SCAN; MEAN PLATELET VOLUME 7.3 fL (7.4-10.4); MONOCYTES # (AUTO) 0.55 x10^3/uL (0.2-0.8); MONOCYTES % (AUTO) 12 % (2-9); NEUTROPHILS % (AUTO) 66 % (42-75); PLATELET COUNT 88 x10^3/uL (130-400)
--- NOTE | 2019-11-26 06:49 | NUR ---
REPORT GIVEN TO ONCOMING RN
[2019-11-26] MEDS ORDERED: POTASSIUM CHLORIDE 20 MEQ TAB.ER.PRT PO ONE (07:00)
[2019-11-26] MEDS ORDERED: POTASSIUM CHLORIDE 20 MEQ PACKET ONE (07:00)
[2019-11-26 07:34] LABS: MICROSCOPIC INDICATED
[2019-11-26 07:47] VITALS: BP 95/40
--- NOTE | 2019-11-26 07:47 | NUR ---
PT SLEEPING IN GURNEY WITH AT BEDSIDE, PT ON MONITOR, NO NEEDS AT THIS TIME. AWAITING LAB/RAD RESULTS. CALL LIGHT WITHIN [facility].
== END 2019-11-26 09:03 | disposition home or self-care (01) ==
LOC: ED 05:29
DX: G89.29 Other chronic pain (principal); R10.9 Unspecified abdominal pain; R11.2 Nausea with vomiting, unspecified; Z79.899 Other long term (current) drug therapy
CPT/HCPCS: 36415; 80053; 81001; 83605; 83690; 85025; 85610; 85730; 96374; 96375; 99284; J2270; J2765

== ENCOUNTER 2020-01-04 01:07 | Inpatient (IN) | payer OTHER ==
[~2020-01-04] VITALS: Ht 160 cm; Wt 72.0 kg
[~2020-01-04 01:07] MED LIST changes: -ASCO500T6 PO; +ASCO500T9 PO
[2020-01-04] MEDS ORDERED: SODIUM CHLORIDE 0.9% 1,000ML IVBOLUS ONE ×2 (01:30→03:30)
[2020-01-04] MEDS ORDERED: METOCLOPRAMIDE 5 MG/ML, 2ML IVPush ONE (01:30)
[2020-01-04] MEDS ORDERED: MORPHINE SULFATE 4 MG/ML, 1ML IVPush PRN (01:30)
[2020-01-04] MEDS ORDERED: MORPHINE SULFATE 4 MG/ML, 1ML ONE (01:48)
[2020-01-04] MEDS ORDERED: METOCLOPRAMIDE 5 MG/ML, 2ML ONE (01:48)
[2020-01-04 02:03] LABS: INTERNATIONAL NORMALIZED RATIO 2.33 (0.93-1.1); PROTHROMBIN TIME 24.9 Seconds (9.6-11.5)
[2020-01-04 02:04] LABS: ALANINE AMINOTRANSFERASE 28 U/L (12-78); ALBUMIN 2.1 g/dL (3.4-5.0); ANION GAP 8 mmol/L (5-15); CALCIUM 7.5 mg/dL (8.5-10.1); CHLORIDE 107 mmol/L (98-107); CREATININE 1.32 mg/dL (0.55-1.02)
[2020-01-04 02:09] LABS: ALKALINE PHOSPHATASE 118 U/L (45-117); BILIRUBIN,TOTAL 11.7 mg/dL (0.2-1.0); TOTAL PROTEIN 6.7 g/dL (6.4-8.2); TROPONIN I < 0.015 ng/mL (0.000-0.045)
[2020-01-04 02:29] LABS: MEAN CORPUSCULAR HEMOGLOBIN 36.6 pg (27.0-34.8); MEAN CORPUSCULAR HGB CONC 33.8 g/dL (32.4-35.8); MEAN CORPUSCULAR VOLUME 108.3 fL (80-100); MEAN PLATELET VOLUME 8.3 fL (7.4-10.4); RED CELL DISTRIBUTION WIDTH 28.4 % (9.6-15.2)
[2020-01-04 02:32] LABS: PLATELET COUNT 44 x10^3/uL (130-400)
[2020-01-04 02:39] LABS: MD YES
[2020-01-04 02:43] LABS: ANISOCYTOSIS 1+; BAND#(MANUAL) 0.28 x10^3/uL; BANDS%(MANUAL) 14 % (0-7); EOS#(MANUAL) 0.02 x10^3/uL (0.0-0.4); EOS% (MANUAL) 1 % (1-7); LYMPHS% (MANUAL) 20 % (22-44); METAMYELOCYTES# (MANUAL) 0.02 x10^3/uL (0-0); METAMYELOCYTES% (MANUAL) 1 % (0-1); MONOS#(MANUAL) 0.18 x10^3/uL (0.3-2.7); MONOS% (MANUAL) 9 % (2-9); MYELOCYTES# (MANUAL) 0.02 x10^3/uL (0-0); MYELOCYTES% (MANUAL) 1 % (0-0); SEG#(MANUAL) 1.08 x10^3/uL (1.8-6.8); SEGS% (MANUAL) 54 % (42-75)
[2020-01-04 02:44] LABS: ECHINOCYTES 2+; POLYCHROMASIA 1+
[2020-01-04 02:45] LABS: ACANTHOCYTES 1+; SCHISTOCYTES 1+
[2020-01-04 02:46] LABS: <PLATELET ESTIMATE> DECREASED; <PLT MORPHOLOGY> NORMAL PLT MORPH
[2020-01-04] MEDS ORDERED: CEFTRIAXONE PMX 1GM/50ML 50 ML ONE (03:07)
[2020-01-04] MEDS ORDERED: CEFTRIAXONE PMX 1GM/50ML 50 ML IV ONE (03:30)
--- NOTE | 2020-01-04 03:37 | NUR ---
TASK RN: HOSPITALIST IN ROOM AT THIS TIME. PT UPDATED ON POC. MEDICATED PER MAR. VSS. MONITORING IN PLACE. CALL LIGHT WITHIN REACH. ALL SAFETY MEASURES IN PLACE.
--- NOTE | 2020-01-04 03:45 | NUR ---
TASK RN: PT PROVIDED ICE CHIPS PER ORDER
[2020-01-04] MEDS ORDERED: PHYTONADIONE 5 MG in SODIUM CHLORIDE 0.9% 50 ML IV ONE (04:00)
[2020-01-04] MEDS ORDERED: ONDANSETRON 2MG/ML, 2ML IVPush PRN (04:00)
[2020-01-04] MEDS ORDERED: PANTOPRAZOLE 40 MG IV ONE (04:16)
--- NOTE | 2020-01-04 04:23 | NUR ---
TASK RN: PT MEDICATED PER MAR. UPDATED ON POC. MONITORING IN PLACE. ROOM DIMMED FOR PT COMFORT.
[2020-01-04] MEDS: PANTOPRAZOLE 40 MG IV IVPush SCH ×2 (04:25→17:15)
--- NOTE | 2020-01-04 06:09 | NUR ---
Pt resting comfortably in bed. Resp even and unlabored. Pt has no requests at this time.
--- NOTE | 2020-01-04 06:24 | NUR ---
CBC drawn from R chest port and sent to lab.
--- NOTE | 2020-01-04 07:00 | NUR ---
RECEIVED REPORT FROM PATRICIA AND ASSUMED CARE. PT SLEEPING BUT AROUSABLE, A&O. STATES SHE CONTINUES TO HAVE ABDOMINAL PAIN
[2020-01-04 07:08] LABS: MEAN CORPUSCULAR HEMOGLOBIN 37.2 pg (27.0-34.8); MEAN CORPUSCULAR VOLUME 109.3 fL (80-100); MEAN PLATELET VOLUME 7.7 fL (7.4-10.4); RED BLOOD COUNT 2.21 x10^6/uL (3.82-5.3); RED CELL DISTRIBUTION WIDTH 28.4 % (9.6-15.2)
[2020-01-04 07:15] LABS: MD YES
[2020-01-04 07:19] LABS: PLATELET COUNT 44 x10^3/uL (130-400)
[2020-01-04 07:20] LABS: ANISOCYTOSIS 1+; BANDS%(MANUAL) 13 % (0-7); EOS#(MANUAL) 0.09 x10^3/uL (0.0-0.4); EOS% (MANUAL) 4 % (1-7); LYMPH#(MANUAL) 0.44 x10^3/uL (1-3.4); LYMPHS% (MANUAL) 19 % (22-44); MONOS#(MANUAL) 0.09 x10^3/uL (0.3-2.7); MONOS% (MANUAL) 4 % (2-9); POLYCHROMASIA 1+; SEG#(MANUAL) 1.38 x10^3/uL (1.8-6.8); SEGS% (MANUAL) 60 % (42-75)
[2020-01-04 07:21] LABS: <PLATELET ESTIMATE> DECREASED; ACANTHOCYTES 1+; ECHINOCYTES 2+; SCHISTOCYTES 1+
[2020-01-04 07:22] LABS: <PLT MORPHOLOGY> NORMAL PLT MORPH
[2020-01-04] MEDS ORDERED: LORazepam 0.5MG TABLET PO PRN (07:30)
[2020-01-04] MEDS ORDERED: LORazepam 2 MG/ML, 1ML IV PRN ×3 (07:30)
[2020-01-04] MEDS ORDERED: LORazepam 1MG TABLET PO PRN ×3 (07:30)
--- NOTE | 2020-01-04 07:35 | NUR ---
REPORT TO LORENZO SONG PT TO BE TRANSPORTED TO FLOOR
[2020-01-04] MEDS: SPIRONOLACTONE 25 MG TABLET PO SCH (08:56)
[2020-01-04] MEDS: LACTULOSE 10 GM/15 ML UDC PO SCH ×3 (08:56→20:14)
[2020-01-04] MEDS: FUROSEMIDE 40 MG TABLET PO SCH ×2 (08:56→20:14)
[2020-01-04] MEDS: LORazepam 2 MG/ML, 1ML IV PRN ×5 (09:10→22:32)
[2020-01-04 14:17] VITALS: BP 110/57
[2020-01-04] MEDS: MORPHINE SULFATE 4 MG/ML, 1ML IVPush PRN ×2 (14:19→17:53)
[2020-01-04 14:24] LABS: OCCULT BLOOD POSITIVE (NEGATIVE)
[2020-01-04] MEDS: prednisOLONE 15 MG/5 ML ORAL SOLN PO SCH (17:15)
[2020-01-04] MEDS: CEFTRIAXONE PMX 2GM/50ML 50 ML IV SCH (17:52)
[2020-01-04 18:21] LABS: MD YES; MEAN CORPUSCULAR HEMOGLOBIN 37.3 pg (27.0-34.8); MEAN CORPUSCULAR HGB CONC 34.1 g/dL (32.4-35.8); MEAN CORPUSCULAR VOLUME 109.4 fL (80-100); MEAN PLATELET VOLUME 7.8 fL (7.4-10.4); RED BLOOD COUNT 2.41 x10^6/uL (3.82-5.3); RED CELL DISTRIBUTION WIDTH 28.8 % (9.6-15.2)
[2020-01-04 18:24] LABS: PLATELET COUNT 41 x10^3/uL (130-400)
[2020-01-04 18:33] VITALS: BP 113/55
[2020-01-04 18:41] LABS: ACANTHOCYTES 1+; ANISOCYTOSIS 1+; BAND#(MANUAL) 0.24 x10^3/uL; BANDS%(MANUAL) 12 % (0-7); ECHINOCYTES 2+; EOS#(MANUAL) 0.08 x10^3/uL (0.0-0.4); EOS% (MANUAL) 4 % (1-7); LYMPH#(MANUAL) 0.14 x10^3/uL (1-3.4); LYMPHS% (MANUAL) 7 % (22-44); METAMYELOCYTES# (MANUAL) 0.02 x10^3/uL (0-0); METAMYELOCYTES% (MANUAL) 1 % (0-1); MONOS#(MANUAL) 0.12 x10^3/uL (0.3-2.7); MONOS% (MANUAL) 6 % (2-9); POLYCHROMASIA 1+; SCHISTOCYTES 1+; SEGS% (MANUAL) 70 % (42-75)
[2020-01-04 18:42] LABS: <PLATELET ESTIMATE> DECREASED; <PLT MORPHOLOGY> NORMAL PLT MORPH
[2020-01-04 20:07] VITALS: BP 127/62
[2020-01-04] MEDS: TRAZODONE 50MG TABLET PO SCH (20:13)
[2020-01-05] MEDS: LORazepam 2 MG/ML, 1ML IV PRN (01:44)
[2020-01-05 04:01] VITALS: BP 118/55
[2020-01-05] MEDS: PANTOPRAZOLE 40 MG IV IVPush SCH ×2 (04:11→16:49)
[2020-01-05 04:28] LABS: MEAN CORPUSCULAR HEMOGLOBIN 36.8 pg (27.0-34.8); MEAN CORPUSCULAR HGB CONC 34.1 g/dL (32.4-35.8); MEAN PLATELET VOLUME 8.1 fL (7.4-10.4); RED BLOOD COUNT 2.27 x10^6/uL (3.82-5.3); RED CELL DISTRIBUTION WIDTH 27.6 % (9.6-15.2)
[2020-01-05 04:35] LABS: INTERNATIONAL NORMALIZED RATIO 1.92 (0.93-1.1); PROTHROMBIN TIME 20.5 Seconds (9.6-11.5)
[2020-01-05 04:36] LABS: ANION GAP 6 mmol/L (5-15); CALCIUM 7.9 mg/dL (8.5-10.1); CHLORIDE 105 mmol/L (98-107); CREATININE 1.07 mg/dL (0.55-1.02)
[2020-01-05 04:38] LABS: PLATELET COUNT 43 x10^3/uL (130-400)
[2020-01-05 04:40] LABS: MD YES
[2020-01-05 04:45] LABS: ACANTHOCYTES 1+; ANISOCYTOSIS 1+; BAND#(MANUAL) 0.23 x10^3/uL; BANDS%(MANUAL) 8 % (0-7); ECHINOCYTES 1+; LYMPH#(MANUAL) 0.35 x10^3/uL (1-3.4); LYMPHS% (MANUAL) 12 % (22-44); MONOS#(MANUAL) 0.26 x10^3/uL (0.3-2.7); MONOS% (MANUAL) 9 % (2-9); POLYCHROMASIA 1+; SCHISTOCYTES 1+; SEG#(MANUAL) 2.06 x10^3/uL (1.8-6.8); SEGS% (MANUAL) 71 % (42-75)
[2020-01-05 04:46] LABS: <PLATELET ESTIMATE> DECREASED; <PLT MORPHOLOGY> NORMAL PLT MORPH
[2020-01-05] MEDS ORDERED: ALBUMIN HUMAN 25% 100 ML IV ONE (08:00)
[2020-01-05] MEDS ORDERED: MAGNESIUM SULFATE PMX 2GM/50ML 50 ML IV ONE (08:00)
[2020-01-05 08:30] VITALS: BP 110/63
[2020-01-05] MEDS: LACTULOSE 10 GM/15 ML UDC PO SCH ×3 (08:36→21:02)
[2020-01-05] MEDS: prednisOLONE 15 MG/5 ML ORAL SOLN PO SCH ×3 (08:36→16:50)
[2020-01-05] MEDS: SPIRONOLACTONE 25 MG TABLET PO SCH (08:37)
[2020-01-05] MEDS: FUROSEMIDE 40 MG TABLET PO SCH ×2 (08:37→21:02)
[2020-01-05] MEDS ORDERED: CEFTRIAXONE PMX 1GM/50ML 50 ML IV SCH (09:00)
[2020-01-05] MEDS ORDERED: PROPOFOL 10 MG/ML, 20ML ONE (11:29)
[2020-01-05] MEDS ORDERED: FENTANYL PF 100 MCG/2ML IV PRN (12:00)
[2020-01-05] MEDS ORDERED: METOCLOPRAMIDE 5 MG/ML, 2ML IVPush PRN (12:00)
[2020-01-05] MEDS ORDERED: LORazepam 2 MG/ML, 1ML IVPush PRN (12:00)
[2020-01-05] MEDS ORDERED: OXYcodone 5 MG/5 ML ORAL.SOL UDC PO PRN (12:00)
[2020-01-05] MEDS ORDERED: SODIUM CHLORIDE 0.9% 500 ML IV ONE ×2 (13:00→13:11)
[2020-01-05] MEDS: MORPHINE SULFATE 4 MG/ML, 1ML IVPush PRN ×3 (14:52→22:19)
[2020-01-05] MEDS: SODIUM CHLORIDE 0.9% 1,000 ML IV SCH ×2 (14:52→21:13)
[2020-01-05 15:59] VITALS: BP 107/57
[2020-01-05] MEDS: CEFTRIAXONE PMX 2GM/50ML 50 ML IV SCH (16:49)
[2020-01-05] MEDS: POTASSIUM CHLORIDE 20 MEQ TAB.ER.PRT PO SCH (16:50)
[2020-01-05 18:38] VITALS: BP 119/62
[2020-01-05] MEDS: TRAZODONE 50MG TABLET PO SCH (21:01)
[2020-01-06 00:47] VITALS: BP 110/51
[2020-01-06] MEDS: PANTOPRAZOLE 40 MG IV IVPush SCH (05:23)
[2020-01-06 06:00] LABS: CHLORIDE 105 mmol/L (98-107); MEAN CORPUSCULAR HEMOGLOBIN 37.4 pg (27.0-34.8); MEAN CORPUSCULAR HGB CONC 34.4 g/dL (32.4-35.8); MEAN CORPUSCULAR VOLUME 108.7 fL (80-100); MEAN PLATELET VOLUME 7.9 fL (7.4-10.4); RED BLOOD COUNT 2.18 x10^6/uL (3.82-5.3); RED CELL DISTRIBUTION WIDTH 27.2 % (9.6-15.2)
[2020-01-06 06:07] LABS: ALANINE AMINOTRANSFERASE 18 U/L (12-78); ALBUMIN 2.1 g/dL (3.4-5.0); ALKALINE PHOSPHATASE 92 U/L (45-117); ANION GAP 6 mmol/L (5-15); BILIRUBIN,TOTAL 11.2 mg/dL (0.2-1.0); CALCIUM 7.9 mg/dL (8.5-10.1); CREATININE 0.79 mg/dL (0.55-1.02); TOTAL PROTEIN 6.1 g/dL (6.4-8.2)
[2020-01-06 06:09] LABS: PLATELET COUNT 41 x10^3/uL (130-400)
[2020-01-06 06:20] LABS: MD YES
[2020-01-06 06:24] LABS: LYMPH#(MANUAL) 0.72 x10^3/uL (1-3.4); LYMPHS% (MANUAL) 20 % (22-44); MONOS#(MANUAL) 0.43 x10^3/uL (0.3-2.7); MONOS% (MANUAL) 12 % (2-9); NRBC % (MANUAL) 1 % (0-1); SEG#(MANUAL) 2.45 x10^3/uL (1.8-6.8); SEGS% (MANUAL) 68 % (42-75)
[2020-01-06 06:25] LABS: ACANTHOCYTES 1+; ANISOCYTOSIS 1+; ECHINOCYTES 1+; POLYCHROMASIA 1+; SCHISTOCYTES 1+
[2020-01-06 06:26] LABS: <PLATELET ESTIMATE> DECREASED; <PLT MORPHOLOGY> NORMAL PLT MORPH
[2020-01-06 07:40] VITALS: BP 111/56
[2020-01-06] MEDS: prednisOLONE 15 MG/5 ML ORAL SOLN PO SCH ×3 (08:14→17:36)
[2020-01-06] MEDS: POTASSIUM CHLORIDE 20 MEQ TAB.ER.PRT PO SCH ×2 (08:15→15:43)
[2020-01-06] MEDS: LACTULOSE 10 GM/15 ML UDC PO SCH ×3 (08:16→20:46)
[2020-01-06] MEDS: SPIRONOLACTONE 25 MG TABLET PO SCH (08:16)
[2020-01-06] MEDS: FUROSEMIDE 40 MG TABLET PO SCH ×2 (08:17→20:46)
[2020-01-06] MEDS: SODIUM CHLORIDE 0.9% 1,000 ML IV SCH (08:17)
[2020-01-06] MEDS: MORPHINE SULFATE 4 MG/ML, 1ML IVPush PRN ×2 (08:31→11:28)
[2020-01-06] MEDS ORDERED: MAGNESIUM SULFATE PMX 2GM/50ML 50 ML IV ONE (10:00)
[2020-01-06 13:35] VITALS: BP 123/64
[2020-01-06] MEDS ORDERED: MORPHINE SULFATE 4 MG/ML, 1ML IVPush PRN (15:30)
[2020-01-06] MEDS: OXYcodone/APAP 5/325MG TABLET PO PRN (15:42)
[2020-01-06] MEDS: PANTOPRAZOLE 40MG TABLET PO SCH (15:42)
[2020-01-06] MEDS: RIFAXIMIN 550 MG TABLET PO SCH ×2 (15:43→20:46)
[2020-01-06] MEDS ORDERED: RIFA550T4 PO (16:10)
[2020-01-06] MEDS: CEFTRIAXONE PMX 2GM/50ML 50 ML IV SCH (17:36)
[2020-01-06 18:34] VITALS: BP 120/63
[2020-01-06] MEDS: TRAZODONE 50MG TABLET PO SCH (20:45)
[2020-01-07 00:26] VITALS: BP 109/63
[2020-01-07] MEDS: OXYcodone/APAP 5/325MG TABLET PO PRN ×3 (05:53→23:28)
[2020-01-07] MEDS: PANTOPRAZOLE 40MG TABLET PO SCH ×2 (05:53→16:22)
[2020-01-07 06:05] VITALS: BP 116/53
[2020-01-07] MEDS: LORazepam 1MG TABLET PO PRN ×3 (06:11→16:11)
[2020-01-07 06:12] LABS: CHLORIDE 104 mmol/L (98-107)
[2020-01-07 06:16] LABS: ANION GAP 6 mmol/L (5-15); CALCIUM 8.2 mg/dL (8.5-10.1); CREATININE 0.76 mg/dL (0.55-1.02)
[2020-01-07 07:06] LABS: MD YES; MEAN CORPUSCULAR HEMOGLOBIN 36.5 pg (27.0-34.8); MEAN CORPUSCULAR HGB CONC 33.9 g/dL (32.4-35.8); MEAN CORPUSCULAR VOLUME 107.8 fL (80-100); MEAN PLATELET VOLUME 8.1 fL (7.4-10.4); RED BLOOD COUNT 2.16 x10^6/uL (3.82-5.3)
[2020-01-07 07:10] LABS: BAND#(MANUAL) 0.37 x10^3/uL; BANDS%(MANUAL) 9 % (0-7); EOS#(MANUAL) 0.08 x10^3/uL (0.0-0.4); EOS% (MANUAL) 2 % (1-7); LYMPH#(MANUAL) 0.41 x10^3/uL (1-3.4); LYMPHS% (MANUAL) 10 % (22-44); METAMYELOCYTES# (MANUAL) 0.04 x10^3/uL (0-0); METAMYELOCYTES% (MANUAL) 1 % (0-1); MONOS#(MANUAL) 0.57 x10^3/uL (0.3-2.7); MONOS% (MANUAL) 14 % (2-9); NRBC % (MANUAL) 1 % (0-1); REACTIVE LYMPHS # (MANUAL) 0.04 x10^3/uL (0-0); REACTIVE LYMPHS % (MANUAL) 1 % (0-0); SEG#(MANUAL) 2.58 x10^3/uL (1.8-6.8); SEGS% (MANUAL) 63 % (42-75)
[2020-01-07 07:11] LABS: ANISOCYTOSIS 1+; POLYCHROMASIA 1+
[2020-01-07 07:13] LABS: <PLATELET ESTIMATE> DECREASED; <PLT MORPHOLOGY> NORMAL PLT MORPH; ACANTHOCYTES 1+; ECHINOCYTES 1+
[2020-01-07 07:17] LABS: PLATELET COUNT 43 x10^3/uL (130-400)
[2020-01-07] MEDS: prednisOLONE 15 MG/5 ML ORAL SOLN PO SCH ×3 (09:36→16:11)
[2020-01-07] MEDS: SPIRONOLACTONE 25 MG TABLET PO SCH (09:39)
[2020-01-07] MEDS: RIFAXIMIN 550 MG TABLET PO SCH ×2 (09:39→21:18)
[2020-01-07] MEDS: FUROSEMIDE 40 MG TABLET PO SCH ×2 (09:39→21:18)
[2020-01-07] MEDS: POTASSIUM CHLORIDE 20 MEQ TAB.ER.PRT PO SCH ×2 (09:40→16:13)
[2020-01-07] MEDS: LACTULOSE 10 GM/15 ML UDC PO SCH ×3 (09:40→21:18)
[2020-01-07 13:43] VITALS: BP 127/72
[2020-01-07] MEDS: CEFTRIAXONE PMX 2GM/50ML 50 ML IV SCH (16:11)
[2020-01-07 19:03] VITALS: BP 122/61
[2020-01-07] MEDS: TRAZODONE 50MG TABLET PO SCH (21:17)
[2020-01-08 00:47] VITALS: BP 132/70
[2020-01-08] MEDS: PANTOPRAZOLE 40MG TABLET PO SCH ×2 (05:55→16:37)
[2020-01-08] MEDS: OXYcodone/APAP 5/325MG TABLET PO PRN ×2 (05:59→18:14)
[2020-01-08 06:58] VITALS: BP 110/56
[2020-01-08] MEDS: POTASSIUM CHLORIDE 20 MEQ TAB.ER.PRT PO SCH ×2 (08:00→16:38)
[2020-01-08] MEDS: RIFAXIMIN 550 MG TABLET PO SCH ×2 (09:00→21:27)
[2020-01-08] MEDS: FUROSEMIDE 40 MG TABLET PO SCH ×2 (09:00→21:27)
[2020-01-08] MEDS: LACTULOSE 10 GM/15 ML UDC PO SCH ×3 (09:00→21:27)
[2020-01-08] MEDS ORDERED: POTASSIUM PHOSPHATE 44 MEQ in SODIUM CHLORIDE 0.9% 500 ML IV ONE (09:00)
[2020-01-08] MEDS: SPIRONOLACTONE 25 MG TABLET PO SCH (09:00)
[2020-01-08] MEDS: prednisOLONE 15 MG/5 ML ORAL SOLN PO SCH ×3 (09:20→16:38)
[2020-01-08 13:56] VITALS: BP 113/67
[2020-01-08] MEDS: CEFTRIAXONE PMX 2GM/50ML 50 ML IV SCH (18:14)
[2020-01-08 18:56] VITALS: BP 107/60
[2020-01-08] MEDS: TRAZODONE 50MG TABLET PO SCH (21:27)
[2020-01-09 01:04] VITALS: BP 105/55
[2020-01-09] MEDS: OXYcodone/APAP 5/325MG TABLET PO PRN ×4 (02:24→17:56)
[2020-01-09] MEDS: PANTOPRAZOLE 40MG TABLET PO SCH ×2 (05:11→17:01)
[2020-01-09 05:59] LABS: ALBUMIN 1.9 g/dL (3.4-5.0); ANION GAP 8 mmol/L (5-15); CALCIUM 7.9 mg/dL (8.5-10.1); CHLORIDE 103 mmol/L (98-107)
[2020-01-09 06:47] LABS: MEAN CORPUSCULAR HEMOGLOBIN 36.8 pg (27.0-34.8); MEAN CORPUSCULAR HGB CONC 33.7 g/dL (32.4-35.8); MEAN CORPUSCULAR VOLUME 109.2 fL (80-100); RED BLOOD COUNT 2.22 x10^6/uL (3.82-5.3); RED CELL DISTRIBUTION WIDTH 26.9 % (9.6-15.2)
[2020-01-09 06:51] LABS: MEAN PLATELET VOLUME 8.1 fL (7.4-10.4); PLATELET COUNT 56 x10^3/uL (130-400)
[2020-01-09 06:52] LABS: MD YES
[2020-01-09 07:02] LABS: BAND#(MANUAL) 0.46 x10^3/uL; BANDS%(MANUAL) 6 % (0-7); EOS#(MANUAL) 0.08 x10^3/uL (0.0-0.4); EOS% (MANUAL) 1 % (1-7); METAMYELOCYTES# (MANUAL) 0.08 x10^3/uL (0-0); METAMYELOCYTES% (MANUAL) 1 % (0-1); MONOS#(MANUAL) 0.99 x10^3/uL (0.3-2.7); MONOS% (MANUAL) 13 % (2-9); MYELOCYTES# (MANUAL) 0.08 x10^3/uL (0-0); MYELOCYTES% (MANUAL) 1 % (0-0); NRBC % (MANUAL) 2 % (0-1); REACTIVE LYMPHS # (MANUAL) 0.08 x10^3/uL (0-0); REACTIVE LYMPHS % (MANUAL) 1 % (0-0)
[2020-01-09 07:03] LABS: LYMPH#(MANUAL) 0.46 x10^3/uL (1-3.4); LYMPHS% (MANUAL) 6 % (22-44); SEGS% (MANUAL) 71 % (42-75)
[2020-01-09 07:04] LABS: ANISOCYTOSIS 1+; CRENATED 1+; POLYCHROMASIA 1+; SCHISTOCYTES 1+
[2020-01-09 07:05] LABS: <PLATELET ESTIMATE> DECREASED; <PLT MORPHOLOGY> NORMAL PLT MORPH
[2020-01-09 08:22] VITALS: BP 110/58
[2020-01-09] MEDS: FUROSEMIDE 40 MG TABLET PO SCH ×2 (09:00→21:32)
[2020-01-09] MEDS: prednisOLONE 15 MG/5 ML ORAL SOLN PO SCH ×3 (09:18→17:01)
[2020-01-09] MEDS: POTASSIUM CHLORIDE 20 MEQ TAB.ER.PRT PO SCH ×2 (09:19→17:01)
[2020-01-09] MEDS: LACTULOSE 10 GM/15 ML UDC PO SCH ×3 (09:20→21:32)
[2020-01-09] MEDS: SPIRONOLACTONE 25 MG TABLET PO SCH (09:20)
[2020-01-09] MEDS: RIFAXIMIN 550 MG TABLET PO SCH ×2 (09:20→21:33)
[2020-01-09 12:31] VITALS: BP 109/69
[2020-01-09] MEDS: CEFTRIAXONE PMX 2GM/50ML 50 ML IV SCH (17:05)
[2020-01-09 18:47] VITALS: BP 107/62
[2020-01-09 21:28] VITALS: BP 108/65
[2020-01-09] MEDS: TRAZODONE 50MG TABLET PO SCH (21:29)
[2020-01-10] MEDS: LORazepam 1MG TABLET PO PRN (00:33)
[2020-01-10 00:45] VITALS: BP 114/63
[2020-01-10] MEDS: OXYcodone/APAP 5/325MG TABLET PO PRN (02:30)
[2020-01-10] MEDS: PANTOPRAZOLE 40MG TABLET PO SCH (05:32)
[2020-01-10 07:06] VITALS: BP 104/60
[2020-01-10] MEDS: RIFAXIMIN 550 MG TABLET PO SCH (08:27)
[2020-01-10] MEDS: POTASSIUM CHLORIDE 20 MEQ TAB.ER.PRT PO SCH (08:27)
[2020-01-10] MEDS: prednisOLONE 15 MG/5 ML ORAL SOLN PO SCH (08:28)
[2020-01-10] MEDS: LACTULOSE 10 GM/15 ML UDC PO SCH (08:28)
[2020-01-10] MEDS: FUROSEMIDE 40 MG TABLET PO SCH (08:28)
[2020-01-10] MEDS: SPIRONOLACTONE 25 MG TABLET PO SCH (08:28)
[2020-01-10] MEDS ORDERED: CIPR500T87 PO (09:34)
== END 2020-01-10 11:56 | disposition home or self-care (01) | DRG 871 ==
LOC: ED 01:58 → EDIP 03:21 → 4WST 08:18 → DCLOUNGE 01-10 11:53
PROVIDERS: ADMIT Internal Medicine; ATTEND Family Medicine
PROC: 0DJ08ZZ Inspection of Upper Intestinal Tract, Via Natural or Artificial Opening Endoscopic (ICD-10-PCS; principal; 2020-01-05 13:00)
DX: A41.50 Gram-negative sepsis, unspecified (principal); E43 Unspecified severe protein-calorie malnutrition; N17.0 Acute kidney failure with tubular necrosis; I85.01 Esophageal varices with bleeding; K65.2 Spontaneous bacterial peritonitis; D61.818 Other pancytopenia; D68.9 Coagulation defect, unspecified; D69.59 Other secondary thrombocytopenia; E87.6 Hypokalemia; D69.6 Thrombocytopenia, unspecified; D64.9 Anemia, unspecified; K20.9 Esophagitis, unspecified; K42.9 Umbilical hernia without obstruction or gangrene; K70.31 Alcoholic cirrhosis of liver with ascites; T50.905A Adverse effect of unspecified drugs, medicaments and biological substances, initial encounter; E66.9 Obesity, unspecified; F10.229 Alcohol dependence with intoxication, unspecified; Z90.49 Acquired absence of other specified parts of digestive tract; I25.2 Old myocardial infarction; Z80.0 Family history of malignant neoplasm of digestive organs; Z83.3 Family history of diabetes mellitus; Z87.11 Personal history of peptic ulcer disease; Z79.899 Other long term (current) drug therapy; Z87.442 Personal history of urinary calculi; Z68.28 Body mass index [BMI] 28.0-28.9, adult
CPT/HCPCS: 36415; 71045; 74176; 76604; 76705; 80048; 80053; 80069; 80307; 82272; 83605; 83690; 83735; 84100; 84145; 84484; 84703; 85025; 85610; 85651; 86140; 86850; 86900; 87040; 87077; 87186; 87635; 88305; 93005; 96361; 96374; 96375; G0378; J0696; J2704; J3430; P9047; C9113; J2060; J2270; J2765; J3475; J7030; J7040; J7510